=== PATIENT | female | born 1940 | race Caucasian/White ===

== ENCOUNTER 2017-03-15 17:47 | Inpatient (IN) | payer MEDICARE, BC, MEDICAID ==
[2017-03-15] MEDS: SOD CHLORIDE 0.9% 500 ML IV (19:05)
[2017-03-15 19:12] LABS: ADD MAN DIFF? NO
[2017-03-15 19:14] LABS: BASOPHILS % 0.4 % (0.0-2.0); EOSINOPHILS # 0.2 10^3/ul (0.0-0.5); EOSINOPHILS % 2.1 % (0.0-7.0); HEMATOCRIT 39.7 % (37.0-47.0); HEMOGLOBIN 12.3 g/dl (12.0-16.0); LYMPHOCYTES # 1.9 10^3/ul (0.8-2.9); LYMPHOCYTES % 20.8 % (15.0-51.0); MEAN CORPUSCULAR HEMOGLOBIN 25.1 pg (29.0-33.0); MEAN CORPUSCULAR VOLUME 80.9 fl (82.0-101.0); MEAN PLATELET VOLUME 8.6 fl (7.4-10.4); MONOCYTE # 0.8 10^3/ul (0.3-0.9); MONOCYTES % 8.4 % (0.0-11.0); NEUTROPHILS % 67.3 % (39.0-77.0); PLATELET COUNT 265 10^3/UL (140-415); RED BLOOD COUNT 4.91 10^6/ul (4.20-5.40); RED CELL DISTRIBUTION WIDTH 17.1 % (11.5-14.5)
[2017-03-15] MEDS ORDERED: ONDANSETRON 4 MG INJ IV (19:30)
[2017-03-15] MEDS ORDERED: ACETAMINOPHEN 325 MG TAB PO (19:30)
[2017-03-15 19:40] LABS: ALANINE AMINOTRANSFERASE 42 IU/L (13-69); ALBUMIN 3.8 g/dl (3.3-4.9); ALBUMIN/GLOBULIN RATIO 1.02; ALKALINE PHOSPHATASE 97 IU/L (42-121); ANION GAP 12 (8-16); ASPARTATE AMINO TRANSFERASE 22 IU/L (15-46); BILIRUBIN,INDIRECT 0.2 mg/dl (0-1.1); BILIRUBIN,TOTAL 0.2 mg/dl (0.2-1.3); BLOOD UREA NITROGEN 23 mg/dl (7-20); CARBON DIOXIDE 34 mmol/L (21-31); CHLORIDE 100 mmol/L (97-110); CREATININE 0.53 mg/dl (0.44-1.00); GLUCOSE 140 mg/dl (70-220); LIPASE 144 U/L (23-300); POTASSIUM 4.2 mmol/L (3.5-5.1); SODIUM 142 mmol/L (135-144); TOTAL PROTEIN 7.5 g/dl (6.1-8.1)
[2017-03-15 19:59] LABS: TROPONIN-I < 0.012 ng/ml (0.00-0.12)
[2017-03-15] MEDS ORDERED: VANCOMYCIN IV PER PHARMACY XX (22:30)
[2017-03-15] MEDS: SOD CHLORIDE 0.45% 1,000 ML IV (22:47)
[2017-03-15] MEDS ORDERED: GLUCAGON 1 MG INJ IM (23:00)
[2017-03-15] MEDS ORDERED: GLUCOSE GEL 15 GRAM TUBE PO ×2 (23:00)
[2017-03-15] MEDS ORDERED: GLUCOSE GEL 15 GRAM TUBE BUCCAL (23:00)
[2017-03-15] MEDS ORDERED: DEXTROSE 50% 50 ML SYRINGE IV (23:00)
[2017-03-16] MEDS: PIPER-TAZO 3.375 GM IV (PMX) 100 ML IVPB ×4 (00:03→17:05)
[2017-03-16] MEDS: ATORVASTATIN 40 MG TAB GTB ×2 (00:03→21:32)
[2017-03-16] MEDS: VANCOMYCIN 1.5 GM in DEXTROSE 5% 500 ML IVPB (01:15)
[2017-03-16] MEDS: ALBUTEROL/IPRATROPIUM (NEB) 3 ML AMP NEB ×4 (02:04→21:13)
[2017-03-16] MEDS ORDERED: FLUDROCORTISONE 0.1 MG TAB PO (06:00)
[2017-03-16 06:26] LABS: ADD MAN DIFF? NO
[2017-03-16 06:35] LABS: BASOPHIL # 0.1 10^3/ul (0.0-0.1); BASOPHILS % 0.5 % (0.0-2.0); EOSINOPHILS # 0.2 10^3/ul (0.0-0.5); HEMATOCRIT 34.6 % (37.0-47.0); HEMOGLOBIN 10.8 g/dl (12.0-16.0); LYMPHOCYTES # 1.2 10^3/ul (0.8-2.9); LYMPHOCYTES % 12.7 % (15.0-51.0); MEAN CORPUSCULAR HEMOGLOBIN 25.1 pg (29.0-33.0); MEAN CORPUSCULAR HGB CONC 31.2 g/dl (32.0-37.0); MEAN CORPUSCULAR VOLUME 80.5 fl (82.0-101.0); MEAN PLATELET VOLUME 8.7 fl (7.4-10.4); MONOCYTE # 0.8 10^3/ul (0.3-0.9); MONOCYTES % 8.6 % (0.0-11.0); NEUTROPHILS % 75.2 % (39.0-77.0); PLATELET COUNT 225 10^3/UL (140-415); RED CELL DISTRIBUTION WIDTH 16.9 % (11.5-14.5)
[2017-03-16 06:35] LABS: WHITE BLOOD COUNT 9.3 10^3/ul (4.8-10.8)
[2017-03-16] MEDS: FLUDROCORTISONE 0.1 MG TAB GTB ×3 (06:36→21:32)
[2017-03-16 07:05] LABS: ANION GAP 10 (8-16); BLOOD UREA NITROGEN 18 mg/dl (7-20); CALCIUM 9.6 mg/dl (8.4-10.2); CARBON DIOXIDE 31 mmol/L (21-31); CHLORIDE 103 mmol/L (97-110); CREATININE 0.58 mg/dl (0.44-1.00); GLUCOSE 173 mg/dl (70-220); POTASSIUM 3.8 mmol/L (3.5-5.1); SODIUM 140 mmol/L (135-144)
[2017-03-16 07:15] LABS: FREE T4 (FREE THYROXINE) 1.79 ng/dl (0.78-2.44)
[2017-03-16 08:06] LABS: CHOLESTEROL 121 mg/dl (100-200)
[2017-03-16 08:06] LABS: CHOL/HDL RATIO 2.8 RATIO; HDL CHOLESTEROL 43 mg/dl (33-92); LDL CHOLESTEROL,CALCULATED 59 mg/dl; TRIGLYCERIDES 94 mg/dl (0-149)
[2017-03-16] MEDS: LISINOPRIL 20 MG TAB GTB ×2 (08:40→21:32)
[2017-03-16] MEDS: LEVETIRACETAM (100 MG/ML) 5ML CUP GTB ×2 (08:40→21:31)
[2017-03-16] MEDS: AMIODARONE 200 MG TAB GTB ×2 (08:40→21:33)
[2017-03-16] MEDS: CLOPIDOGREL 75 MG TAB GTB (08:40)
[2017-03-16] MEDS: SPIRONOLACTONE 25 MG TAB GTB (08:41)
[2017-03-16] MEDS: FERROUS SULFATE 60 MG/ML 5ML CUP GTB (08:41)
[2017-03-16] MEDS: MULTIVITAMINS/MINERALS TAB GTB (08:41)
[2017-03-16] MEDS: METOPROLOL 100 MG TAB GTB ×2 (08:41→21:32)
[2017-03-16] MEDS: POLYETHYLENE GLYCOL 17 GM PACKET GTB (08:41)
[2017-03-16] MEDS: POTASSIUM CHLORIDE 20 MEQ POWDER FOR ORAL SOLN GTB (08:41)
[2017-03-16] MEDS: FAMOTIDINE 20 MG TAB GTB (08:41)
[2017-03-16] MEDS: INSULIN ASPART [NOVOLOG] 3 ML PEN SC ×4 (08:42→21:00)
[2017-03-16] MEDS ORDERED: POTASSIUM CHLORIDE (SR) 20 MEQ TAB PO (09:00)
[2017-03-16] MEDS ORDERED: LEVETIRACETAM (100 MG/ML) 5ML CUP GTB (09:00)
[2017-03-16] MEDS ORDERED: FERROUS SULFATE (EC) 325 MG TAB PO (09:00)
[2017-03-16 09:33] LABS: HEMOGLOBIN A1C 6.4 % (0-5.9)
[2017-03-16] MEDS: IOHEXOL 100 ML (10:18)
[2017-03-16] MEDS: SOD CHLORIDE 0.9% 100 ML (10:18)
[2017-03-16 11:27] LABS: ADD UMIC YES; UR ASCORBIC ACID NEGATIVE (NEGATIVE); UR BACTERIA FEW /HPF (NONE SEEN); UR BILIRUBIN (Dip) NEGATIVE (NEGATIVE); UR BLOOD (Dip) NEGATIVE (NEGATIVE); UR CLARITY CLEAR (CLEAR); UR COLOR STRAW (YELLOW); UR GLUCOSE (Dip) NEGATIVE (NEGATIVE); UR KETONES (Dip) NEGATIVE (NEGATIVE); UR LEUKOCYTE ESTERASE (Dip) 2+ Leu/ul (NEGATIVE); UR NITRITE (Dip) NEGATIVE (NEGATIVE); UR RBC 1 /HPF (0-5); UR SPECIFIC GRAVITY (Dip) 1.009 (1.003-1.030); UR TOTAL PROTEIN (Dip) NEGATIVE (NEGATIVE); UR UROBILINOGEN (Dip) NEGATIVE (NEGATIVE); UR WBC 28 /HPF (0-5)
[2017-03-16] MEDS: DIGOXIN 0.125 MG TAB GTB (13:57)
[2017-03-16] MEDS: ENOXAPARIN 40 MG/0.4 ML SYG SC (16:22)
[2017-03-16] MEDS: SOD CHLORIDE 0.45% 1,000 ML IV (17:06)
[2017-03-16] MEDS: INSULIN GLARGINE [LANtus] 3 ML PEN SC (21:40)
[2017-03-17] MEDS: PIPER-TAZO 3.375 GM IV (PMX) 100 ML IVPB ×4 (00:13→18:03)
[2017-03-17] MEDS ORDERED: VANCOMYCIN 1 GM 250 ML IVPB (01:00)
[2017-03-17] MEDS: ALBUTEROL/IPRATROPIUM (NEB) 3 ML AMP NEB ×4 (01:04→20:27)
[2017-03-17] MEDS: VANCOMYCIN 1.5 GM in DEXTROSE 5% 500 ML IVPB (01:41)
[2017-03-17] MEDS: FLUDROCORTISONE 0.1 MG TAB GTB ×3 (05:35→20:32)
[2017-03-17 06:34] LABS: ADD MAN DIFF? NO
[2017-03-17 06:43] LABS: WHITE BLOOD COUNT 7.7 10^3/ul (4.8-10.8)
[2017-03-17 06:43] LABS: BASOPHILS % 0.4 % (0.0-2.0); EOSINOPHILS # 0.2 10^3/ul (0.0-0.5); EOSINOPHILS % 2.2 % (0.0-7.0); HEMATOCRIT 32.4 % (37.0-47.0); HEMOGLOBIN 10.2 g/dl (12.0-16.0); LYMPHOCYTES # 1.3 10^3/ul (0.8-2.9); LYMPHOCYTES % 16.7 % (15.0-51.0); MEAN CORPUSCULAR HEMOGLOBIN 25.4 pg (29.0-33.0); MEAN CORPUSCULAR HGB CONC 31.5 g/dl (32.0-37.0); MEAN CORPUSCULAR VOLUME 80.8 fl (82.0-101.0); MEAN PLATELET VOLUME 8.9 fl (7.4-10.4); MONOCYTE # 0.7 10^3/ul (0.3-0.9); MONOCYTES % 8.6 % (0.0-11.0); NEUTROPHIL # 5.5 10^3/ul (1.6-7.5); NEUTROPHILS % 71.2 % (39.0-77.0); PLATELET COUNT 207 10^3/UL (140-415); RED BLOOD COUNT 4.01 10^6/ul (4.20-5.40); RED CELL DISTRIBUTION WIDTH 17.1 % (11.5-14.5)
[2017-03-17 07:15] LABS: ANION GAP 9 (8-16); BLOOD UREA NITROGEN 20 mg/dl (7-20); CARBON DIOXIDE 33 mmol/L (21-31); CHLORIDE 103 mmol/L (97-110); CREATININE 0.61 mg/dl (0.44-1.00); GLUCOSE 158 mg/dl (70-220); POTASSIUM 3.5 mmol/L (3.5-5.1); SODIUM 141 mmol/L (135-144)
[2017-03-17] MEDS: INSULIN ASPART [NOVOLOG] 3 ML PEN SC ×4 (07:52→20:37)
[2017-03-17] MEDS: FAMOTIDINE 20 MG TAB GTB (09:20)
[2017-03-17] MEDS: POTASSIUM CHLORIDE 20 MEQ POWDER FOR ORAL SOLN GTB (09:20)
[2017-03-17] MEDS: SPIRONOLACTONE 25 MG TAB GTB (09:20)
[2017-03-17] MEDS: MULTIVITAMINS/MINERALS TAB GTB (09:20)
[2017-03-17] MEDS: FERROUS SULFATE 60 MG/ML 5ML CUP GTB (09:20)
[2017-03-17] MEDS: POLYETHYLENE GLYCOL 17 GM PACKET GTB (09:20)
[2017-03-17] MEDS: LEVETIRACETAM (100 MG/ML) 5ML CUP GTB ×2 (09:20→20:30)
[2017-03-17] MEDS: METOPROLOL 100 MG TAB GTB ×2 (09:21→20:32)
[2017-03-17] MEDS: AMIODARONE 200 MG TAB GTB ×2 (09:21→20:32)
[2017-03-17] MEDS: LISINOPRIL 20 MG TAB GTB ×2 (09:21→20:31)
[2017-03-17] MEDS: ENOXAPARIN 40 MG/0.4 ML SYG SC (09:23)
[2017-03-17 12:05] LABS: COLLAGEN/EPI 129 Secs. (51-198)
[2017-03-17 12:14] LABS: INR 1.07; PARTIAL THROMBOPLASTIN TIME 31.5 Sec (25.0-35.0); PT RATIO 1.1
[2017-03-17] MEDS: SOD CHLORIDE 0.45% 1,000 ML IV (12:26)
[2017-03-17] MEDS: DIGOXIN 0.125 MG TAB GTB (13:08)
[2017-03-17] MEDS: ATORVASTATIN 40 MG TAB GTB (20:30)
[2017-03-17] MEDS: INSULIN GLARGINE [LANtus] 3 ML PEN SC (20:37)
[2017-03-18] MEDS: PIPER-TAZO 3.375 GM IV (PMX) 100 ML IVPB ×3 (00:29→12:17)
[2017-03-18] MEDS: INSULIN ASPART [NOVOLOG] 3 ML PEN SC ×6 (01:00→21:00)
[2017-03-18] MEDS: ALBUTEROL/IPRATROPIUM (NEB) 3 ML AMP NEB ×4 (01:19→20:28)
[2017-03-18] MEDS: VANCOMYCIN 1.5 GM in DEXTROSE 5% 500 ML IVPB (01:24)
[2017-03-18] MEDS: FLUDROCORTISONE 0.1 MG TAB GTB ×3 (05:06→21:51)
[2017-03-18 06:33] LABS: ADD MAN DIFF? NO
[2017-03-18 06:39] LABS: WHITE BLOOD COUNT 7.6 10^3/ul (4.8-10.8)
[2017-03-18 06:39] LABS: BASOPHILS % 0.5 % (0.0-2.0); EOSINOPHILS # 0.2 10^3/ul (0.0-0.5); HEMATOCRIT 33.8 % (37.0-47.0); HEMOGLOBIN 10.7 g/dl (12.0-16.0); LYMPHOCYTES # 1.5 10^3/ul (0.8-2.9); LYMPHOCYTES % 20.2 % (15.0-51.0); MEAN CORPUSCULAR HEMOGLOBIN 25.3 pg (29.0-33.0); MEAN CORPUSCULAR HGB CONC 31.7 g/dl (32.0-37.0); MEAN CORPUSCULAR VOLUME 79.9 fl (82.0-101.0); MEAN PLATELET VOLUME 8.5 fl (7.4-10.4); MONOCYTE # 0.7 10^3/ul (0.3-0.9); NEUTROPHILS % 66.8 % (39.0-77.0); PLATELET COUNT 224 10^3/UL (140-415); RED BLOOD COUNT 4.23 10^6/ul (4.20-5.40); RED CELL DISTRIBUTION WIDTH 17.2 % (11.5-14.5)
[2017-03-18 07:05] LABS: ANION GAP 11 (8-16); BLOOD UREA NITROGEN 14 mg/dl (7-20); CALCIUM 9.4 mg/dl (8.4-10.2); CARBON DIOXIDE 30 mmol/L (21-31); CHLORIDE 105 mmol/L (97-110); CREATININE 0.61 mg/dl (0.44-1.00); GLUCOSE 105 mg/dl (70-220); POTASSIUM 3.3 mmol/L (3.5-5.1); SODIUM 143 mmol/L (135-144)
[2017-03-18] MEDS: LISINOPRIL 20 MG TAB GTB ×2 (09:41→21:51)
[2017-03-18] MEDS: LEVETIRACETAM (100 MG/ML) 5ML CUP GTB ×2 (09:41→21:47)
[2017-03-18] MEDS: MULTIVITAMINS/MINERALS TAB GTB (09:41)
[2017-03-18] MEDS: FERROUS SULFATE 60 MG/ML 5ML CUP GTB (09:41)
[2017-03-18] MEDS: POLYETHYLENE GLYCOL 17 GM PACKET GTB (09:41)
[2017-03-18] MEDS: POTASSIUM CHLORIDE 20 MEQ POWDER FOR ORAL SOLN GTB ×2 (09:41→15:10)
[2017-03-18] MEDS: FAMOTIDINE 20 MG TAB GTB (09:42)
[2017-03-18] MEDS: METOPROLOL 100 MG TAB GTB ×2 (09:42→21:50)
[2017-03-18] MEDS: SPIRONOLACTONE 25 MG TAB GTB (09:42)
[2017-03-18] MEDS: AMIODARONE 200 MG TAB GTB ×2 (09:42→21:51)
[2017-03-18] MEDS: ENOXAPARIN 40 MG/0.4 ML SYG SC (09:47)
[2017-03-18] MEDS: SOD CHLORIDE 0.45% 1,000 ML IV (10:30)
[2017-03-18] MEDS: DIGOXIN 0.125 MG TAB GTB (12:21)
[2017-03-18] MEDS: MEROPENEM 1 GM/50ML(PMX) 50 ML IVPB ×2 (14:24→22:09)
[2017-03-18] MEDS: ATORVASTATIN 40 MG TAB GTB (21:51)
[2017-03-18] MEDS: INSULIN GLARGINE [LANtus] 3 ML PEN SC (22:07)
[2017-03-19] MEDS: INSULIN ASPART [NOVOLOG] 3 ML PEN SC ×6 (01:00→21:00)
[2017-03-19] MEDS: ALBUTEROL/IPRATROPIUM (NEB) 3 ML AMP NEB ×4 (01:02→20:03)
[2017-03-19 01:44] LABS: VANCOMYCIN,TROUGH 12.2 ug/ml (10.0-20.0)
[2017-03-19] MEDS: VANCOMYCIN 1.5 GM in DEXTROSE 5% 500 ML IVPB (02:40)
[2017-03-19] MEDS: FLUDROCORTISONE 0.1 MG TAB GTB ×3 (05:09→21:35)
[2017-03-19] MEDS: SOD CHLORIDE 0.45% 1,000 ML IV (05:09)
[2017-03-19 06:18] LABS: ADD MAN DIFF? NO
[2017-03-19 06:27] LABS: BASOPHILS % 0.5 % (0.0-2.0); EOSINOPHILS # 0.2 10^3/ul (0.0-0.5); HEMATOCRIT 35.1 % (37.0-47.0); HEMOGLOBIN 10.9 g/dl (12.0-16.0); LYMPHOCYTES # 1.5 10^3/ul (0.8-2.9); LYMPHOCYTES % 19.3 % (15.0-51.0); MEAN CORPUSCULAR HGB CONC 31.1 g/dl (32.0-37.0); MEAN CORPUSCULAR VOLUME 80.5 fl (82.0-101.0); MEAN PLATELET VOLUME 8.6 fl (7.4-10.4); MONOCYTE # 0.8 10^3/ul (0.3-0.9); MONOCYTES % 9.7 % (0.0-11.0); NEUTROPHIL # 5.3 10^3/ul (1.6-7.5); NEUTROPHILS % 66.9 % (39.0-77.0); PLATELET COUNT 235 10^3/UL (140-415); RED BLOOD COUNT 4.36 10^6/ul (4.20-5.40); RED CELL DISTRIBUTION WIDTH 16.7 % (11.5-14.5)
[2017-03-19 06:27] LABS: WHITE BLOOD COUNT 7.9 10^3/ul (4.8-10.8)
[2017-03-19 07:25] LABS: ANION GAP 10 (8-16); BLOOD UREA NITROGEN 14 mg/dl (7-20); CALCIUM 9.4 mg/dl (8.4-10.2); CARBON DIOXIDE 30 mmol/L (21-31); CHLORIDE 106 mmol/L (97-110); CREATININE 0.59 mg/dl (0.44-1.00); GLUCOSE 108 mg/dl (70-220); POTASSIUM 3.3 mmol/L (3.5-5.1); SODIUM 143 mmol/L (135-144)
[2017-03-19] MEDS: POTASSIUM CHLORIDE 20 MEQ POWDER FOR ORAL SOLN GTB (08:55)
[2017-03-19] MEDS: FAMOTIDINE 20 MG TAB GTB (08:55)
[2017-03-19] MEDS: POLYETHYLENE GLYCOL 17 GM PACKET GTB (08:55)
[2017-03-19] MEDS: FERROUS SULFATE 60 MG/ML 5ML CUP GTB (08:55)
[2017-03-19] MEDS: LEVETIRACETAM (100 MG/ML) 5ML CUP GTB ×2 (08:55→21:35)
[2017-03-19] MEDS: LISINOPRIL 20 MG TAB GTB ×2 (08:56→21:37)
[2017-03-19] MEDS: SPIRONOLACTONE 25 MG TAB GTB (08:56)
[2017-03-19] MEDS: ENOXAPARIN 40 MG/0.4 ML SYG SC (08:56)
[2017-03-19] MEDS: MULTIVITAMINS/MINERALS TAB GTB (08:56)
[2017-03-19] MEDS: AMIODARONE 200 MG TAB GTB ×2 (08:57→21:37)
[2017-03-19] MEDS: METOPROLOL 100 MG TAB GTB ×2 (08:57→21:36)
[2017-03-19] MEDS: MEROPENEM 1 GM/50ML(PMX) 50 ML IVPB ×2 (08:58→21:36)
[2017-03-19] MEDS: POTASSIUM CHLORIDE 100 ML IVPB (13:28)
[2017-03-19] MEDS: DIGOXIN 0.125 MG TAB GTB (13:34)
[2017-03-19] MEDS: ATORVASTATIN 40 MG TAB GTB (21:36)
[2017-03-19] MEDS: INSULIN GLARGINE [LANtus] 3 ML PEN SC (21:39)
[2017-03-19] MEDS ORDERED: VANCOMYCIN 1.75 GM in D5W 500 ML IVPB (23:00)
[2017-03-20] MEDS: VANCOMYCIN 1.75 GM in D5W 500 ML IVPB (00:42)
[2017-03-20] MEDS: INSULIN ASPART [NOVOLOG] 3 ML PEN SC ×4 (01:00→17:45)
[2017-03-20] MEDS: ALBUTEROL/IPRATROPIUM (NEB) 3 ML AMP NEB ×4 (01:25→19:53)
[2017-03-20] MEDS: SOD CHLORIDE 0.45% 1,000 ML IV ×2 (02:30→17:00)
[2017-03-20] MEDS: FLUDROCORTISONE 0.1 MG TAB GTB ×3 (05:11→21:22)
[2017-03-20 06:27] LABS: ADD MAN DIFF? NO
[2017-03-20 06:35] LABS: WHITE BLOOD COUNT 8.6 10^3/ul (4.8-10.8)
[2017-03-20 06:35] LABS: BASOPHILS % 0.3 % (0.0-2.0); EOSINOPHILS # 0.2 10^3/ul (0.0-0.5); EOSINOPHILS % 2.5 % (0.0-7.0); HEMATOCRIT 37.3 % (37.0-47.0); HEMOGLOBIN 11.7 g/dl (12.0-16.0); LYMPHOCYTES # 1.9 10^3/ul (0.8-2.9); LYMPHOCYTES % 21.9 % (15.0-51.0); MEAN CORPUSCULAR HEMOGLOBIN 25.5 pg (29.0-33.0); MEAN CORPUSCULAR HGB CONC 31.4 g/dl (32.0-37.0); MEAN CORPUSCULAR VOLUME 81.4 fl (82.0-101.0); MEAN PLATELET VOLUME 8.7 fl (7.4-10.4); MONOCYTE # 0.8 10^3/ul (0.3-0.9); MONOCYTES % 9.7 % (0.0-11.0); NEUTROPHIL # 5.6 10^3/ul (1.6-7.5); NEUTROPHILS % 64.6 % (39.0-77.0); PLATELET COUNT 248 10^3/UL (140-415); RED BLOOD COUNT 4.58 10^6/ul (4.20-5.40); RED CELL DISTRIBUTION WIDTH 17.2 % (11.5-14.5)
[2017-03-20 06:44] LABS: ANION GAP 10 (8-16); BLOOD UREA NITROGEN 15 mg/dl (7-20); CALCIUM 9.3 mg/dl (8.4-10.2); CARBON DIOXIDE 32 mmol/L (21-31); CHLORIDE 105 mmol/L (97-110); CREATININE 0.59 mg/dl (0.44-1.00); GLUCOSE 159 mg/dl (70-220); POTASSIUM 3.8 mmol/L (3.5-5.1); SODIUM 143 mmol/L (135-144)
[2017-03-20] MEDS: SPIRONOLACTONE 25 MG TAB GTB (09:48)
[2017-03-20] MEDS: LEVETIRACETAM (100 MG/ML) 5ML CUP GTB ×2 (09:49→21:19)
[2017-03-20] MEDS: METOPROLOL 100 MG TAB GTB ×2 (09:49→21:22)
[2017-03-20] MEDS: FERROUS SULFATE 60 MG/ML 5ML CUP GTB (09:49)
[2017-03-20] MEDS: AMIODARONE 200 MG TAB GTB ×2 (09:49→21:22)
[2017-03-20] MEDS: MULTIVITAMINS/MINERALS TAB GTB (09:50)
[2017-03-20] MEDS: POLYETHYLENE GLYCOL 17 GM PACKET GTB (09:50)
[2017-03-20] MEDS: FAMOTIDINE 20 MG TAB GTB (09:50)
[2017-03-20] MEDS: MEROPENEM 1 GM/50ML(PMX) 50 ML IVPB ×2 (09:51→21:18)
[2017-03-20] MEDS: LISINOPRIL 20 MG TAB GTB ×2 (09:51→21:22)
[2017-03-20] MEDS: ENOXAPARIN 40 MG/0.4 ML SYG SC (09:52)
[2017-03-20] MEDS: POTASSIUM CHLORIDE 20 MEQ POWDER FOR ORAL SOLN GTB (09:59)
[2017-03-20] MEDS: DIGOXIN 0.125 MG TAB GTB (13:58)
[2017-03-20] MEDS: ATORVASTATIN 40 MG TAB GTB (21:22)
[2017-03-20] MEDS: INSULIN GLARGINE [LANtus] 3 ML PEN SC (21:28)
[2017-03-21] MEDS: DEXTROSE 5%-0.45% NACL 1,000 ML IV ×2 (00:16→13:20)
[2017-03-21] MEDS: VANCOMYCIN 1.75 GM in D5W 500 ML IVPB ×2 (00:16→23:59)
[2017-03-21] MEDS: ALBUTEROL/IPRATROPIUM (NEB) 3 ML AMP NEB ×4 (02:23→19:42)
[2017-03-21] MEDS: INSULIN ASPART [NOVOLOG] 3 ML PEN SC ×4 (06:07→18:00)
[2017-03-21 06:35] LABS: ADD MAN DIFF? NO
[2017-03-21 06:44] LABS: WHITE BLOOD COUNT 7.2 10^3/ul (4.8-10.8)
[2017-03-21 06:44] LABS: BASOPHILS % 0.6 % (0.0-2.0); EOSINOPHILS # 0.2 10^3/ul (0.0-0.5); EOSINOPHILS % 2.1 % (0.0-7.0); HEMATOCRIT 34.3 % (37.0-47.0); HEMOGLOBIN 10.7 g/dl (12.0-16.0); LYMPHOCYTES # 1.7 10^3/ul (0.8-2.9); LYMPHOCYTES % 24.1 % (15.0-51.0); MEAN CORPUSCULAR HEMOGLOBIN 25.5 pg (29.0-33.0); MEAN CORPUSCULAR HGB CONC 31.2 g/dl (32.0-37.0); MEAN CORPUSCULAR VOLUME 81.9 fl (82.0-101.0); MEAN PLATELET VOLUME 8.6 fl (7.4-10.4); MONOCYTE # 0.7 10^3/ul (0.3-0.9); MONOCYTES % 9.3 % (0.0-11.0); NEUTROPHIL # 4.5 10^3/ul (1.6-7.5); NEUTROPHILS % 62.9 % (39.0-77.0); PLATELET COUNT 203 10^3/UL (140-415); RED BLOOD COUNT 4.19 10^6/ul (4.20-5.40)
[2017-03-21] MEDS: FLUDROCORTISONE 0.1 MG TAB GTB ×3 (06:50→22:02)
[2017-03-21] MEDS: METOPROLOL 100 MG TAB GTB ×2 (09:00→21:14)
[2017-03-21] MEDS: ENOXAPARIN 40 MG/0.4 ML SYG SC (09:00)
[2017-03-21] MEDS: AMIODARONE 200 MG TAB GTB ×2 (09:00→21:13)
[2017-03-21] MEDS: SPIRONOLACTONE 25 MG TAB GTB (09:00)
[2017-03-21] MEDS: POLYETHYLENE GLYCOL 17 GM PACKET GTB (09:00)
[2017-03-21] MEDS: LEVETIRACETAM (100 MG/ML) 5ML CUP GTB ×2 (09:00→21:12)
[2017-03-21] MEDS: MULTIVITAMINS/MINERALS TAB GTB (09:00)
[2017-03-21] MEDS: LISINOPRIL 20 MG TAB GTB ×2 (09:00→21:14)
[2017-03-21] MEDS: FERROUS SULFATE 60 MG/ML 5ML CUP GTB (09:00)
[2017-03-21] MEDS: POTASSIUM CHLORIDE 20 MEQ POWDER FOR ORAL SOLN GTB (09:00)
[2017-03-21] MEDS: FAMOTIDINE 20 MG TAB GTB (09:00)
[2017-03-21] MEDS: MEROPENEM 1 GM/50ML(PMX) 50 ML IVPB ×2 (09:12→22:01)
[2017-03-21 10:27] LABS: COLLAGEN/EPI > 740 Secs. (51-198)
[2017-03-21 10:28] LABS: COLLAGEN/ADP 122 Secs. (40-147)
[2017-03-21] MEDS: DIGOXIN 0.125 MG TAB GTB (13:00)
[2017-03-21 13:28] LABS: INR 0.92; PROTIME 12.4 Sec (11.9-14.9)
[2017-03-21 13:29] LABS: PARTIAL THROMBOPLASTIN TIME 25.3 Sec (25.0-35.0)
[2017-03-21] MEDS ORDERED: PROPOFOL 20 ML (17:28)
[2017-03-21] MEDS ORDERED: FENTAnyl 50 MCG/ML VIAL (17:28)
[2017-03-21] MEDS ORDERED: ROCURONIUM 50 MG INJ (17:28)
[2017-03-21] MEDS ORDERED: FENTAnyl 50 MCG/ML VIAL IV ×3 (17:30)
[2017-03-21] MEDS ORDERED: EPHEDrine SULFATE 50 MG/5 ML SYG IV (17:30)
[2017-03-21] MEDS ORDERED: ALBUMIN HUMAN 5% 250 ML IV (17:30)
[2017-03-21] MEDS ORDERED: ONDANSETRON 4 MG INJ IV (17:30)
[2017-03-21] MEDS ORDERED: MEPERIDINE 25 MG INJ IV (17:30)
[2017-03-21] MEDS ORDERED: METOCLOPRAMIDE 10 MG INJ IV (17:30)
[2017-03-21] MEDS ORDERED: LABETALOL HCL 20MG INJ IV (17:30)
[2017-03-21] MEDS ORDERED: HYDROmorphONE (0.2 MG/ML) 10ML SYG IV ×3 (17:30)
[2017-03-21] MEDS ORDERED: DIPHENHYDRAMINE 50 MG INJ IV (17:30)
[2017-03-21] MEDS ORDERED: hydrALAzine 20 MG INJ IV (17:30)
[2017-03-21] MEDS ORDERED: MIDAZOLAM 1 MG/ML 2 ML INJ (17:58)
[2017-03-21] MEDS: SOD CHLORIDE 0.45% 1,000 ML IV ×2 (18:30→22:02)
[2017-03-21] MEDS ORDERED: PHENYLephrine (100 MCG/ML) 5ML SYG (18:35)
[2017-03-21] MEDS ORDERED: LABETALOL HCL 20MG INJ (18:35)
[2017-03-21] MEDS ORDERED: hydrALAzine 20 MG INJ (18:43)
[2017-03-21] MEDS ORDERED: ONDANSETRON 4 MG INJ (18:53)
[2017-03-21] MEDS ORDERED: METOCLOPRAMIDE 10 MG INJ (18:53)
[2017-03-21] MEDS ORDERED: SUGAMMADEX SODIUM 200 MG/2 ML VIAL IV (18:53)
[2017-03-21] MEDS ORDERED: DEXAMETHASONE 4 MG/ML 1 ML INJ (18:53)
[2017-03-21] MEDS ORDERED: CEFAZOLIN 1 GM INJ (18:54)
[2017-03-21] MEDS: GELATIN SIZE 100 SPONGE (19:04)
[2017-03-21] MEDS: THROMBIN 5000 UNIT VIAL (19:05)
[2017-03-21] MEDS: BACITRACIN 50000 UNITS INJ IRR (19:05)
[2017-03-21] MEDS: NEOMYC/POLYMYX/BACIT 30 GM OINT (19:20)
[2017-03-21 19:45] LABS: CSF MN% 82.7 %; CSF PMN% 17.3 %; CSF RBC 1000 /uL (0-0)
[2017-03-21 20:14] LABS: GLUCOSE,CSF 71 mg/dl (50-80)
[2017-03-21 20:37] LABS: CSF COLOR COLORLESS
[2017-03-21 20:37] LABS: CSF CLARITY CLEAR; CSF WBC 29 /cmm (0-10)
[2017-03-21 20:39] LABS: CSF#TUBE COUNT TUBE#1; CSF#TUBES REC'D 1
[2017-03-21] MEDS: ATORVASTATIN 40 MG TAB GTB (21:13)
[2017-03-21] MEDS: INSULIN GLARGINE [LANtus] 3 ML PEN SC (22:04)
[2017-03-22] MEDS: INSULIN ASPART [NOVOLOG] 3 ML PEN SC ×4 (00:06→18:00)
[2017-03-22] MEDS: ALBUTEROL/IPRATROPIUM (NEB) 3 ML AMP NEB ×4 (01:24→19:46)
[2017-03-22 04:44] LABS: ADD MAN DIFF? NO
[2017-03-22 04:45] LABS: BASOPHILS % 0.2 % (0.0-2.0); HEMOGLOBIN 11.5 g/dl (12.0-16.0); LYMPHOCYTES # 0.7 10^3/ul (0.8-2.9); LYMPHOCYTES % 5.6 % (15.0-51.0); MEAN CORPUSCULAR HEMOGLOBIN 25.5 pg (29.0-33.0); MEAN CORPUSCULAR HGB CONC 31.9 g/dl (32.0-37.0); MEAN CORPUSCULAR VOLUME 79.8 fl (82.0-101.0); MEAN PLATELET VOLUME 8.6 fl (7.4-10.4); MONOCYTE # 0.3 10^3/ul (0.3-0.9); MONOCYTES % 2.6 % (0.0-11.0); NEUTROPHIL # 11.9 10^3/ul (1.6-7.5); NEUTROPHILS % 90.8 % (39.0-77.0); PLATELET COUNT 245 10^3/UL (140-415); RED BLOOD COUNT 4.51 10^6/ul (4.20-5.40)
[2017-03-22 04:45] LABS: WHITE BLOOD COUNT 13.1 10^3/ul (4.8-10.8)
[2017-03-22 05:25] LABS: ANION GAP 10 (8-16); BLOOD UREA NITROGEN 12 mg/dl (7-20); CARBON DIOXIDE 30 mmol/L (21-31); CHLORIDE 104 mmol/L (97-110); GLUCOSE 190 mg/dl (70-220); SODIUM 140 mmol/L (135-144)
[2017-03-22] MEDS: FLUDROCORTISONE 0.1 MG TAB GTB ×3 (05:52→21:43)
[2017-03-22] MEDS: POTASSIUM CHLORIDE 20 MEQ POWDER FOR ORAL SOLN GTB (09:39)
[2017-03-22] MEDS: LEVETIRACETAM (100 MG/ML) 5ML CUP GTB ×2 (09:39→20:19)
[2017-03-22] MEDS: LISINOPRIL 20 MG TAB GTB ×2 (09:39→20:15)
[2017-03-22] MEDS: METOPROLOL 100 MG TAB GTB ×2 (09:40→20:14)
[2017-03-22] MEDS: FAMOTIDINE 20 MG TAB GTB (09:40)
[2017-03-22] MEDS: FERROUS SULFATE 60 MG/ML 5ML CUP GTB (09:40)
[2017-03-22] MEDS: MULTIVITAMINS/MINERALS TAB GTB (09:40)
[2017-03-22] MEDS: AMIODARONE 200 MG TAB GTB ×2 (09:40→20:14)
[2017-03-22] MEDS: SPIRONOLACTONE 25 MG TAB GTB (09:40)
[2017-03-22] MEDS: POLYETHYLENE GLYCOL 17 GM PACKET GTB (09:41)
[2017-03-22] MEDS: MEROPENEM 1 GM/50ML(PMX) 50 ML IVPB ×2 (09:42→20:19)
[2017-03-22] MEDS ORDERED: hydrALAzine 20 MG INJ (12:37)
[2017-03-22] MEDS ORDERED: niCARdipine 25 MG in SOD CHLORIDE 0.9% 250 ML IV (13:00)
[2017-03-22] MEDS: hydrALAzine 20 MG INJ IV (13:25)
[2017-03-22] MEDS: DIGOXIN 0.125 MG TAB GTB (13:25)
[2017-03-22] MEDS: ATORVASTATIN 40 MG TAB GTB (20:15)
[2017-03-22] MEDS: SOD CHLORIDE 0.45% 1,000 ML IV (20:19)
[2017-03-22] MEDS: INSULIN GLARGINE [LANtus] 3 ML PEN SC (20:55)
[2017-03-22] MEDS ORDERED: INSULIN GLARGINE [LANtus] 3 ML PEN SC (21:00)
[2017-03-22 23:23] LABS: VANCOMYCIN,TROUGH 18.8 ug/ml (10.0-20.0)
[2017-03-23] MEDS: VANCOMYCIN 1.75 GM in D5W 500 ML IVPB (00:46)
[2017-03-23] MEDS: DEXTROSE 50% 50 ML SYRINGE IV (00:48)
[2017-03-23] MEDS: ALBUTEROL/IPRATROPIUM (NEB) 3 ML AMP NEB ×4 (02:39→19:41)
[2017-03-23] MEDS: INSULIN ASPART [NOVOLOG] 3 ML PEN SC ×4 (05:16→18:00)
[2017-03-23] MEDS: FLUDROCORTISONE 0.1 MG TAB GTB ×3 (05:33→21:29)
[2017-03-23 06:19] LABS: ADD MAN DIFF? NO
[2017-03-23 06:23] LABS: WHITE BLOOD COUNT 8.9 10^3/ul (4.8-10.8)
[2017-03-23 06:23] LABS: BASOPHILS % 0.2 % (0.0-2.0); EOSINOPHILS % 0.3 % (0.0-7.0); HEMATOCRIT 34.4 % (37.0-47.0); HEMOGLOBIN 10.9 g/dl (12.0-16.0); LYMPHOCYTES # 1.7 10^3/ul (0.8-2.9); LYMPHOCYTES % 19.2 % (15.0-51.0); MEAN CORPUSCULAR HGB CONC 31.7 g/dl (32.0-37.0); MEAN CORPUSCULAR VOLUME 81.9 fl (82.0-101.0); MEAN PLATELET VOLUME 8.8 fl (7.4-10.4); MONOCYTES % 10.6 % (0.0-11.0); NEUTROPHIL # 6.2 10^3/ul (1.6-7.5); PLATELET COUNT 239 10^3/UL (140-415); RED CELL DISTRIBUTION WIDTH 17.7 % (11.5-14.5)
[2017-03-23 06:50] LABS: ANION GAP 10 (8-16); BLOOD UREA NITROGEN 13 mg/dl (7-20); CALCIUM 9.5 mg/dl (8.4-10.2); CARBON DIOXIDE 32 mmol/L (21-31); CHLORIDE 104 mmol/L (97-110); CREATININE 0.57 mg/dl (0.44-1.00); GLUCOSE 132 mg/dl (70-220); POTASSIUM 3.2 mmol/L (3.5-5.1); SODIUM 143 mmol/L (135-144)
[2017-03-23] MEDS: POLYETHYLENE GLYCOL 17 GM PACKET GTB (09:58)
[2017-03-23] MEDS: FERROUS SULFATE 60 MG/ML 5ML CUP GTB (09:58)
[2017-03-23] MEDS: LEVETIRACETAM (100 MG/ML) 5ML CUP GTB ×2 (09:58→21:12)
[2017-03-23] MEDS: POTASSIUM CHLORIDE 20 MEQ POWDER FOR ORAL SOLN GTB (09:59)
[2017-03-23] MEDS: AMIODARONE 200 MG TAB GTB ×2 (09:59→21:12)
[2017-03-23] MEDS: MULTIVITAMINS/MINERALS TAB GTB (09:59)
[2017-03-23] MEDS: FAMOTIDINE 20 MG TAB GTB (10:00)
[2017-03-23] MEDS: MEROPENEM 1 GM/50ML(PMX) 50 ML IVPB ×2 (10:00→21:11)
[2017-03-23] MEDS: LISINOPRIL 20 MG TAB GTB ×2 (10:00→21:12)
[2017-03-23] MEDS: METOPROLOL 100 MG TAB GTB ×2 (10:00→21:27)
[2017-03-23] MEDS: SPIRONOLACTONE 25 MG TAB GTB (10:01)
[2017-03-23] MEDS: DIGOXIN 0.125 MG TAB GTB (13:00)
[2017-03-23 19:47] LABS: ANION GAP 11 (8-16); BLOOD UREA NITROGEN 11 mg/dl (7-20); CALCIUM 9.9 mg/dl (8.4-10.2); CARBON DIOXIDE 31 mmol/L (21-31); CHLORIDE 107 mmol/L (97-110); CREATININE 0.62 mg/dl (0.44-1.00); GLUCOSE 110 mg/dl (70-220); POTASSIUM 3.5 mmol/L (3.5-5.1); SODIUM 145 mmol/L (135-144)
[2017-03-23] MEDS: ATORVASTATIN 40 MG TAB GTB (21:12)
[2017-03-23] MEDS: INSULIN GLARGINE [LANtus] 3 ML PEN SC (21:16)
[2017-03-24] MEDS ORDERED: VANCOMYCIN 1.5 GM in SOD CHLORIDE 0.9% 250 ML IVPB
[2017-03-24] MEDS: VANCOMYCIN 1.75 GM in D5W 500 ML IVPB (00:15)
[2017-03-24] MEDS: ALBUTEROL/IPRATROPIUM (NEB) 3 ML AMP NEB ×4 (01:37→19:25)
[2017-03-24] MEDS: INSULIN ASPART [NOVOLOG] 3 ML PEN SC ×5 (05:31→17:40)
[2017-03-24] MEDS: FLUDROCORTISONE 0.1 MG TAB GTB ×3 (05:32→21:51)
[2017-03-24 06:08] LABS: ADD MAN DIFF? NO
[2017-03-24 06:50] LABS: BASOPHILS % 0.4 % (0.0-2.0); EOSINOPHILS # 0.2 10^3/ul (0.0-0.5); EOSINOPHILS % 1.6 % (0.0-7.0); HEMATOCRIT 33.9 % (37.0-47.0); HEMOGLOBIN 10.7 g/dl (12.0-16.0); LYMPHOCYTES # 1.7 10^3/ul (0.8-2.9); MEAN CORPUSCULAR HEMOGLOBIN 25.6 pg (29.0-33.0); MEAN CORPUSCULAR HGB CONC 31.6 g/dl (32.0-37.0); MEAN CORPUSCULAR VOLUME 81.1 fl (82.0-101.0); MEAN PLATELET VOLUME 8.9 fl (7.4-10.4); MONOCYTES % 10.4 % (0.0-11.0); NEUTROPHIL # 6.5 10^3/ul (1.6-7.5); PLATELET COUNT 223 10^3/UL (140-415); RED BLOOD COUNT 4.18 10^6/ul (4.20-5.40); RED CELL DISTRIBUTION WIDTH 17.3 % (11.5-14.5)
[2017-03-24 06:50] LABS: WHITE BLOOD COUNT 9.4 10^3/ul (4.8-10.8)
[2017-03-24 06:52] LABS: BLOOD UREA NITROGEN 15 mg/dl (7-20); CALCIUM 8.8 mg/dl (8.4-10.2); CARBON DIOXIDE 33 mmol/L (21-31); CHLORIDE 104 mmol/L (97-110); CREATININE 0.56 mg/dl (0.44-1.00); GLUCOSE 209 mg/dl (70-220); SODIUM 144 mmol/L (135-144)
[2017-03-24 08:06] LABS: ANION GAP 10 (8-16)
[2017-03-24 08:09] LABS: POTASSIUM 3.2 mmol/L (3.5-5.1)
[2017-03-24] MEDS: METOPROLOL 100 MG TAB GTB ×2 (09:26→20:49)
[2017-03-24] MEDS: FAMOTIDINE 20 MG TAB GTB (09:26)
[2017-03-24] MEDS: MEROPENEM 1 GM/50ML(PMX) 50 ML IVPB ×2 (09:26→20:46)
[2017-03-24] MEDS: MULTIVITAMINS/MINERALS TAB GTB (09:26)
[2017-03-24] MEDS: SPIRONOLACTONE 25 MG TAB GTB (09:27)
[2017-03-24] MEDS: LEVETIRACETAM (100 MG/ML) 5ML CUP GTB ×2 (09:27→20:46)
[2017-03-24] MEDS: LISINOPRIL 20 MG TAB GTB ×2 (09:27→20:50)
[2017-03-24] MEDS: POLYETHYLENE GLYCOL 17 GM PACKET GTB (09:27)
[2017-03-24] MEDS: POTASSIUM CHLORIDE 20 MEQ POWDER FOR ORAL SOLN GTB (09:27)
[2017-03-24] MEDS: FERROUS SULFATE 60 MG/ML 5ML CUP GTB (09:27)
[2017-03-24] MEDS: AMIODARONE 200 MG TAB GTB ×2 (09:28→20:50)
[2017-03-24] MEDS: DIGOXIN 0.125 MG TAB GTB (14:03)
[2017-03-24] MEDS: ATORVASTATIN 40 MG TAB GTB (20:46)
[2017-03-24] MEDS: INSULIN GLARGINE [LANtus] 3 ML PEN SC (20:52)
[2017-03-25] MEDS: VANCOMYCIN 1.75 GM in D5W 500 ML IVPB (01:09)
[2017-03-25] MEDS: ALBUTEROL/IPRATROPIUM (NEB) 3 ML AMP NEB ×4 (01:50→19:44)
[2017-03-25] MEDS: hydrALAzine 20 MG INJ IV (01:59)
[2017-03-25] MEDS: FLUDROCORTISONE 0.1 MG TAB GTB ×3 (05:45→21:47)
[2017-03-25] MEDS: INSULIN ASPART [NOVOLOG] 3 ML PEN SC ×4 (06:00→17:40)
[2017-03-25 07:56] LABS: ADD MAN DIFF? NO
[2017-03-25 08:03] LABS: WHITE BLOOD COUNT 10.1 10^3/ul (4.8-10.8)
[2017-03-25 08:03] LABS: BASOPHIL # 0.1 10^3/ul (0.0-0.1); BASOPHILS % 0.5 % (0.0-2.0); EOSINOPHILS # 0.4 10^3/ul (0.0-0.5); EOSINOPHILS % 4.3 % (0.0-7.0); HEMATOCRIT 34.6 % (37.0-47.0); HEMOGLOBIN 10.8 g/dl (12.0-16.0); LYMPHOCYTES # 1.6 10^3/ul (0.8-2.9); LYMPHOCYTES % 15.8 % (15.0-51.0); MEAN CORPUSCULAR HEMOGLOBIN 25.3 pg (29.0-33.0); MEAN CORPUSCULAR HGB CONC 31.2 g/dl (32.0-37.0); MEAN PLATELET VOLUME 8.5 fl (7.4-10.4); MONOCYTE # 0.9 10^3/ul (0.3-0.9); MONOCYTES % 9.1 % (0.0-11.0); NEUTROPHILS % 69.6 % (39.0-77.0); PLATELET COUNT 247 10^3/UL (140-415); RED BLOOD COUNT 4.27 10^6/ul (4.20-5.40); RED CELL DISTRIBUTION WIDTH 17.2 % (11.5-14.5)
[2017-03-25] MEDS: MEROPENEM 1 GM/50ML(PMX) 50 ML IVPB ×2 (08:20→21:47)
[2017-03-25] MEDS: LEVETIRACETAM (100 MG/ML) 5ML CUP GTB ×2 (08:20→21:46)
[2017-03-25] MEDS: FERROUS SULFATE 60 MG/ML 5ML CUP GTB (08:20)
[2017-03-25] MEDS: FAMOTIDINE 20 MG TAB GTB (08:21)
[2017-03-25] MEDS: POTASSIUM CHLORIDE 20 MEQ POWDER FOR ORAL SOLN GTB (08:21)
[2017-03-25] MEDS: MULTIVITAMINS/MINERALS TAB GTB (08:21)
[2017-03-25] MEDS: METOPROLOL 100 MG TAB GTB ×2 (08:22→21:47)
[2017-03-25] MEDS: SPIRONOLACTONE 25 MG TAB GTB (08:23)
[2017-03-25] MEDS: AMIODARONE 200 MG TAB GTB ×2 (08:23→21:46)
[2017-03-25] MEDS: LISINOPRIL 20 MG TAB GTB ×2 (08:23→21:46)
[2017-03-25] MEDS: POLYETHYLENE GLYCOL 17 GM PACKET GTB (08:24)
[2017-03-25 08:25] LABS: ANION GAP 10 (8-16); BLOOD UREA NITROGEN 18 mg/dl (7-20); CARBON DIOXIDE 32 mmol/L (21-31); CHLORIDE 104 mmol/L (97-110); CREATININE 0.51 mg/dl (0.44-1.00); GLUCOSE 158 mg/dl (70-220); POTASSIUM 3.8 mmol/L (3.5-5.1); SODIUM 142 mmol/L (135-144)
[2017-03-25] MEDS: DIGOXIN 0.125 MG TAB GTB (12:34)
[2017-03-25] MEDS: ATORVASTATIN 40 MG TAB GTB (21:45)
[2017-03-25] MEDS: INSULIN GLARGINE [LANtus] 3 ML PEN SC (22:05)
[2017-03-25 23:45] LABS: VANCOMYCIN,TROUGH 18.5 ug/ml (10.0-20.0)
[2017-03-26] MEDS: VANCOMYCIN 1.75 GM in D5W 500 ML IVPB ×2 (01:05→23:54)
[2017-03-26 01:18] LABS: TROPONIN-I < 0.012 ng/ml (0.00-0.12)
[2017-03-26] MEDS: ALBUTEROL/IPRATROPIUM (NEB) 3 ML AMP NEB ×4 (01:31→19:37)
[2017-03-26] MEDS: FLUDROCORTISONE 0.1 MG TAB GTB ×3 (05:42→21:01)
[2017-03-26] MEDS: INSULIN ASPART [NOVOLOG] 3 ML PEN SC ×5 (05:50→23:54)
[2017-03-26 06:24] LABS: ADD MAN DIFF? NO
[2017-03-26 06:28] LABS: BASOPHILS % 0.4 % (0.0-2.0); EOSINOPHILS # 0.2 10^3/ul (0.0-0.5); EOSINOPHILS % 2.3 % (0.0-7.0); HEMOGLOBIN 9.7 g/dl (12.0-16.0); LYMPHOCYTES # 1.3 10^3/ul (0.8-2.9); LYMPHOCYTES % 16.1 % (15.0-51.0); MEAN CORPUSCULAR HEMOGLOBIN 25.9 pg (29.0-33.0); MEAN CORPUSCULAR HGB CONC 31.3 g/dl (32.0-37.0); MEAN CORPUSCULAR VOLUME 82.7 fl (82.0-101.0); MEAN PLATELET VOLUME 8.7 fl (7.4-10.4); MONOCYTE # 0.8 10^3/ul (0.3-0.9); MONOCYTES % 10.5 % (0.0-11.0); NEUTROPHIL # 5.6 10^3/ul (1.6-7.5); NEUTROPHILS % 69.9 % (39.0-77.0); PLATELET COUNT 191 10^3/UL (140-415); RED BLOOD COUNT 3.75 10^6/ul (4.20-5.40); RED CELL DISTRIBUTION WIDTH 17.4 % (11.5-14.5)
[2017-03-26 06:55] LABS: CHOL/HDL RATIO 2.4 RATIO; HDL CHOLESTEROL 34 mg/dl (33-92); LDL CHOLESTEROL,CALCULATED 30 mg/dl; TRIGLYCERIDES 90 mg/dl (0-149)
[2017-03-26 06:55] LABS: CHOLESTEROL 82 mg/dl (100-200)
[2017-03-26 07:28] LABS: ANION GAP 7 (8-16); BLOOD UREA NITROGEN 19 mg/dl (7-20); CALCIUM 8.6 mg/dl (8.4-10.2); CARBON DIOXIDE 34 mmol/L (21-31); CHLORIDE 104 mmol/L (97-110); CREATININE 0.61 mg/dl (0.44-1.00); GLUCOSE 165 mg/dl (70-220); SODIUM 141 mmol/L (135-144)
[2017-03-26 07:36] LABS: TROPONIN-I < 0.012 ng/ml (0.00-0.12)
[2017-03-26] MEDS: FERROUS SULFATE 60 MG/ML 5ML CUP GTB (09:43)
[2017-03-26] MEDS: POTASSIUM CHLORIDE 20 MEQ POWDER FOR ORAL SOLN GTB (09:44)
[2017-03-26] MEDS: LEVETIRACETAM (100 MG/ML) 5ML CUP GTB ×2 (09:46→20:59)
[2017-03-26] MEDS: AMIODARONE 200 MG TAB GTB ×2 (09:46→21:00)
[2017-03-26] MEDS: POLYETHYLENE GLYCOL 17 GM PACKET GTB (09:47)
[2017-03-26] MEDS: MULTIVITAMINS/MINERALS TAB GTB (09:47)
[2017-03-26] MEDS: METOPROLOL 100 MG TAB GTB ×2 (09:47→21:01)
[2017-03-26] MEDS: FAMOTIDINE 20 MG TAB GTB (09:47)
[2017-03-26] MEDS: LISINOPRIL 20 MG TAB GTB ×2 (09:48→21:01)
[2017-03-26] MEDS: SPIRONOLACTONE 25 MG TAB GTB (09:52)
[2017-03-26] MEDS: MEROPENEM 1 GM/50ML(PMX) 50 ML IVPB ×2 (09:57→21:05)
[2017-03-26] MEDS: BARIUM SULFATE 135 ML (E-Z HD) PO (11:15)
[2017-03-26] MEDS: DIGOXIN 0.125 MG TAB GTB (13:20)
[2017-03-26] MEDS: ATORVASTATIN 40 MG TAB GTB (21:01)
[2017-03-26] MEDS: INSULIN GLARGINE [LANtus] 3 ML PEN SC (22:03)
[2017-03-27] MEDS: ALBUTEROL/IPRATROPIUM (NEB) 3 ML AMP NEB ×4 (01:44→19:18)
[2017-03-27] MEDS: INSULIN ASPART [NOVOLOG] 3 ML PEN SC ×4 (06:00→23:38)
[2017-03-27] MEDS: FLUDROCORTISONE 0.1 MG TAB GTB ×3 (06:10→21:23)
[2017-03-27] MEDS: SPIRONOLACTONE 25 MG TAB GTB (09:13)
[2017-03-27] MEDS: FERROUS SULFATE 60 MG/ML 5ML CUP GTB (09:14)
[2017-03-27] MEDS: AMIODARONE 200 MG TAB GTB ×2 (09:14→21:23)
[2017-03-27] MEDS: METOPROLOL 100 MG TAB GTB ×2 (09:15→21:22)
[2017-03-27] MEDS: LEVETIRACETAM (100 MG/ML) 5ML CUP GTB ×2 (09:15→21:22)
[2017-03-27] MEDS: POTASSIUM CHLORIDE 20 MEQ POWDER FOR ORAL SOLN GTB (09:16)
[2017-03-27] MEDS: MULTIVITAMINS/MINERALS TAB GTB (09:16)
[2017-03-27] MEDS: FAMOTIDINE 20 MG TAB GTB (09:16)
[2017-03-27] MEDS: LISINOPRIL 20 MG TAB GTB ×2 (09:17→21:23)
[2017-03-27] MEDS: POLYETHYLENE GLYCOL 17 GM PACKET GTB (09:17)
[2017-03-27] MEDS: MEROPENEM 1 GM/50ML(PMX) 50 ML IVPB ×2 (09:45→21:22)
[2017-03-27] MEDS: DIGOXIN 0.125 MG TAB GTB (13:19)
[2017-03-27] MEDS: INSULIN GLARGINE [LANtus] 3 ML PEN SC (20:32)
[2017-03-27] MEDS: ATORVASTATIN 40 MG TAB GTB (21:23)
[2017-03-27] MEDS: VANCOMYCIN 1.75 GM in D5W 500 ML IVPB (23:38)
[2017-03-28] MEDS: ALBUTEROL/IPRATROPIUM (NEB) 3 ML AMP NEB ×4 (01:02→21:57)
[2017-03-28] MEDS: FLUDROCORTISONE 0.1 MG TAB GTB ×3 (05:24→21:46)
[2017-03-28] MEDS: INSULIN ASPART [NOVOLOG] 3 ML PEN SC ×3 (05:44→18:00)
[2017-03-28 08:20] LABS: ADD MAN DIFF? NO
[2017-03-28 08:26] LABS: BASOPHIL # 0.1 10^3/ul (0.0-0.1); BASOPHILS % 0.6 % (0.0-2.0); EOSINOPHILS # 0.3 10^3/ul (0.0-0.5); HEMATOCRIT 34.4 % (37.0-47.0); HEMOGLOBIN 10.6 g/dl (12.0-16.0); LYMPHOCYTES # 1.6 10^3/ul (0.8-2.9); MEAN CORPUSCULAR HEMOGLOBIN 25.2 pg (29.0-33.0); MEAN CORPUSCULAR HGB CONC 30.8 g/dl (32.0-37.0); MEAN CORPUSCULAR VOLUME 81.9 fl (82.0-101.0); MEAN PLATELET VOLUME 8.8 fl (7.4-10.4); MONOCYTE # 0.9 10^3/ul (0.3-0.9); MONOCYTES % 9.3 % (0.0-11.0); NEUTROPHIL # 6.5 10^3/ul (1.6-7.5); NEUTROPHILS % 69.7 % (39.0-77.0); PLATELET COUNT 234 10^3/UL (140-415); RED CELL DISTRIBUTION WIDTH 16.1 % (11.5-14.5)
[2017-03-28 08:26] LABS: WHITE BLOOD COUNT 9.3 10^3/ul (4.8-10.8)
[2017-03-28 08:49] LABS: ANION GAP 8 (8-16); BLOOD UREA NITROGEN 16 mg/dl (7-20); CALCIUM 9.3 mg/dl (8.4-10.2); CARBON DIOXIDE 36 mmol/L (21-31); CHLORIDE 102 mmol/L (97-110); CREATININE 0.56 mg/dl (0.44-1.00); GLUCOSE 109 mg/dl (70-220); POTASSIUM 3.7 mmol/L (3.5-5.1); SODIUM 142 mmol/L (135-144)
[2017-03-28] MEDS: FAMOTIDINE 20 MG TAB GTB (09:35)
[2017-03-28] MEDS: FERROUS SULFATE 60 MG/ML 5ML CUP GTB (09:36)
[2017-03-28] MEDS: AMIODARONE 200 MG TAB GTB ×2 (09:36→21:45)
[2017-03-28] MEDS: SPIRONOLACTONE 25 MG TAB GTB (09:36)
[2017-03-28] MEDS: POLYETHYLENE GLYCOL 17 GM PACKET GTB (09:37)
[2017-03-28] MEDS: MEROPENEM 1 GM/50ML(PMX) 50 ML IVPB ×2 (09:37→22:11)
[2017-03-28] MEDS: LEVETIRACETAM (100 MG/ML) 5ML CUP GTB ×2 (09:37→21:44)
[2017-03-28] MEDS: MULTIVITAMINS/MINERALS TAB GTB (09:37)
[2017-03-28] MEDS: POTASSIUM CHLORIDE 20 MEQ POWDER FOR ORAL SOLN GTB (09:37)
[2017-03-28] MEDS: METOPROLOL 100 MG TAB GTB ×2 (09:37→21:46)
[2017-03-28] MEDS: LISINOPRIL 20 MG TAB GTB ×2 (09:38→21:47)
[2017-03-28] MEDS: DIGOXIN 0.125 MG TAB GTB (12:44)
[2017-03-28] MEDS: ATORVASTATIN 40 MG TAB GTB (21:47)
[2017-03-28] MEDS: INSULIN GLARGINE [LANtus] 3 ML PEN SC (21:53)
[2017-03-29] MEDS: VANCOMYCIN 1.75 GM in D5W 500 ML IVPB (00:44)
[2017-03-29] MEDS: ALBUTEROL/IPRATROPIUM (NEB) 3 ML AMP NEB ×4 (01:42→20:09)
[2017-03-29] MEDS: FLUDROCORTISONE 0.1 MG TAB GTB ×3 (05:50→21:11)
[2017-03-29] MEDS: INSULIN ASPART [NOVOLOG] 3 ML PEN SC ×4 (05:59→18:00)
[2017-03-29 08:43] LABS: ADD MAN DIFF? NO
[2017-03-29 08:53] LABS: BASOPHIL # 0.1 10^3/ul (0.0-0.1); BASOPHILS % 0.6 % (0.0-2.0); EOSINOPHILS # 0.3 10^3/ul (0.0-0.5); EOSINOPHILS % 3.9 % (0.0-7.0); HEMATOCRIT 32.4 % (37.0-47.0); HEMOGLOBIN 10.3 g/dl (12.0-16.0); LYMPHOCYTES # 1.5 10^3/ul (0.8-2.9); LYMPHOCYTES % 17.4 % (15.0-51.0); MEAN CORPUSCULAR HGB CONC 31.8 g/dl (32.0-37.0); MEAN CORPUSCULAR VOLUME 81.8 fl (82.0-101.0); MONOCYTE # 0.8 10^3/ul (0.3-0.9); MONOCYTES % 9.3 % (0.0-11.0); NEUTROPHIL # 5.9 10^3/ul (1.6-7.5); NEUTROPHILS % 68.2 % (39.0-77.0); PLATELET COUNT 203 10^3/UL (140-415); RED BLOOD COUNT 3.96 10^6/ul (4.20-5.40); RED CELL DISTRIBUTION WIDTH 16.3 % (11.5-14.5)
[2017-03-29 08:53] LABS: WHITE BLOOD COUNT 8.6 10^3/ul (4.8-10.8)
[2017-03-29] MEDS: FERROUS SULFATE 60 MG/ML 5ML CUP GTB ×2 (09:00→12:25)
[2017-03-29 09:14] LABS: ANION GAP 8 (8-16); BLOOD UREA NITROGEN 17 mg/dl (7-20); CALCIUM 9.1 mg/dl (8.4-10.2); CARBON DIOXIDE 36 mmol/L (21-31); CHLORIDE 102 mmol/L (97-110); CREATININE 0.56 mg/dl (0.44-1.00); GLUCOSE 118 mg/dl (70-220); POTASSIUM 3.8 mmol/L (3.5-5.1); SODIUM 142 mmol/L (135-144)
[2017-03-29] MEDS: SPIRONOLACTONE 25 MG TAB GTB (09:15)
[2017-03-29] MEDS: AMIODARONE 200 MG TAB GTB ×2 (09:16→20:45)
[2017-03-29] MEDS: LEVETIRACETAM (100 MG/ML) 5ML CUP GTB ×2 (09:16→20:44)
[2017-03-29] MEDS: MEROPENEM 1 GM/50ML(PMX) 50 ML IVPB ×2 (09:17→20:44)
[2017-03-29] MEDS: FAMOTIDINE 20 MG TAB GTB (09:17)
[2017-03-29] MEDS: MULTIVITAMINS/MINERALS TAB GTB (09:17)
[2017-03-29] MEDS: POTASSIUM CHLORIDE 20 MEQ POWDER FOR ORAL SOLN GTB (09:17)
[2017-03-29] MEDS: METOPROLOL 100 MG TAB GTB ×2 (09:17→20:46)
[2017-03-29] MEDS: LISINOPRIL 20 MG TAB GTB ×2 (09:17→20:46)
[2017-03-29] MEDS: POLYETHYLENE GLYCOL 17 GM PACKET GTB (09:17)
[2017-03-29] MEDS: DIGOXIN 0.125 MG TAB GTB (12:24)
[2017-03-29] MEDS: ATORVASTATIN 40 MG TAB GTB (20:45)
[2017-03-29] MEDS: INSULIN GLARGINE [LANtus] 3 ML PEN SC (20:59)
[2017-03-30 00:18] LABS: VANCOMYCIN,TROUGH 19.2 ug/ml (10.0-20.0)
[2017-03-30] MEDS: ALBUTEROL/IPRATROPIUM (NEB) 3 ML AMP NEB ×4 (01:12→19:44)
[2017-03-30] MEDS: VANCOMYCIN 1.5 GM in SOD CHLORIDE 0.9% 250 ML IVPB (03:19)
[2017-03-30] MEDS: FLUDROCORTISONE 0.1 MG TAB GTB ×3 (05:15→22:35)
[2017-03-30] MEDS: INSULIN ASPART [NOVOLOG] 3 ML PEN SC ×5 (05:19→22:37)
[2017-03-30 08:34] LABS: ANION GAP 7 (8-16); BLOOD UREA NITROGEN 21 mg/dl (7-20); CALCIUM 8.9 mg/dl (8.4-10.2); CARBON DIOXIDE 39 mmol/L (21-31); CHLORIDE 104 mmol/L (97-110); CREATININE 0.61 mg/dl (0.44-1.00); GLUCOSE 112 mg/dl (70-220); POTASSIUM 3.8 mmol/L (3.5-5.1); SODIUM 146 mmol/L (135-144)
[2017-03-30] MEDS: AMIODARONE 200 MG TAB GTB ×2 (08:53→22:36)
[2017-03-30] MEDS: FAMOTIDINE 20 MG TAB GTB (08:53)
[2017-03-30] MEDS: FERROUS SULFATE 60 MG/ML 5ML CUP GTB (08:53)
[2017-03-30] MEDS: LEVETIRACETAM (100 MG/ML) 5ML CUP GTB ×2 (08:53→22:35)
[2017-03-30] MEDS: LISINOPRIL 20 MG TAB GTB ×2 (08:54→22:37)
[2017-03-30] MEDS: METOPROLOL 100 MG TAB GTB ×2 (08:54→22:36)
[2017-03-30] MEDS: MULTIVITAMINS/MINERALS TAB GTB (09:02)
[2017-03-30] MEDS: SPIRONOLACTONE 25 MG TAB GTB (09:02)
[2017-03-30] MEDS: POTASSIUM CHLORIDE 20 MEQ POWDER FOR ORAL SOLN GTB (09:02)
[2017-03-30] MEDS: POLYETHYLENE GLYCOL 17 GM PACKET GTB (09:02)
[2017-03-30] MEDS: MEROPENEM 1 GM/50ML(PMX) 50 ML IVPB ×2 (09:05→22:41)
[2017-03-30] MEDS: DIGOXIN 0.125 MG TAB GTB (13:27)
[2017-03-30] MEDS: ATORVASTATIN 40 MG TAB GTB (22:35)
[2017-03-30] MEDS: INSULIN GLARGINE [LANtus] 3 ML PEN SC (22:52)
[2017-03-31] MEDS: ALBUTEROL/IPRATROPIUM (NEB) 3 ML AMP NEB ×4 (01:35→19:42)
[2017-03-31] MEDS: VANCOMYCIN 1.5 GM in SOD CHLORIDE 0.9% 250 ML IVPB (04:52)
[2017-03-31] MEDS: FLUDROCORTISONE 0.1 MG TAB GTB ×3 (04:52→21:19)
[2017-03-31] MEDS: INSULIN ASPART [NOVOLOG] 3 ML PEN SC ×3 (04:54→17:56)
[2017-03-31 07:07] LABS: ADD MAN DIFF? NO
[2017-03-31 07:11] LABS: WHITE BLOOD COUNT 7.4 10^3/ul (4.8-10.8)
[2017-03-31 07:11] LABS: BASOPHIL # 0.1 10^3/ul (0.0-0.1); BASOPHILS % 0.7 % (0.0-2.0); EOSINOPHILS # 0.2 10^3/ul (0.0-0.5); HEMATOCRIT 32.1 % (37.0-47.0); HEMOGLOBIN 10.1 g/dl (12.0-16.0); LYMPHOCYTES # 1.6 10^3/ul (0.8-2.9); LYMPHOCYTES % 21.1 % (15.0-51.0); MEAN CORPUSCULAR HGB CONC 31.5 g/dl (32.0-37.0); MEAN CORPUSCULAR VOLUME 82.5 fl (82.0-101.0); MEAN PLATELET VOLUME 8.8 fl (7.4-10.4); MONOCYTE # 0.6 10^3/ul (0.3-0.9); MONOCYTES % 7.6 % (0.0-11.0); NEUTROPHILS % 67.9 % (39.0-77.0); PLATELET COUNT 191 10^3/UL (140-415); RED BLOOD COUNT 3.89 10^6/ul (4.20-5.40); RED CELL DISTRIBUTION WIDTH 16.1 % (11.5-14.5)
[2017-03-31 07:34] LABS: ANION GAP 9 (8-16); BLOOD UREA NITROGEN 23 mg/dl (7-20); CALCIUM 8.9 mg/dl (8.4-10.2); CARBON DIOXIDE 37 mmol/L (21-31); CHLORIDE 104 mmol/L (97-110); CREATININE 0.64 mg/dl (0.44-1.00); GLUCOSE 120 mg/dl (70-220); POTASSIUM 3.9 mmol/L (3.5-5.1); SODIUM 146 mmol/L (135-144)
[2017-03-31] MEDS: MEROPENEM 1 GM/50ML(PMX) 50 ML IVPB ×2 (09:03→21:53)
[2017-03-31] MEDS: LEVETIRACETAM (100 MG/ML) 5ML CUP GTB ×2 (09:09→21:19)
[2017-03-31] MEDS: FERROUS SULFATE 60 MG/ML 5ML CUP GTB (09:09)
[2017-03-31] MEDS: POLYETHYLENE GLYCOL 17 GM PACKET GTB (09:09)
[2017-03-31] MEDS: AMIODARONE 200 MG TAB GTB ×2 (09:10→21:21)
[2017-03-31] MEDS: SPIRONOLACTONE 25 MG TAB GTB (09:10)
[2017-03-31] MEDS: METOPROLOL 100 MG TAB GTB ×2 (09:10→21:20)
[2017-03-31] MEDS: POTASSIUM CHLORIDE 20 MEQ POWDER FOR ORAL SOLN GTB (09:11)
[2017-03-31] MEDS: LISINOPRIL 20 MG TAB GTB ×2 (09:11→21:20)
[2017-03-31] MEDS: FAMOTIDINE 20 MG TAB GTB (09:11)
[2017-03-31] MEDS: MULTIVITAMINS/MINERALS TAB GTB (09:11)
[2017-03-31] MEDS: DIGOXIN 0.125 MG TAB GTB (12:40)
[2017-03-31] MEDS: ATORVASTATIN 40 MG TAB GTB (21:19)
[2017-03-31] MEDS: INSULIN GLARGINE [LANtus] 3 ML PEN SC (21:33)
[2017-04-01] MEDS: ALBUTEROL/IPRATROPIUM (NEB) 3 ML AMP NEB ×4 (02:30→19:59)
[2017-04-01] MEDS: VANCOMYCIN 1.5 GM in SOD CHLORIDE 0.9% 250 ML IVPB (02:35)
[2017-04-01] MEDS: FLUDROCORTISONE 0.1 MG TAB GTB ×3 (05:39→23:07)
[2017-04-01] MEDS: INSULIN ASPART [NOVOLOG] 3 ML PEN SC ×4 (05:42→18:53)
[2017-04-01 08:15] LABS: ADD MAN DIFF? NO
[2017-04-01 08:26] LABS: WHITE BLOOD COUNT 8.3 10^3/ul (4.8-10.8)
[2017-04-01 08:26] LABS: BASOPHILS % 0.5 % (0.0-2.0); EOSINOPHILS # 0.2 10^3/ul (0.0-0.5); EOSINOPHILS % 2.4 % (0.0-7.0); HEMOGLOBIN 10.3 g/dl (12.0-16.0); LYMPHOCYTES # 1.6 10^3/ul (0.8-2.9); LYMPHOCYTES % 18.8 % (15.0-51.0); MEAN CORPUSCULAR HEMOGLOBIN 25.8 pg (29.0-33.0); MEAN CORPUSCULAR HGB CONC 31.2 g/dl (32.0-37.0); MEAN CORPUSCULAR VOLUME 82.7 fl (82.0-101.0); MONOCYTE # 0.6 10^3/ul (0.3-0.9); MONOCYTES % 7.4 % (0.0-11.0); NEUTROPHIL # 5.9 10^3/ul (1.6-7.5); NEUTROPHILS % 70.5 % (39.0-77.0); PLATELET COUNT 197 10^3/UL (140-415); RED BLOOD COUNT 3.99 10^6/ul (4.20-5.40); RED CELL DISTRIBUTION WIDTH 15.6 % (11.5-14.5)
[2017-04-01 08:46] LABS: ANION GAP 9 (8-16); BLOOD UREA NITROGEN 22 mg/dl (7-20); CALCIUM 8.9 mg/dl (8.4-10.2); CARBON DIOXIDE 35 mmol/L (21-31); CHLORIDE 105 mmol/L (97-110); CREATININE 0.56 mg/dl (0.44-1.00); GLUCOSE 143 mg/dl (70-220); POTASSIUM 3.5 mmol/L (3.5-5.1); SODIUM 145 mmol/L (135-144)
[2017-04-01] MEDS: FAMOTIDINE 20 MG TAB GTB (09:12)
[2017-04-01] MEDS: MULTIVITAMINS/MINERALS TAB GTB (09:12)
[2017-04-01] MEDS: SPIRONOLACTONE 25 MG TAB GTB (09:13)
[2017-04-01] MEDS: LISINOPRIL 20 MG TAB GTB ×2 (09:13→20:22)
[2017-04-01] MEDS: METOPROLOL 100 MG TAB GTB ×2 (09:13→20:21)
[2017-04-01] MEDS: AMIODARONE 200 MG TAB GTB (09:13)
[2017-04-01] MEDS: POTASSIUM CHLORIDE 20 MEQ POWDER FOR ORAL SOLN GTB (09:14)
[2017-04-01] MEDS: FERROUS SULFATE 60 MG/ML 5ML CUP GTB (09:14)
[2017-04-01] MEDS: POLYETHYLENE GLYCOL 17 GM PACKET GTB (09:14)
[2017-04-01] MEDS: LEVETIRACETAM (100 MG/ML) 5ML CUP GTB ×2 (09:14→20:17)
[2017-04-01] MEDS: MEROPENEM 1 GM/50ML(PMX) 50 ML IVPB ×2 (10:29→20:23)
[2017-04-01] MEDS: DIGOXIN 0.125 MG TAB GTB (13:09)
[2017-04-01] MEDS: ATORVASTATIN 40 MG TAB GTB (20:17)
[2017-04-01] MEDS: INSULIN GLARGINE [LANtus] 3 ML PEN SC (20:38)
[2017-04-02] MEDS: ALBUTEROL/IPRATROPIUM (NEB) 3 ML AMP NEB ×4 (00:57→20:17)
[2017-04-02 03:12] LABS: VANCOMYCIN,TROUGH 10.6 ug/ml (10.0-20.0)
[2017-04-02] MEDS: VANCOMYCIN 1.5 GM in SOD CHLORIDE 0.9% 250 ML IVPB (04:48)
[2017-04-02] MEDS: FLUDROCORTISONE 0.1 MG TAB GTB ×3 (05:10→21:04)
[2017-04-02] MEDS: INSULIN ASPART [NOVOLOG] 3 ML PEN SC ×4 (05:46→18:00)
[2017-04-02 06:24] LABS: ADD MAN DIFF? NO
[2017-04-02 06:33] LABS: WHITE BLOOD COUNT 8.9 10^3/ul (4.8-10.8)
[2017-04-02 06:33] LABS: BASOPHIL # 0.1 10^3/ul (0.0-0.1); BASOPHILS % 0.6 % (0.0-2.0); EOSINOPHILS # 0.2 10^3/ul (0.0-0.5); EOSINOPHILS % 2.6 % (0.0-7.0); HEMATOCRIT 32.8 % (37.0-47.0); HEMOGLOBIN 10.4 g/dl (12.0-16.0); LYMPHOCYTES # 1.7 10^3/ul (0.8-2.9); LYMPHOCYTES % 19.2 % (15.0-51.0); MEAN CORPUSCULAR HGB CONC 31.7 g/dl (32.0-37.0); MEAN PLATELET VOLUME 9.1 fl (7.4-10.4); MONOCYTE # 0.6 10^3/ul (0.3-0.9); MONOCYTES % 6.9 % (0.0-11.0); NEUTROPHIL # 6.2 10^3/ul (1.6-7.5); NEUTROPHILS % 70.1 % (39.0-77.0); PLATELET COUNT 218 10^3/UL (140-415); RED CELL DISTRIBUTION WIDTH 15.7 % (11.5-14.5)
[2017-04-02 07:15] LABS: ANION GAP 13 (8-16); BLOOD UREA NITROGEN 21 mg/dl (7-20); CALCIUM 9.2 mg/dl (8.4-10.2); CARBON DIOXIDE 36 mmol/L (21-31); CHLORIDE 103 mmol/L (97-110); GLUCOSE 127 mg/dl (70-220); POTASSIUM 3.8 mmol/L (3.5-5.1); SODIUM 148 mmol/L (135-144)
[2017-04-02] MEDS: SPIRONOLACTONE 25 MG TAB GTB (08:40)
[2017-04-02] MEDS: LEVETIRACETAM (100 MG/ML) 5ML CUP GTB ×2 (08:40→21:09)
[2017-04-02] MEDS: POTASSIUM CHLORIDE 20 MEQ POWDER FOR ORAL SOLN GTB (08:40)
[2017-04-02] MEDS: MULTIVITAMINS/MINERALS TAB GTB (08:40)
[2017-04-02] MEDS: MEROPENEM 1 GM/50ML(PMX) 50 ML IVPB ×2 (08:40→21:09)
[2017-04-02] MEDS: POLYETHYLENE GLYCOL 17 GM PACKET GTB (08:40)
[2017-04-02] MEDS: FERROUS SULFATE 60 MG/ML 5ML CUP GTB (08:40)
[2017-04-02] MEDS: LISINOPRIL 20 MG TAB GTB ×2 (08:41→21:09)
[2017-04-02] MEDS: FAMOTIDINE 20 MG TAB GTB (08:41)
[2017-04-02] MEDS: AMIODARONE 200 MG TAB GTB (08:41)
[2017-04-02] MEDS: METOPROLOL 100 MG TAB GTB ×2 (08:42→21:08)
[2017-04-02] MEDS: DIGOXIN 0.125 MG TAB GTB (14:14)
[2017-04-02] MEDS: ATORVASTATIN 40 MG TAB GTB (21:04)
[2017-04-02] MEDS: INSULIN GLARGINE [LANtus] 3 ML PEN SC (21:15)
[2017-04-03] MEDS: SOD CHLORIDE 0.9% IVPB (00:50)
[2017-04-03] MEDS: VANCOMYCIN IVPB (00:50)
[2017-04-03] MEDS: INSULIN ASPART [NOVOLOG] 3 ML PEN SC ×4 (00:53→17:51)
[2017-04-03] MEDS: ALBUTEROL/IPRATROPIUM (NEB) 3 ML AMP NEB ×4 (00:54→19:48)
[2017-04-03] MEDS: FLUDROCORTISONE 0.1 MG TAB GTB ×3 (05:33→21:52)
[2017-04-03 06:09] LABS: ADD MAN DIFF? NO
[2017-04-03 06:14] LABS: BASOPHILS % 0.5 % (0.0-2.0); EOSINOPHILS # 0.1 10^3/ul (0.0-0.5); EOSINOPHILS % 1.6 % (0.0-7.0); HEMATOCRIT 32.4 % (37.0-47.0); HEMOGLOBIN 10.3 g/dl (12.0-16.0); LYMPHOCYTES # 1.3 10^3/ul (0.8-2.9); LYMPHOCYTES % 15.9 % (15.0-51.0); MEAN CORPUSCULAR HGB CONC 31.8 g/dl (32.0-37.0); MEAN CORPUSCULAR VOLUME 81.8 fl (82.0-101.0); MEAN PLATELET VOLUME 8.6 fl (7.4-10.4); MONOCYTE # 0.6 10^3/ul (0.3-0.9); MONOCYTES % 7.4 % (0.0-11.0); NEUTROPHIL # 6.1 10^3/ul (1.6-7.5); NEUTROPHILS % 74.1 % (39.0-77.0); PLATELET COUNT 185 10^3/UL (140-415); RED BLOOD COUNT 3.96 10^6/ul (4.20-5.40); RED CELL DISTRIBUTION WIDTH 15.2 % (11.5-14.5)
[2017-04-03 06:14] LABS: WHITE BLOOD COUNT 8.2 10^3/ul (4.8-10.8)
[2017-04-03 06:42] LABS: ANION GAP 13 (8-16); BLOOD UREA NITROGEN 20 mg/dl (7-20); CALCIUM 8.9 mg/dl (8.4-10.2); CARBON DIOXIDE 35 mmol/L (21-31); CHLORIDE 105 mmol/L (97-110); CREATININE 0.55 mg/dl (0.44-1.00); GLUCOSE 142 mg/dl (70-220); POTASSIUM 3.8 mmol/L (3.5-5.1); SODIUM 149 mmol/L (135-144)
[2017-04-03] MEDS: FERROUS SULFATE 60 MG/ML 5ML CUP GTB (09:29)
[2017-04-03] MEDS: POTASSIUM CHLORIDE 20 MEQ POWDER FOR ORAL SOLN GTB (09:30)
[2017-04-03] MEDS: LEVETIRACETAM (100 MG/ML) 5ML CUP GTB ×2 (09:30→21:36)
[2017-04-03] MEDS: FAMOTIDINE 20 MG TAB GTB (09:30)
[2017-04-03] MEDS: MULTIVITAMINS/MINERALS TAB GTB (09:30)
[2017-04-03] MEDS: SPIRONOLACTONE 25 MG TAB GTB (09:30)
[2017-04-03] MEDS: POLYETHYLENE GLYCOL 17 GM PACKET GTB (09:31)
[2017-04-03] MEDS: AMIODARONE 200 MG TAB GTB (09:33)
[2017-04-03] MEDS: METOPROLOL 100 MG TAB GTB ×2 (09:34→21:44)
[2017-04-03] MEDS: LISINOPRIL 20 MG TAB GTB ×2 (09:35→21:44)
[2017-04-03] MEDS: MEROPENEM 1 GM/50ML(PMX) 50 ML IVPB ×2 (09:44→21:36)
[2017-04-03] MEDS: DIGOXIN 0.125 MG TAB GTB (13:37)
[2017-04-03] MEDS: ATORVASTATIN 40 MG TAB GTB (21:37)
[2017-04-03] MEDS: INSULIN GLARGINE [LANtus] 3 ML PEN SC (21:55)
[2017-04-04] MEDS: SOD CHLORIDE 0.9% IVPB (00:13)
[2017-04-04] MEDS: VANCOMYCIN IVPB (00:13)
[2017-04-04] MEDS: ALBUTEROL/IPRATROPIUM (NEB) 3 ML AMP NEB ×4 (01:00→22:45)
[2017-04-04] MEDS: FLUDROCORTISONE 0.1 MG TAB GTB ×3 (05:08→21:35)
[2017-04-04] MEDS: INSULIN ASPART [NOVOLOG] 3 ML PEN SC ×4 (05:11→18:00)
[2017-04-04 05:39] LABS: ADD MAN DIFF? NO
[2017-04-04 05:49] LABS: BASOPHILS % 0.4 % (0.0-2.0); EOSINOPHILS # 0.2 10^3/ul (0.0-0.5); EOSINOPHILS % 3.4 % (0.0-7.0); HEMATOCRIT 31.5 % (37.0-47.0); LYMPHOCYTES # 1.4 10^3/ul (0.8-2.9); LYMPHOCYTES % 19.1 % (15.0-51.0); MEAN CORPUSCULAR HEMOGLOBIN 26.1 pg (29.0-33.0); MEAN CORPUSCULAR HGB CONC 31.7 g/dl (32.0-37.0); MEAN CORPUSCULAR VOLUME 82.2 fl (82.0-101.0); MEAN PLATELET VOLUME 8.9 fl (7.4-10.4); MONOCYTE # 0.5 10^3/ul (0.3-0.9); MONOCYTES % 7.5 % (0.0-11.0); NEUTROPHIL # 4.9 10^3/ul (1.6-7.5); NEUTROPHILS % 69.3 % (39.0-77.0); PLATELET COUNT 195 10^3/UL (140-415); RED BLOOD COUNT 3.83 10^6/ul (4.20-5.40); RED CELL DISTRIBUTION WIDTH 15.5 % (11.5-14.5)
[2017-04-04 05:49] LABS: WHITE BLOOD COUNT 7.1 10^3/ul (4.8-10.8)
[2017-04-04 06:33] LABS: ANION GAP 8 (8-16); BLOOD UREA NITROGEN 20 mg/dl (7-20); CALCIUM 8.8 mg/dl (8.4-10.2); CARBON DIOXIDE 37 mmol/L (21-31); CHLORIDE 105 mmol/L (97-110); CREATININE 0.52 mg/dl (0.44-1.00); GLUCOSE 132 mg/dl (70-220); POTASSIUM 3.8 mmol/L (3.5-5.1); SODIUM 146 mmol/L (135-144)
[2017-04-04] MEDS: FERROUS SULFATE 60 MG/ML 5ML CUP GTB (09:12)
[2017-04-04] MEDS: LEVETIRACETAM (100 MG/ML) 5ML CUP GTB ×2 (09:12→20:09)
[2017-04-04] MEDS: AMIODARONE 200 MG TAB GTB (09:13)
[2017-04-04] MEDS: MULTIVITAMINS/MINERALS TAB GTB (09:13)
[2017-04-04] MEDS: MEROPENEM 1 GM/50ML(PMX) 50 ML IVPB ×2 (09:13→20:22)
[2017-04-04] MEDS: POLYETHYLENE GLYCOL 17 GM PACKET GTB (09:13)
[2017-04-04] MEDS: POTASSIUM CHLORIDE 20 MEQ POWDER FOR ORAL SOLN GTB (09:13)
[2017-04-04] MEDS: FAMOTIDINE 20 MG TAB GTB (09:13)
[2017-04-04] MEDS: METOPROLOL 100 MG TAB GTB ×2 (09:14→20:10)
[2017-04-04] MEDS: SPIRONOLACTONE 25 MG TAB GTB (09:14)
[2017-04-04] MEDS: LISINOPRIL 20 MG TAB GTB ×2 (09:18→20:11)
[2017-04-04] MEDS: DIGOXIN 0.125 MG TAB GTB (12:11)
[2017-04-04] MEDS: ATORVASTATIN 40 MG TAB GTB (20:09)
[2017-04-04] MEDS: INSULIN GLARGINE [LANtus] 3 ML PEN SC (20:21)
[2017-04-05] MEDS: SOD CHLORIDE 0.9% IVPB (00:08)
[2017-04-05] MEDS: VANCOMYCIN IVPB (00:08)
[2017-04-05] MEDS: ALBUTEROL/IPRATROPIUM (NEB) 3 ML AMP NEB ×4 (02:19→19:56)
[2017-04-05] MEDS: FLUDROCORTISONE 0.1 MG TAB GTB ×3 (05:07→21:10)
[2017-04-05] MEDS: INSULIN ASPART [NOVOLOG] 3 ML PEN SC ×4 (05:09→17:42)
[2017-04-05] MEDS: LEVETIRACETAM (100 MG/ML) 5ML CUP GTB ×2 (09:15→20:14)
[2017-04-05] MEDS: MEROPENEM 1 GM/50ML(PMX) 50 ML IVPB ×2 (09:15→20:14)
[2017-04-05] MEDS: FERROUS SULFATE 60 MG/ML 5ML CUP GTB (09:15)
[2017-04-05] MEDS: MULTIVITAMINS/MINERALS TAB GTB (09:16)
[2017-04-05] MEDS: POLYETHYLENE GLYCOL 17 GM PACKET GTB (09:16)
[2017-04-05] MEDS: FAMOTIDINE 20 MG TAB GTB (09:16)
[2017-04-05] MEDS: POTASSIUM CHLORIDE 20 MEQ POWDER FOR ORAL SOLN GTB (09:16)
[2017-04-05] MEDS: METOPROLOL 100 MG TAB GTB ×2 (09:17→20:15)
[2017-04-05] MEDS: SPIRONOLACTONE 25 MG TAB GTB (09:18)
[2017-04-05] MEDS: AMIODARONE 200 MG TAB GTB (09:18)
[2017-04-05] MEDS: LISINOPRIL 20 MG TAB GTB ×2 (09:19→20:15)
[2017-04-05] MEDS: DIGOXIN 0.125 MG TAB GTB (12:58)
[2017-04-05] MEDS: ATORVASTATIN 40 MG TAB GTB (20:14)
[2017-04-05] MEDS: INSULIN GLARGINE [LANtus] 3 ML PEN SC (20:26)
[2017-04-06] MEDS: SOD CHLORIDE 0.9% IVPB (00:39)
[2017-04-06] MEDS: VANCOMYCIN IVPB (00:39)
[2017-04-06] MEDS: INSULIN ASPART [NOVOLOG] 3 ML PEN SC ×4 (00:44→17:48)
[2017-04-06] MEDS: ALBUTEROL/IPRATROPIUM (NEB) 3 ML AMP NEB ×4 (03:14→19:25)
[2017-04-06] MEDS: FLUDROCORTISONE 0.1 MG TAB GTB ×3 (05:37→21:54)
[2017-04-06 05:59] LABS: ADD MAN DIFF? NO
[2017-04-06 06:02] LABS: BASOPHILS % 0.6 % (0.0-2.0); EOSINOPHILS # 0.2 10^3/ul (0.0-0.5); EOSINOPHILS % 2.9 % (0.0-7.0); HEMATOCRIT 33.6 % (37.0-47.0); HEMOGLOBIN 10.7 g/dl (12.0-16.0); LYMPHOCYTES # 1.2 10^3/ul (0.8-2.9); LYMPHOCYTES % 18.3 % (15.0-51.0); MEAN CORPUSCULAR HEMOGLOBIN 26.3 pg (29.0-33.0); MEAN CORPUSCULAR HGB CONC 31.8 g/dl (32.0-37.0); MEAN CORPUSCULAR VOLUME 82.6 fl (82.0-101.0); MEAN PLATELET VOLUME 8.7 fl (7.4-10.4); MONOCYTE # 0.7 10^3/ul (0.3-0.9); MONOCYTES % 10.3 % (0.0-11.0); NEUTROPHIL # 4.5 10^3/ul (1.6-7.5); NEUTROPHILS % 67.4 % (39.0-77.0); PLATELET COUNT 190 10^3/UL (140-415); RED BLOOD COUNT 4.07 10^6/ul (4.20-5.40); RED CELL DISTRIBUTION WIDTH 15.2 % (11.5-14.5)
[2017-04-06 06:02] LABS: WHITE BLOOD COUNT 6.6 10^3/ul (4.8-10.8)
[2017-04-06 06:33] LABS: ANION GAP 11 (8-16); BLOOD UREA NITROGEN 21 mg/dl (7-20); CARBON DIOXIDE 35 mmol/L (21-31); CHLORIDE 105 mmol/L (97-110); CREATININE 0.57 mg/dl (0.44-1.00); GLUCOSE 118 mg/dl (70-220); POTASSIUM 3.7 mmol/L (3.5-5.1); SODIUM 147 mmol/L (135-144)
[2017-04-06] MEDS: POTASSIUM CHLORIDE 20 MEQ POWDER FOR ORAL SOLN GTB (08:24)
[2017-04-06] MEDS: MULTIVITAMINS/MINERALS TAB GTB (08:25)
[2017-04-06] MEDS: METOPROLOL 100 MG TAB GTB ×2 (08:25→21:55)
[2017-04-06] MEDS: SPIRONOLACTONE 25 MG TAB GTB (08:25)
[2017-04-06] MEDS: LEVETIRACETAM (100 MG/ML) 5ML CUP GTB ×2 (08:25→21:54)
[2017-04-06] MEDS: FAMOTIDINE 20 MG TAB GTB (08:26)
[2017-04-06] MEDS: POLYETHYLENE GLYCOL 17 GM PACKET GTB (08:26)
[2017-04-06] MEDS: LISINOPRIL 20 MG TAB GTB ×2 (08:26→21:55)
[2017-04-06] MEDS: AMIODARONE 200 MG TAB GTB (08:26)
[2017-04-06] MEDS: FERROUS SULFATE 60 MG/ML 5ML CUP GTB (08:29)
[2017-04-06] MEDS: MEROPENEM 1 GM/50ML(PMX) 50 ML IVPB ×2 (08:29→22:37)
[2017-04-06] MEDS: DIGOXIN 0.125 MG TAB GTB (12:06)
[2017-04-06] MEDS: ATORVASTATIN 40 MG TAB GTB (21:54)
[2017-04-06] MEDS: INSULIN GLARGINE [LANtus] 3 ML PEN SC (22:45)
[2017-04-07] MEDS: VANCOMYCIN IVPB (00:50)
[2017-04-07] MEDS: SOD CHLORIDE 0.9% IVPB (00:50)
[2017-04-07] MEDS: ALBUTEROL/IPRATROPIUM (NEB) 3 ML AMP NEB ×4 (01:00→19:27)
[2017-04-07] MEDS: INSULIN ASPART [NOVOLOG] 3 ML PEN SC ×4 (05:27→18:13)
[2017-04-07] MEDS: FLUDROCORTISONE 0.1 MG TAB GTB ×3 (05:28→21:46)
[2017-04-07] MEDS: POLYETHYLENE GLYCOL 17 GM PACKET GTB (09:17)
[2017-04-07] MEDS: MEROPENEM 1 GM/50ML(PMX) 50 ML IVPB ×2 (09:17→21:48)
[2017-04-07] MEDS: FERROUS SULFATE 60 MG/ML 5ML CUP GTB (09:18)
[2017-04-07] MEDS: FAMOTIDINE 20 MG TAB GTB (09:18)
[2017-04-07] MEDS: POTASSIUM CHLORIDE 20 MEQ POWDER FOR ORAL SOLN GTB (09:18)
[2017-04-07] MEDS: LEVETIRACETAM (100 MG/ML) 5ML CUP GTB ×2 (09:18→21:47)
[2017-04-07] MEDS: MULTIVITAMINS/MINERALS TAB GTB (09:18)
[2017-04-07] MEDS: SPIRONOLACTONE 25 MG TAB GTB (09:18)
[2017-04-07] MEDS: AMIODARONE 200 MG TAB GTB (09:19)
[2017-04-07] MEDS: LISINOPRIL 20 MG TAB GTB ×2 (09:19→21:47)
[2017-04-07] MEDS: METOPROLOL 100 MG TAB GTB ×2 (09:20→21:47)
[2017-04-07] MEDS: DIGOXIN 0.125 MG TAB GTB (12:44)
[2017-04-07] MEDS: ATORVASTATIN 40 MG TAB GTB (21:47)
[2017-04-07] MEDS: INSULIN GLARGINE [LANtus] 3 ML PEN SC (22:09)
[2017-04-08] MEDS: SOD CHLORIDE 0.9% IVPB ×2 (00:49→23:29)
[2017-04-08] MEDS: VANCOMYCIN IVPB ×2 (00:49→23:29)
[2017-04-08] MEDS: INSULIN ASPART [NOVOLOG] 3 ML PEN SC ×5 (00:55→23:38)
[2017-04-08] MEDS: ALBUTEROL/IPRATROPIUM (NEB) 3 ML AMP NEB ×4 (01:12→19:38)
[2017-04-08] MEDS: FLUDROCORTISONE 0.1 MG TAB GTB ×3 (05:18→22:30)
[2017-04-08 07:44] LABS: ADD MAN DIFF? NO
[2017-04-08 07:50] LABS: BASOPHIL # 0.1 10^3/ul (0.0-0.1); BASOPHILS % 0.9 % (0.0-2.0); EOSINOPHILS # 0.2 10^3/ul (0.0-0.5); EOSINOPHILS % 3.5 % (0.0-7.0); HEMATOCRIT 35.8 % (37.0-47.0); HEMOGLOBIN 11.2 g/dl (12.0-16.0); LYMPHOCYTES # 1.5 10^3/ul (0.8-2.9); MEAN CORPUSCULAR HEMOGLOBIN 25.9 pg (29.0-33.0); MEAN CORPUSCULAR HGB CONC 31.3 g/dl (32.0-37.0); MEAN CORPUSCULAR VOLUME 82.7 fl (82.0-101.0); MEAN PLATELET VOLUME 8.7 fl (7.4-10.4); MONOCYTE # 0.6 10^3/ul (0.3-0.9); NEUTROPHIL # 3.3 10^3/ul (1.6-7.5); NEUTROPHILS % 58.1 % (39.0-77.0); PLATELET COUNT 224 10^3/UL (140-415); RED BLOOD COUNT 4.33 10^6/ul (4.20-5.40); RED CELL DISTRIBUTION WIDTH 15.1 % (11.5-14.5)
[2017-04-08 07:50] LABS: WHITE BLOOD COUNT 5.7 10^3/ul (4.8-10.8)
[2017-04-08 08:10] LABS: ANION GAP 12 (8-16); BLOOD UREA NITROGEN 26 mg/dl (7-20); CALCIUM 9.4 mg/dl (8.4-10.2); CARBON DIOXIDE 36 mmol/L (21-31); CHLORIDE 105 mmol/L (97-110); CREATININE 0.58 mg/dl (0.44-1.00); GLUCOSE 128 mg/dl (70-220); POTASSIUM 3.8 mmol/L (3.5-5.1); SODIUM 149 mmol/L (135-144)
[2017-04-08] MEDS: POTASSIUM CHLORIDE 20 MEQ POWDER FOR ORAL SOLN GTB (08:54)
[2017-04-08] MEDS: FERROUS SULFATE 60 MG/ML 5ML CUP GTB (08:54)
[2017-04-08] MEDS: LEVETIRACETAM (100 MG/ML) 5ML CUP GTB ×2 (08:54→20:44)
[2017-04-08] MEDS: FAMOTIDINE 20 MG TAB GTB (08:54)
[2017-04-08] MEDS: POLYETHYLENE GLYCOL 17 GM PACKET GTB (08:54)
[2017-04-08] MEDS: METOPROLOL 100 MG TAB GTB ×2 (08:55→20:46)
[2017-04-08] MEDS: MULTIVITAMINS/MINERALS TAB GTB (08:55)
[2017-04-08] MEDS: LISINOPRIL 20 MG TAB GTB ×2 (08:55→20:46)
[2017-04-08] MEDS: SPIRONOLACTONE 25 MG TAB GTB (08:55)
[2017-04-08] MEDS: AMIODARONE 200 MG TAB GTB (08:56)
[2017-04-08] MEDS: MEROPENEM 1 GM/50ML(PMX) 50 ML IVPB ×2 (09:10→21:01)
[2017-04-08] MEDS: DIGOXIN 0.125 MG TAB GTB (12:10)
[2017-04-08] MEDS: ATORVASTATIN 40 MG TAB GTB (20:45)
[2017-04-08] MEDS: INSULIN GLARGINE [LANtus] 3 ML PEN SC (20:56)
[2017-04-09] MEDS: ALBUTEROL/IPRATROPIUM (NEB) 3 ML AMP NEB ×4 (00:56→20:17)
[2017-04-09] MEDS: INSULIN ASPART [NOVOLOG] 3 ML PEN SC ×5 (05:37→23:19)
[2017-04-09] MEDS: FLUDROCORTISONE 0.1 MG TAB GTB ×3 (06:01→21:50)
[2017-04-09 06:58] LABS: ANION GAP 11 (8-16); BLOOD UREA NITROGEN 21 mg/dl (7-20); CARBON DIOXIDE 35 mmol/L (21-31); CHLORIDE 105 mmol/L (97-110); CREATININE 0.54 mg/dl (0.44-1.00); GLUCOSE 132 mg/dl (70-220); POTASSIUM 3.5 mmol/L (3.5-5.1); SODIUM 147 mmol/L (135-144)
[2017-04-09] MEDS: FERROUS SULFATE 60 MG/ML 5ML CUP GTB (08:58)
[2017-04-09] MEDS: SPIRONOLACTONE 25 MG TAB GTB (08:58)
[2017-04-09] MEDS: LEVETIRACETAM (100 MG/ML) 5ML CUP GTB ×2 (08:58→21:50)
[2017-04-09] MEDS: FAMOTIDINE 20 MG TAB GTB (08:58)
[2017-04-09] MEDS: POLYETHYLENE GLYCOL 17 GM PACKET GTB ×2 (08:58→09:00)
[2017-04-09] MEDS: MEROPENEM 1 GM/50ML(PMX) 50 ML IVPB ×2 (08:58→21:50)
[2017-04-09] MEDS: MULTIVITAMINS/MINERALS TAB GTB (08:58)
[2017-04-09] MEDS: LISINOPRIL 20 MG TAB GTB ×2 (08:59→21:00)
[2017-04-09] MEDS: METOPROLOL 100 MG TAB GTB ×2 (08:59→21:00)
[2017-04-09] MEDS: AMIODARONE 200 MG TAB GTB (08:59)
[2017-04-09] MEDS: POTASSIUM CHLORIDE 20 MEQ POWDER FOR ORAL SOLN GTB (08:59)
[2017-04-09] MEDS: DIGOXIN 0.125 MG TAB GTB (13:44)
[2017-04-09] MEDS: ATORVASTATIN 40 MG TAB GTB (21:50)
[2017-04-09] MEDS: INSULIN GLARGINE [LANtus] 3 ML PEN SC (22:01)
[2017-04-10] MEDS: SOD CHLORIDE 0.9% IVPB ×2 (00:44→23:43)
[2017-04-10] MEDS: VANCOMYCIN IVPB ×2 (00:44→23:43)
[2017-04-10] MEDS: ALBUTEROL/IPRATROPIUM (NEB) 3 ML AMP NEB ×4 (01:39→19:27)
[2017-04-10] MEDS: INSULIN ASPART [NOVOLOG] 3 ML PEN SC ×4 (05:58→23:49)
[2017-04-10] MEDS: FLUDROCORTISONE 0.1 MG TAB GTB ×3 (06:00→21:30)
[2017-04-10 07:09] LABS: ANION GAP 10 (8-16); BLOOD UREA NITROGEN 22 mg/dl (7-20); CALCIUM 8.6 mg/dl (8.4-10.2); CARBON DIOXIDE 36 mmol/L (21-31); CHLORIDE 106 mmol/L (97-110); CREATININE 0.57 mg/dl (0.44-1.00); GLUCOSE 141 mg/dl (70-220); POTASSIUM 3.6 mmol/L (3.5-5.1); SODIUM 148 mmol/L (135-144)
[2017-04-10] MEDS: LEVETIRACETAM (100 MG/ML) 5ML CUP GTB ×2 (10:03→20:41)
[2017-04-10] MEDS: POLYETHYLENE GLYCOL 17 GM PACKET GTB (10:03)
[2017-04-10] MEDS: FERROUS SULFATE 60 MG/ML 5ML CUP GTB (10:03)
[2017-04-10] MEDS: MULTIVITAMINS/MINERALS TAB GTB (10:04)
[2017-04-10] MEDS: MEROPENEM 1 GM/50ML(PMX) 50 ML IVPB ×2 (10:04→20:41)
[2017-04-10] MEDS: SPIRONOLACTONE 25 MG TAB GTB (10:04)
[2017-04-10] MEDS: POTASSIUM CHLORIDE 20 MEQ POWDER FOR ORAL SOLN GTB (10:04)
[2017-04-10] MEDS: FAMOTIDINE 20 MG TAB GTB (10:04)
[2017-04-10] MEDS: METOPROLOL 100 MG TAB GTB ×2 (10:07→20:42)
[2017-04-10] MEDS: LISINOPRIL 20 MG TAB GTB ×2 (10:08→20:42)
[2017-04-10] MEDS: AMIODARONE 200 MG TAB GTB (10:08)
[2017-04-10] MEDS: DIGOXIN 0.125 MG TAB GTB (14:14)
[2017-04-10] MEDS: ATORVASTATIN 40 MG TAB GTB (20:41)
[2017-04-10] MEDS: INSULIN GLARGINE [LANtus] 3 ML PEN SC (21:16)
[2017-04-11] MEDS: ALBUTEROL/IPRATROPIUM (NEB) 3 ML AMP NEB ×4 (01:32→19:44)
[2017-04-11] MEDS: FLUDROCORTISONE 0.1 MG TAB GTB ×3 (05:30→22:07)
[2017-04-11] MEDS: INSULIN ASPART [NOVOLOG] 3 ML PEN SC ×4 (05:30→23:50)
[2017-04-11 06:37] LABS: ANION GAP 11 (8-16); BLOOD UREA NITROGEN 21 mg/dl (7-20); CALCIUM 9.1 mg/dl (8.4-10.2); CARBON DIOXIDE 35 mmol/L (21-31); CHLORIDE 105 mmol/L (97-110); CREATININE 0.58 mg/dl (0.44-1.00); GLUCOSE 122 mg/dl (70-220); POTASSIUM 3.7 mmol/L (3.5-5.1); SODIUM 147 mmol/L (135-144)
[2017-04-11] MEDS: MULTIVITAMINS/MINERALS TAB GTB (09:29)
[2017-04-11] MEDS: POLYETHYLENE GLYCOL 17 GM PACKET GTB (09:29)
[2017-04-11] MEDS: FERROUS SULFATE 60 MG/ML 5ML CUP GTB (09:29)
[2017-04-11] MEDS: LEVETIRACETAM (100 MG/ML) 5ML CUP GTB ×2 (09:29→20:42)
[2017-04-11] MEDS: FAMOTIDINE 20 MG TAB GTB (09:29)
[2017-04-11] MEDS: POTASSIUM CHLORIDE 20 MEQ POWDER FOR ORAL SOLN GTB (09:31)
[2017-04-11] MEDS: METOPROLOL 100 MG TAB GTB ×2 (09:33→20:54)
[2017-04-11] MEDS: SPIRONOLACTONE 25 MG TAB GTB (09:34)
[2017-04-11] MEDS: AMIODARONE 200 MG TAB GTB (09:34)
[2017-04-11] MEDS: LISINOPRIL 20 MG TAB GTB ×2 (09:35→20:53)
[2017-04-11] MEDS: MEROPENEM 1 GM/50ML(PMX) 50 ML IVPB ×2 (09:57→20:47)
[2017-04-11] MEDS: DIGOXIN 0.125 MG TAB GTB (13:14)
[2017-04-11] MEDS: INSULIN GLARGINE [LANtus] 3 ML PEN SC (20:46)
[2017-04-11] MEDS: ATORVASTATIN 40 MG TAB GTB (20:50)
[2017-04-11 23:45] LABS: VANCOMYCIN,TROUGH 14.3 ug/ml (10.0-20.0)
[2017-04-12] MEDS: SOD CHLORIDE 0.9% IVPB (00:10)
[2017-04-12] MEDS: VANCOMYCIN IVPB (00:10)
[2017-04-12] MEDS: ALBUTEROL/IPRATROPIUM (NEB) 3 ML AMP NEB ×4 (01:59→19:56)
[2017-04-12 05:47] LABS: ADD MAN DIFF? NO
[2017-04-12 05:59] LABS: BASOPHILS % 0.4 % (0.0-2.0); EOSINOPHILS # 0.2 10^3/ul (0.0-0.5); EOSINOPHILS % 3.8 % (0.0-7.0); HEMATOCRIT 32.7 % (37.0-47.0); HEMOGLOBIN 10.4 g/dl (12.0-16.0); LYMPHOCYTES # 1.3 10^3/ul (0.8-2.9); MEAN CORPUSCULAR HEMOGLOBIN 26.1 pg (29.0-33.0); MEAN CORPUSCULAR HGB CONC 31.8 g/dl (32.0-37.0); MEAN PLATELET VOLUME 8.9 fl (7.4-10.4); MONOCYTE # 0.6 10^3/ul (0.3-0.9); MONOCYTES % 11.1 % (0.0-11.0); NEUTROPHIL # 3.4 10^3/ul (1.6-7.5); PLATELET COUNT 209 10^3/UL (140-415); RED BLOOD COUNT 3.99 10^6/ul (4.20-5.40); RED CELL DISTRIBUTION WIDTH 14.8 % (11.5-14.5)
[2017-04-12 05:59] LABS: WHITE BLOOD COUNT 5.5 10^3/ul (4.8-10.8)
[2017-04-12] MEDS: INSULIN ASPART [NOVOLOG] 3 ML PEN SC ×3 (06:07→17:24)
[2017-04-12] MEDS: FLUDROCORTISONE 0.1 MG TAB GTB ×3 (06:08→21:38)
[2017-04-12 06:30] LABS: ANION GAP 13 (8-16); BLOOD UREA NITROGEN 20 mg/dl (7-20); CALCIUM 9.1 mg/dl (8.4-10.2); CARBON DIOXIDE 34 mmol/L (21-31); CHLORIDE 104 mmol/L (97-110); CREATININE 0.54 mg/dl (0.44-1.00); GLUCOSE 133 mg/dl (70-220); POTASSIUM 3.7 mmol/L (3.5-5.1); SODIUM 147 mmol/L (135-144)
[2017-04-12] MEDS: FAMOTIDINE 20 MG TAB GTB (09:58)
[2017-04-12] MEDS: MULTIVITAMINS/MINERALS TAB GTB (09:58)
[2017-04-12] MEDS: FERROUS SULFATE 60 MG/ML 5ML CUP GTB (09:58)
[2017-04-12] MEDS: LEVETIRACETAM (100 MG/ML) 5ML CUP GTB ×2 (09:59→21:38)
[2017-04-12] MEDS: AMIODARONE 200 MG TAB GTB (09:59)
[2017-04-12] MEDS: METOPROLOL 100 MG TAB GTB ×2 (10:00→21:39)
[2017-04-12] MEDS: SPIRONOLACTONE 25 MG TAB GTB (10:00)
[2017-04-12] MEDS: POLYETHYLENE GLYCOL 17 GM PACKET GTB (10:00)
[2017-04-12] MEDS: POTASSIUM CHLORIDE 20 MEQ POWDER FOR ORAL SOLN GTB (10:00)
[2017-04-12] MEDS: LISINOPRIL 20 MG TAB GTB ×2 (10:01→21:39)
[2017-04-12] MEDS: MEROPENEM 1 GM/50ML(PMX) 50 ML IVPB ×2 (10:01→21:38)
[2017-04-12] MEDS: DIGOXIN 0.125 MG TAB GTB (13:25)
[2017-04-12] MEDS: ATORVASTATIN 40 MG TAB GTB (21:38)
[2017-04-12] MEDS: INSULIN GLARGINE [LANtus] 3 ML PEN SC (21:47)
[2017-04-13] MEDS: INSULIN ASPART [NOVOLOG] 3 ML PEN SC ×5 (01:21→23:27)
[2017-04-13] MEDS: SOD CHLORIDE 0.9% IVPB ×2 (01:22→23:27)
[2017-04-13] MEDS: VANCOMYCIN IVPB ×2 (01:22→23:27)
[2017-04-13] MEDS: ALBUTEROL/IPRATROPIUM (NEB) 3 ML AMP NEB ×4 (02:24→20:32)
[2017-04-13 05:38] LABS: ANION GAP 9 (8-16); BLOOD UREA NITROGEN 22 mg/dl (7-20); CARBON DIOXIDE 35 mmol/L (21-31); CHLORIDE 106 mmol/L (97-110); CREATININE 0.56 mg/dl (0.44-1.00); GLUCOSE 153 mg/dl (70-220); POTASSIUM 3.6 mmol/L (3.5-5.1); SODIUM 146 mmol/L (135-144)
[2017-04-13] MEDS: FLUDROCORTISONE 0.1 MG TAB GTB ×3 (06:08→21:02)
[2017-04-13] MEDS: FERROUS SULFATE 60 MG/ML 5ML CUP GTB (10:44)
[2017-04-13] MEDS: POTASSIUM CHLORIDE 20 MEQ POWDER FOR ORAL SOLN GTB (10:44)
[2017-04-13] MEDS: POLYETHYLENE GLYCOL 17 GM PACKET GTB (10:44)
[2017-04-13] MEDS: LEVETIRACETAM (100 MG/ML) 5ML CUP GTB ×2 (10:44→21:01)
[2017-04-13] MEDS: FAMOTIDINE 20 MG TAB GTB (10:45)
[2017-04-13] MEDS: METOPROLOL 100 MG TAB GTB ×2 (10:45→21:00)
[2017-04-13] MEDS: SPIRONOLACTONE 25 MG TAB GTB (10:45)
[2017-04-13] MEDS: AMIODARONE 200 MG TAB GTB (10:45)
[2017-04-13] MEDS: MULTIVITAMINS/MINERALS TAB GTB (10:46)
[2017-04-13] MEDS: LISINOPRIL 20 MG TAB GTB ×2 (10:46→21:00)
[2017-04-13] MEDS: MEROPENEM 1 GM/50ML(PMX) 50 ML IVPB ×2 (11:02→21:00)
[2017-04-13] MEDS: DIGOXIN 0.125 MG TAB GTB (13:07)
[2017-04-13] MEDS: ATORVASTATIN 40 MG TAB GTB (21:01)
[2017-04-13] MEDS: INSULIN GLARGINE [LANtus] 3 ML PEN SC (21:11)
[2017-04-14] MEDS: ALBUTEROL/IPRATROPIUM (NEB) 3 ML AMP NEB ×4 (02:10→20:08)
[2017-04-14] MEDS: FLUDROCORTISONE 0.1 MG TAB GTB ×3 (05:52→21:42)
[2017-04-14] MEDS: INSULIN ASPART [NOVOLOG] 3 ML PEN SC ×4 (05:52→23:17)
[2017-04-14] MEDS: FERROUS SULFATE 60 MG/ML 5ML CUP GTB (10:41)
[2017-04-14] MEDS: LEVETIRACETAM (100 MG/ML) 5ML CUP GTB ×2 (10:41→20:19)
[2017-04-14] MEDS: MEROPENEM 1 GM/50ML(PMX) 50 ML IVPB ×2 (10:41→20:19)
[2017-04-14] MEDS: LISINOPRIL 20 MG TAB GTB ×2 (10:42→20:19)
[2017-04-14] MEDS: MULTIVITAMINS/MINERALS TAB GTB (10:42)
[2017-04-14] MEDS: AMIODARONE 200 MG TAB GTB (10:42)
[2017-04-14] MEDS: POTASSIUM CHLORIDE 20 MEQ POWDER FOR ORAL SOLN GTB (10:42)
[2017-04-14] MEDS: POLYETHYLENE GLYCOL 17 GM PACKET GTB (10:42)
[2017-04-14] MEDS: METOPROLOL 100 MG TAB GTB ×2 (10:43→20:24)
[2017-04-14] MEDS: FAMOTIDINE 20 MG TAB GTB (10:43)
[2017-04-14] MEDS: SPIRONOLACTONE 25 MG TAB GTB (10:43)
[2017-04-14] MEDS: DIGOXIN 0.125 MG TAB GTB (12:40)
[2017-04-14] MEDS: hydrALAzine 20 MG INJ IV (18:37)
[2017-04-14] MEDS: ATORVASTATIN 40 MG TAB GTB (20:19)
[2017-04-14] MEDS: INSULIN GLARGINE [LANtus] 3 ML PEN SC (20:25)
[2017-04-14] MEDS: VANCOMYCIN IVPB (23:14)
[2017-04-14] MEDS: SOD CHLORIDE 0.9% IVPB (23:14)
[2017-04-15] MEDS: ALBUTEROL/IPRATROPIUM (NEB) 3 ML AMP NEB ×4 (02:18→20:16)
[2017-04-15] MEDS: FLUDROCORTISONE 0.1 MG TAB GTB ×3 (05:40→21:43)
[2017-04-15] MEDS: INSULIN ASPART [NOVOLOG] 3 ML PEN SC ×3 (05:40→17:41)
[2017-04-15 06:11] LABS: ADD MAN DIFF? NO
[2017-04-15 06:22] LABS: WHITE BLOOD COUNT 6.6 10^3/ul (4.8-10.8)
[2017-04-15 06:22] LABS: BASOPHILS % 0.5 % (0.0-2.0); EOSINOPHILS # 0.2 10^3/ul (0.0-0.5); EOSINOPHILS % 3.3 % (0.0-7.0); HEMATOCRIT 31.2 % (37.0-47.0); HEMOGLOBIN 9.6 g/dl (12.0-16.0); LYMPHOCYTES # 1.1 10^3/ul (0.8-2.9); LYMPHOCYTES % 16.5 % (15.0-51.0); MEAN CORPUSCULAR HEMOGLOBIN 25.5 pg (29.0-33.0); MEAN CORPUSCULAR HGB CONC 30.8 g/dl (32.0-37.0); MEAN CORPUSCULAR VOLUME 82.8 fl (82.0-101.0); MEAN PLATELET VOLUME 8.6 fl (7.4-10.4); MONOCYTE # 0.7 10^3/ul (0.3-0.9); MONOCYTES % 11.2 % (0.0-11.0); NEUTROPHIL # 4.5 10^3/ul (1.6-7.5); NEUTROPHILS % 67.7 % (39.0-77.0); PLATELET COUNT 214 10^3/UL (140-415); RED BLOOD COUNT 3.77 10^6/ul (4.20-5.40); RED CELL DISTRIBUTION WIDTH 14.7 % (11.5-14.5)
[2017-04-15 06:55] LABS: ANION GAP 9 (8-16); BLOOD UREA NITROGEN 22 mg/dl (7-20); CALCIUM 8.8 mg/dl (8.4-10.2); CARBON DIOXIDE 36 mmol/L (21-31); CHLORIDE 106 mmol/L (97-110); CREATININE 0.58 mg/dl (0.44-1.00); GLUCOSE 118 mg/dl (70-220); POTASSIUM 3.7 mmol/L (3.5-5.1); SODIUM 147 mmol/L (135-144)
[2017-04-15] MEDS: MEROPENEM 1 GM/50ML(PMX) 50 ML IVPB ×2 (10:31→21:41)
[2017-04-15] MEDS: LEVETIRACETAM (100 MG/ML) 5ML CUP GTB ×2 (10:36→21:41)
[2017-04-15] MEDS: FERROUS SULFATE 60 MG/ML 5ML CUP GTB (10:36)
[2017-04-15] MEDS: SPIRONOLACTONE 25 MG TAB GTB (10:37)
[2017-04-15] MEDS: POTASSIUM CHLORIDE 20 MEQ POWDER FOR ORAL SOLN GTB (10:37)
[2017-04-15] MEDS: METOPROLOL 100 MG TAB GTB ×2 (10:38→21:43)
[2017-04-15] MEDS: LISINOPRIL 20 MG TAB GTB ×2 (10:38→21:43)
[2017-04-15] MEDS: FAMOTIDINE 20 MG TAB GTB (10:39)
[2017-04-15] MEDS: POLYETHYLENE GLYCOL 17 GM PACKET GTB (10:39)
[2017-04-15] MEDS: MULTIVITAMINS/MINERALS TAB GTB (10:39)
[2017-04-15] MEDS: AMIODARONE 200 MG TAB GTB (10:39)
[2017-04-15] MEDS: DIGOXIN 0.125 MG TAB GTB (14:29)
[2017-04-15] MEDS: ATORVASTATIN 40 MG TAB GTB (21:43)
[2017-04-15] MEDS: INSULIN GLARGINE [LANtus] 3 ML PEN SC (21:46)
[2017-04-16] MEDS: SOD CHLORIDE 0.9% IVPB ×2 (00:31→23:55)
[2017-04-16] MEDS: VANCOMYCIN IVPB ×2 (00:31→23:55)
[2017-04-16 00:48] LABS: VANCOMYCIN,TROUGH 14.4 ug/ml (10.0-20.0)
[2017-04-16] MEDS: ALBUTEROL/IPRATROPIUM (NEB) 3 ML AMP NEB ×4 (01:46→20:03)
[2017-04-16] MEDS: INSULIN ASPART [NOVOLOG] 3 ML PEN SC ×5 (06:00→23:56)
[2017-04-16] MEDS: FLUDROCORTISONE 0.1 MG TAB GTB ×3 (06:04→22:27)
[2017-04-16] MEDS: FERROUS SULFATE 60 MG/ML 5ML CUP GTB (09:35)
[2017-04-16] MEDS: POLYETHYLENE GLYCOL 17 GM PACKET GTB (09:35)
[2017-04-16] MEDS: LEVETIRACETAM (100 MG/ML) 5ML CUP GTB ×2 (09:35→20:43)
[2017-04-16] MEDS: AMIODARONE 200 MG TAB GTB (09:36)
[2017-04-16] MEDS: MULTIVITAMINS/MINERALS TAB GTB (09:36)
[2017-04-16] MEDS: LISINOPRIL 20 MG TAB GTB ×2 (09:36→20:46)
[2017-04-16] MEDS: FAMOTIDINE 20 MG TAB GTB (09:36)
[2017-04-16] MEDS: SPIRONOLACTONE 25 MG TAB GTB (09:36)
[2017-04-16] MEDS: METOPROLOL 100 MG TAB GTB ×2 (09:36→20:46)
[2017-04-16] MEDS: POTASSIUM CHLORIDE 20 MEQ POWDER FOR ORAL SOLN GTB (09:36)
[2017-04-16] MEDS: MEROPENEM 1 GM/50ML(PMX) 50 ML IVPB ×2 (09:45→20:45)
[2017-04-16] MEDS: DIGOXIN 0.125 MG TAB GTB (13:36)
[2017-04-16] MEDS: ATORVASTATIN 40 MG TAB GTB (20:44)
[2017-04-16] MEDS: INSULIN GLARGINE [LANtus] 3 ML PEN SC (20:52)
[2017-04-17] MEDS: hydrALAzine 20 MG INJ IV (03:18)
[2017-04-17] MEDS: ALBUTEROL/IPRATROPIUM (NEB) 3 ML AMP NEB ×4 (03:36→19:47)
[2017-04-17] MEDS: FLUDROCORTISONE 0.1 MG TAB GTB ×3 (05:56→21:54)
[2017-04-17] MEDS: INSULIN ASPART [NOVOLOG] 3 ML PEN SC ×3 (06:06→18:26)
[2017-04-17 06:12] LABS: ADD MAN DIFF? NO
[2017-04-17 06:25] LABS: WHITE BLOOD COUNT 7.8 10^3/ul (4.8-10.8)
[2017-04-17 06:25] LABS: BASOPHILS % 0.4 % (0.0-2.0); EOSINOPHILS # 0.3 10^3/ul (0.0-0.5); EOSINOPHILS % 3.2 % (0.0-7.0); HEMATOCRIT 32.5 % (37.0-47.0); HEMOGLOBIN 10.3 g/dl (12.0-16.0); LYMPHOCYTES # 1.2 10^3/ul (0.8-2.9); LYMPHOCYTES % 14.8 % (15.0-51.0); MEAN CORPUSCULAR HEMOGLOBIN 25.9 pg (29.0-33.0); MEAN CORPUSCULAR HGB CONC 31.7 g/dl (32.0-37.0); MEAN CORPUSCULAR VOLUME 81.9 fl (82.0-101.0); MEAN PLATELET VOLUME 8.9 fl (7.4-10.4); MONOCYTE # 0.7 10^3/ul (0.3-0.9); MONOCYTES % 8.8 % (0.0-11.0); NEUTROPHIL # 5.6 10^3/ul (1.6-7.5); NEUTROPHILS % 71.9 % (39.0-77.0); PLATELET COUNT 214 10^3/UL (140-415); RED BLOOD COUNT 3.97 10^6/ul (4.20-5.40); RED CELL DISTRIBUTION WIDTH 14.3 % (11.5-14.5)
[2017-04-17 07:00] LABS: ANION GAP 8 (8-16); BLOOD UREA NITROGEN 20 mg/dl (7-20); CALCIUM 8.8 mg/dl (8.4-10.2); CARBON DIOXIDE 35 mmol/L (21-31); CHLORIDE 106 mmol/L (97-110); CREATININE 0.55 mg/dl (0.44-1.00); GLUCOSE 130 mg/dl (70-220); POTASSIUM 3.4 mmol/L (3.5-5.1); SODIUM 146 mmol/L (135-144)
[2017-04-17] MEDS: MULTIVITAMINS/MINERALS TAB GTB (09:53)
[2017-04-17] MEDS: FERROUS SULFATE 60 MG/ML 5ML CUP GTB (09:53)
[2017-04-17] MEDS: SPIRONOLACTONE 25 MG TAB GTB (09:53)
[2017-04-17] MEDS: LEVETIRACETAM (100 MG/ML) 5ML CUP GTB ×2 (09:53→20:22)
[2017-04-17] MEDS: POLYETHYLENE GLYCOL 17 GM PACKET GTB (09:53)
[2017-04-17] MEDS: FAMOTIDINE 20 MG TAB GTB (09:54)
[2017-04-17] MEDS: POTASSIUM CHLORIDE 20 MEQ POWDER FOR ORAL SOLN GTB (09:54)
[2017-04-17] MEDS: METOPROLOL 100 MG TAB GTB ×2 (09:55→20:23)
[2017-04-17] MEDS: MEROPENEM 1 GM/50ML(PMX) 50 ML IVPB ×2 (09:55→20:23)
[2017-04-17] MEDS: LISINOPRIL 20 MG TAB GTB ×2 (09:55→20:22)
[2017-04-17] MEDS: AMIODARONE 200 MG TAB GTB (09:55)
[2017-04-17] MEDS: DIGOXIN 0.125 MG TAB GTB (13:32)
[2017-04-17] MEDS: ATORVASTATIN 40 MG TAB GTB (20:22)
[2017-04-17] MEDS: INSULIN GLARGINE [LANtus] 3 ML PEN SC (20:31)
[2017-04-18] MEDS: VANCOMYCIN IVPB (00:19)
[2017-04-18] MEDS: SOD CHLORIDE 0.9% IVPB (00:19)
[2017-04-18] MEDS: ALBUTEROL/IPRATROPIUM (NEB) 3 ML AMP NEB ×4 (01:43→19:51)
[2017-04-18 05:36] LABS: ADD MAN DIFF? NO
[2017-04-18 05:40] LABS: WHITE BLOOD COUNT 7.5 10^3/ul (4.8-10.8)
[2017-04-18 05:40] LABS: BASOPHIL # 0.1 10^3/ul (0.0-0.1); BASOPHILS % 0.7 % (0.0-2.0); EOSINOPHILS # 0.2 10^3/ul (0.0-0.5); EOSINOPHILS % 2.4 % (0.0-7.0); HEMATOCRIT 32.7 % (37.0-47.0); HEMOGLOBIN 10.4 g/dl (12.0-16.0); LYMPHOCYTES # 1.6 10^3/ul (0.8-2.9); MEAN CORPUSCULAR HGB CONC 31.8 g/dl (32.0-37.0); MEAN CORPUSCULAR VOLUME 81.8 fl (82.0-101.0); MEAN PLATELET VOLUME 8.7 fl (7.4-10.4); MONOCYTE # 0.8 10^3/ul (0.3-0.9); MONOCYTES % 10.5 % (0.0-11.0); NEUTROPHIL # 4.8 10^3/ul (1.6-7.5); NEUTROPHILS % 64.2 % (39.0-77.0); PLATELET COUNT 204 10^3/UL (140-415); RED CELL DISTRIBUTION WIDTH 14.4 % (11.5-14.5)
[2017-04-18] MEDS: INSULIN ASPART [NOVOLOG] 3 ML PEN SC ×4 (06:00→18:00)
[2017-04-18 06:07] LABS: ANION GAP 12 (8-16); BLOOD UREA NITROGEN 23 mg/dl (7-20); CALCIUM 9.1 mg/dl (8.4-10.2); CARBON DIOXIDE 34 mmol/L (21-31); CHLORIDE 106 mmol/L (97-110); CREATININE 0.59 mg/dl (0.44-1.00); GLUCOSE 123 mg/dl (70-220); POTASSIUM 3.6 mmol/L (3.5-5.1); SODIUM 148 mmol/L (135-144)
[2017-04-18] MEDS: FLUDROCORTISONE 0.1 MG TAB GTB ×3 (06:12→22:24)
[2017-04-18] MEDS: MULTIVITAMINS/MINERALS TAB GTB (09:12)
[2017-04-18] MEDS: LISINOPRIL 20 MG TAB GTB ×2 (09:12→22:26)
[2017-04-18] MEDS: METOPROLOL 100 MG TAB GTB ×2 (09:13→22:26)
[2017-04-18] MEDS: POLYETHYLENE GLYCOL 17 GM PACKET GTB (09:14)
[2017-04-18] MEDS: AMIODARONE 200 MG TAB GTB (09:14)
[2017-04-18] MEDS: FAMOTIDINE 20 MG TAB GTB (09:14)
[2017-04-18] MEDS: FERROUS SULFATE 60 MG/ML 5ML CUP GTB (09:14)
[2017-04-18] MEDS: SPIRONOLACTONE 25 MG TAB GTB (09:15)
[2017-04-18] MEDS: POTASSIUM CHLORIDE 20 MEQ POWDER FOR ORAL SOLN GTB (09:15)
[2017-04-18] MEDS: MEROPENEM 1 GM/50ML(PMX) 50 ML IVPB ×2 (09:15→22:23)
[2017-04-18] MEDS: LEVETIRACETAM (100 MG/ML) 5ML CUP GTB ×2 (09:15→22:23)
[2017-04-18] MEDS: DIGOXIN 0.125 MG TAB GTB (13:47)
[2017-04-18] MEDS: ATORVASTATIN 40 MG TAB GTB (22:23)
[2017-04-18] MEDS: INSULIN GLARGINE [LANtus] 3 ML PEN SC (22:31)
[2017-04-19] MEDS: SOD CHLORIDE 0.9% IVPB (00:39)
[2017-04-19] MEDS: VANCOMYCIN IVPB (00:39)
[2017-04-19] MEDS: ALBUTEROL/IPRATROPIUM (NEB) 3 ML AMP NEB ×4 (02:00→20:51)
[2017-04-19] MEDS: FLUDROCORTISONE 0.1 MG TAB GTB ×3 (05:31→22:38)
[2017-04-19] MEDS: INSULIN ASPART [NOVOLOG] 3 ML PEN SC ×4 (05:31→17:56)
[2017-04-19] MEDS: MEROPENEM 1 GM/50ML(PMX) 50 ML IVPB ×2 (09:28→20:07)
[2017-04-19] MEDS: POTASSIUM CHLORIDE 20 MEQ POWDER FOR ORAL SOLN GTB (09:30)
[2017-04-19] MEDS: LISINOPRIL 20 MG TAB GTB ×2 (09:30→20:08)
[2017-04-19] MEDS: AMIODARONE 200 MG TAB GTB (09:30)
[2017-04-19] MEDS: FERROUS SULFATE 60 MG/ML 5ML CUP GTB (09:31)
[2017-04-19] MEDS: METOPROLOL 100 MG TAB GTB ×2 (09:31→20:08)
[2017-04-19] MEDS: FAMOTIDINE 20 MG TAB GTB (09:31)
[2017-04-19] MEDS: MULTIVITAMINS/MINERALS TAB GTB (09:31)
[2017-04-19] MEDS: LEVETIRACETAM (100 MG/ML) 5ML CUP GTB ×2 (09:31→20:07)
[2017-04-19] MEDS: SPIRONOLACTONE 25 MG TAB GTB (09:31)
[2017-04-19] MEDS: POLYETHYLENE GLYCOL 17 GM PACKET GTB (09:31)
[2017-04-19] MEDS: DIGOXIN 0.125 MG TAB GTB (13:10)
[2017-04-19] MEDS: ATORVASTATIN 40 MG TAB GTB (20:08)
[2017-04-19] MEDS: INSULIN GLARGINE [LANtus] 3 ML PEN SC (20:15)
[2017-04-20] MEDS: SOD CHLORIDE 0.9% IVPB (00:22)
[2017-04-20] MEDS: VANCOMYCIN IVPB (00:22)
[2017-04-20] MEDS: ALBUTEROL/IPRATROPIUM (NEB) 3 ML AMP NEB ×4 (02:17→20:17)
[2017-04-20] MEDS: INSULIN ASPART [NOVOLOG] 3 ML PEN SC ×4 (05:40→18:00)
[2017-04-20] MEDS: FLUDROCORTISONE 0.1 MG TAB GTB ×3 (05:41→21:52)
[2017-04-20 06:49] LABS: BLOOD UREA NITROGEN 22 mg/dl (7-20)
[2017-04-20 06:49] LABS: CREATININE 0.55 mg/dl (0.44-1.00)
[2017-04-20] MEDS: LEVETIRACETAM (100 MG/ML) 5ML CUP GTB ×2 (09:57→21:50)
[2017-04-20] MEDS: FERROUS SULFATE 60 MG/ML 5ML CUP GTB (09:57)
[2017-04-20] MEDS: MEROPENEM 1 GM/50ML(PMX) 50 ML IVPB ×2 (09:57→21:52)
[2017-04-20] MEDS: POTASSIUM CHLORIDE 20 MEQ POWDER FOR ORAL SOLN GTB (09:57)
[2017-04-20] MEDS: POLYETHYLENE GLYCOL 17 GM PACKET GTB (09:57)
[2017-04-20] MEDS: MULTIVITAMINS/MINERALS TAB GTB (09:58)
[2017-04-20] MEDS: FAMOTIDINE 20 MG TAB GTB (09:58)
[2017-04-20] MEDS: AMIODARONE 200 MG TAB GTB (09:58)
[2017-04-20] MEDS: SPIRONOLACTONE 25 MG TAB GTB (09:59)
[2017-04-20] MEDS: METOPROLOL 100 MG TAB GTB ×2 (09:59→21:51)
[2017-04-20] MEDS: LISINOPRIL 20 MG TAB GTB ×2 (09:59→21:52)
[2017-04-20] MEDS: DIGOXIN 0.125 MG TAB GTB (13:14)
[2017-04-20] MEDS: NYSTATIN SUSP 5 ML CUP PO ×2 (18:29→21:50)
[2017-04-20] MEDS: hydrALAzine 20 MG INJ IV (18:42)
[2017-04-20] MEDS: ATORVASTATIN 40 MG TAB GTB (21:52)
[2017-04-20] MEDS: INSULIN GLARGINE [LANtus] 3 ML PEN SC (21:55)
[2017-04-21 01:04] LABS: VANCOMYCIN,TROUGH 16.5 ug/ml (10.0-20.0)
[2017-04-21] MEDS: ALBUTEROL/IPRATROPIUM (NEB) 3 ML AMP NEB ×4 (01:25→20:19)
[2017-04-21] MEDS: VANCOMYCIN IVPB (01:57)
[2017-04-21] MEDS: SOD CHLORIDE 0.9% IVPB (01:57)
[2017-04-21 05:36] LABS: ADD MAN DIFF? NO
[2017-04-21 05:47] LABS: WHITE BLOOD COUNT 9.4 10^3/ul (4.8-10.8)
[2017-04-21 05:47] LABS: BASOPHIL # 0.1 10^3/ul (0.0-0.1); BASOPHILS % 0.6 % (0.0-2.0); EOSINOPHILS # 0.2 10^3/ul (0.0-0.5); EOSINOPHILS % 2.2 % (0.0-7.0); HEMATOCRIT 32.7 % (37.0-47.0); HEMOGLOBIN 10.4 g/dl (12.0-16.0); LYMPHOCYTES # 1.4 10^3/ul (0.8-2.9); LYMPHOCYTES % 14.9 % (15.0-51.0); MEAN CORPUSCULAR HEMOGLOBIN 26.1 pg (29.0-33.0); MEAN CORPUSCULAR HGB CONC 31.8 g/dl (32.0-37.0); MEAN PLATELET VOLUME 8.8 fl (7.4-10.4); MONOCYTE # 0.7 10^3/ul (0.3-0.9); MONOCYTES % 7.9 % (0.0-11.0); NEUTROPHIL # 6.9 10^3/ul (1.6-7.5); NEUTROPHILS % 73.7 % (39.0-77.0); PLATELET COUNT 203 10^3/UL (140-415); RED BLOOD COUNT 3.99 10^6/ul (4.20-5.40); RED CELL DISTRIBUTION WIDTH 14.4 % (11.5-14.5)
[2017-04-21] MEDS: INSULIN ASPART [NOVOLOG] 3 ML PEN SC ×4 (06:00→18:05)
[2017-04-21] MEDS: FLUDROCORTISONE 0.1 MG TAB GTB ×3 (06:07→21:40)
[2017-04-21 07:00] LABS: ANION GAP 10 (8-16); BLOOD UREA NITROGEN 22 mg/dl (7-20); CALCIUM 8.8 mg/dl (8.4-10.2); CARBON DIOXIDE 36 mmol/L (21-31); CHLORIDE 108 mmol/L (97-110); GLUCOSE 106 mg/dl (70-220); POTASSIUM 3.3 mmol/L (3.5-5.1); SODIUM 151 mmol/L (135-144)
[2017-04-21] MEDS: LISINOPRIL 20 MG TAB GTB ×2 (08:44→21:40)
[2017-04-21] MEDS: SPIRONOLACTONE 25 MG TAB GTB (08:44)
[2017-04-21] MEDS: MULTIVITAMINS/MINERALS TAB GTB (08:45)
[2017-04-21] MEDS: AMIODARONE 200 MG TAB GTB (08:45)
[2017-04-21] MEDS: METOPROLOL 100 MG TAB GTB ×2 (08:45→21:41)
[2017-04-21] MEDS: LEVETIRACETAM (100 MG/ML) 5ML CUP GTB ×2 (08:46→21:39)
[2017-04-21] MEDS: FAMOTIDINE 20 MG TAB GTB (08:46)
[2017-04-21] MEDS: NYSTATIN SUSP 5 ML CUP PO ×4 (08:46→21:39)
[2017-04-21] MEDS: POLYETHYLENE GLYCOL 17 GM PACKET GTB (08:46)
[2017-04-21] MEDS: FERROUS SULFATE 60 MG/ML 5ML CUP GTB (08:46)
[2017-04-21] MEDS: POTASSIUM CHLORIDE 20 MEQ POWDER FOR ORAL SOLN GTB (08:46)
[2017-04-21] MEDS: MEROPENEM 1 GM/50ML(PMX) 50 ML IVPB ×2 (08:52→21:41)
[2017-04-21] MEDS ORDERED: DEXTROSE 5% 1,000 ML IV (12:30)
[2017-04-21] MEDS: DIGOXIN 0.125 MG TAB GTB (14:34)
[2017-04-21] MEDS: DEXTROSE 5% 250 ML IV (18:07)
[2017-04-21] MEDS: ATORVASTATIN 40 MG TAB GTB (21:40)
[2017-04-21] MEDS: INSULIN GLARGINE [LANtus] 3 ML PEN SC (22:00)
[2017-04-22] MEDS: DEXTROSE 5% 250 ML IV ×3 (00:15→08:49)
[2017-04-22] MEDS: VANCOMYCIN IVPB (00:37)
[2017-04-22] MEDS: SOD CHLORIDE 0.9% IVPB (00:37)
[2017-04-22] MEDS: INSULIN ASPART [NOVOLOG] 3 ML PEN SC ×5 (00:43→23:16)
[2017-04-22] MEDS: ALBUTEROL/IPRATROPIUM (NEB) 3 ML AMP NEB ×4 (01:10→19:48)
[2017-04-22 05:36] LABS: ADD MAN DIFF? NO
[2017-04-22 05:42] LABS: WHITE BLOOD COUNT 8.6 10^3/ul (4.8-10.8)
[2017-04-22 05:42] LABS: BASOPHILS % 0.5 % (0.0-2.0); EOSINOPHILS # 0.3 10^3/ul (0.0-0.5); EOSINOPHILS % 2.9 % (0.0-7.0); HEMATOCRIT 30.9 % (37.0-47.0); HEMOGLOBIN 9.8 g/dl (12.0-16.0); LYMPHOCYTES # 1.6 10^3/ul (0.8-2.9); LYMPHOCYTES % 18.1 % (15.0-51.0); MEAN CORPUSCULAR HEMOGLOBIN 26.1 pg (29.0-33.0); MEAN CORPUSCULAR HGB CONC 31.7 g/dl (32.0-37.0); MEAN CORPUSCULAR VOLUME 82.2 fl (82.0-101.0); MEAN PLATELET VOLUME 9.1 fl (7.4-10.4); MONOCYTE # 0.6 10^3/ul (0.3-0.9); NEUTROPHIL # 6.1 10^3/ul (1.6-7.5); NEUTROPHILS % 70.9 % (39.0-77.0); PLATELET COUNT 187 10^3/UL (140-415); RED BLOOD COUNT 3.76 10^6/ul (4.20-5.40); RED CELL DISTRIBUTION WIDTH 14.5 % (11.5-14.5)
[2017-04-22 06:17] LABS: ANION GAP 12 (8-16); BLOOD UREA NITROGEN 23 mg/dl (7-20); CALCIUM 8.8 mg/dl (8.4-10.2); CARBON DIOXIDE 35 mmol/L (21-31); CHLORIDE 105 mmol/L (97-110); CREATININE 0.55 mg/dl (0.44-1.00); GLUCOSE 131 mg/dl (70-220); POTASSIUM 3.3 mmol/L (3.5-5.1); SODIUM 149 mmol/L (135-144)
[2017-04-22] MEDS: FLUDROCORTISONE 0.1 MG TAB GTB ×3 (06:50→23:08)
[2017-04-22] MEDS: LEVETIRACETAM (100 MG/ML) 5ML CUP GTB ×2 (08:46→20:46)
[2017-04-22] MEDS: MULTIVITAMINS/MINERALS TAB GTB (08:46)
[2017-04-22] MEDS: FAMOTIDINE 20 MG TAB GTB (08:46)
[2017-04-22] MEDS: FERROUS SULFATE 60 MG/ML 5ML CUP GTB (08:46)
[2017-04-22] MEDS: POTASSIUM CHLORIDE 20 MEQ POWDER FOR ORAL SOLN GTB (08:46)
[2017-04-22] MEDS: LISINOPRIL 20 MG TAB GTB ×2 (08:47→20:47)
[2017-04-22] MEDS: METOPROLOL 100 MG TAB GTB ×2 (08:47→20:47)
[2017-04-22] MEDS: AMIODARONE 200 MG TAB GTB (08:48)
[2017-04-22] MEDS: POLYETHYLENE GLYCOL 17 GM PACKET GTB (08:48)
[2017-04-22] MEDS: NYSTATIN SUSP 5 ML CUP PO ×4 (08:48→20:46)
[2017-04-22] MEDS: SPIRONOLACTONE 25 MG TAB GTB (08:48)
[2017-04-22] MEDS: MEROPENEM 1 GM/50ML(PMX) 50 ML IVPB ×2 (09:37→20:46)
[2017-04-22] MEDS: D5W + KCL 20 MEQ 1,000 ML IV (11:27)
[2017-04-22] MEDS: POTASSIUM CHLORIDE 100 ML IVPB (11:28)
[2017-04-22] MEDS: DIGOXIN 0.125 MG TAB GTB (13:22)
[2017-04-22] MEDS: ATORVASTATIN 40 MG TAB GTB (20:46)
[2017-04-22] MEDS: INSULIN GLARGINE [LANtus] 3 ML PEN SC (23:17)
[2017-04-23] MEDS: VANCOMYCIN IVPB (00:05)
[2017-04-23] MEDS: SOD CHLORIDE 0.9% IVPB (00:05)
[2017-04-23] MEDS: ALBUTEROL/IPRATROPIUM (NEB) 3 ML AMP NEB ×4 (02:12→19:48)
[2017-04-23] MEDS: D5W + KCL 20 MEQ 1,000 ML IV ×2 (02:40→15:00)
[2017-04-23] MEDS: FLUDROCORTISONE 0.1 MG TAB GTB ×3 (05:45→22:05)
[2017-04-23 05:52] LABS: ADD MAN DIFF? NO
[2017-04-23] MEDS: INSULIN ASPART [NOVOLOG] 3 ML PEN SC ×4 (05:56→23:44)
[2017-04-23 06:05] LABS: BASOPHILS % 0.5 % (0.0-2.0); EOSINOPHILS # 0.2 10^3/ul (0.0-0.5); EOSINOPHILS % 2.8 % (0.0-7.0); HEMATOCRIT 31.6 % (37.0-47.0); HEMOGLOBIN 10.1 g/dl (12.0-16.0); LYMPHOCYTES # 1.4 10^3/ul (0.8-2.9); LYMPHOCYTES % 17.1 % (15.0-51.0); MEAN CORPUSCULAR HEMOGLOBIN 26.4 pg (29.0-33.0); MEAN CORPUSCULAR VOLUME 82.7 fl (82.0-101.0); MEAN PLATELET VOLUME 8.9 fl (7.4-10.4); MONOCYTE # 0.7 10^3/ul (0.3-0.9); MONOCYTES % 8.3 % (0.0-11.0); NEUTROPHIL # 5.9 10^3/ul (1.6-7.5); NEUTROPHILS % 70.6 % (39.0-77.0); PLATELET COUNT 199 10^3/UL (140-415); RED BLOOD COUNT 3.82 10^6/ul (4.20-5.40)
[2017-04-23 06:05] LABS: WHITE BLOOD COUNT 8.3 10^3/ul (4.8-10.8)
[2017-04-23 06:15] LABS: ANION GAP 13 (8-16); BLOOD UREA NITROGEN 18 mg/dl (7-20); CALCIUM 9.1 mg/dl (8.4-10.2); CARBON DIOXIDE 34 mmol/L (21-31); CHLORIDE 106 mmol/L (97-110); CREATININE 0.56 mg/dl (0.44-1.00); GLUCOSE 129 mg/dl (70-220); POTASSIUM 3.6 mmol/L (3.5-5.1); SODIUM 149 mmol/L (135-144)
[2017-04-23] MEDS: LISINOPRIL 20 MG TAB GTB ×2 (09:45→20:19)
[2017-04-23] MEDS: MEROPENEM 1 GM/50ML(PMX) 50 ML IVPB ×2 (09:45→22:05)
[2017-04-23] MEDS: LEVETIRACETAM (100 MG/ML) 5ML CUP GTB ×2 (09:45→20:17)
[2017-04-23] MEDS: FERROUS SULFATE 60 MG/ML 5ML CUP GTB (09:45)
[2017-04-23] MEDS: POTASSIUM CHLORIDE 20 MEQ POWDER FOR ORAL SOLN GTB (09:45)
[2017-04-23] MEDS: NYSTATIN SUSP 5 ML CUP PO ×4 (09:46→20:17)
[2017-04-23] MEDS: FAMOTIDINE 20 MG TAB GTB (09:46)
[2017-04-23] MEDS: MULTIVITAMINS/MINERALS TAB GTB (09:46)
[2017-04-23] MEDS: AMIODARONE 200 MG TAB GTB (09:46)
[2017-04-23] MEDS: METOPROLOL 100 MG TAB GTB ×2 (09:46→20:19)
[2017-04-23] MEDS: SPIRONOLACTONE 25 MG TAB GTB (09:46)
[2017-04-23] MEDS: POLYETHYLENE GLYCOL 17 GM PACKET GTB (09:47)
[2017-04-23] MEDS: DIGOXIN 0.125 MG TAB GTB (12:29)
[2017-04-23] MEDS: INSULIN GLARGINE [LANtus] 3 ML PEN SC (20:15)
[2017-04-23] MEDS: ATORVASTATIN 40 MG TAB GTB (20:18)
[2017-04-24] MEDS: VANCOMYCIN IVPB ×2 (00:32→23:40)
[2017-04-24] MEDS: SOD CHLORIDE 0.9% IVPB ×2 (00:32→23:40)
[2017-04-24] MEDS: ALBUTEROL/IPRATROPIUM (NEB) 3 ML AMP NEB ×4 (01:00→19:30)
[2017-04-24] MEDS: FLUDROCORTISONE 0.1 MG TAB GTB ×3 (05:24→21:50)
[2017-04-24] MEDS: INSULIN ASPART [NOVOLOG] 3 ML PEN SC ×4 (05:28→23:38)
[2017-04-24] MEDS: SPIRONOLACTONE 25 MG TAB GTB (08:53)
[2017-04-24] MEDS: FERROUS SULFATE 60 MG/ML 5ML CUP GTB (08:54)
[2017-04-24] MEDS: AMIODARONE 200 MG TAB GTB (08:54)
[2017-04-24] MEDS: LEVETIRACETAM (100 MG/ML) 5ML CUP GTB ×2 (08:55→21:49)
[2017-04-24] MEDS: FAMOTIDINE 20 MG TAB GTB (08:55)
[2017-04-24] MEDS: NYSTATIN SUSP 5 ML CUP PO ×4 (08:55→21:50)
[2017-04-24] MEDS: MULTIVITAMINS/MINERALS TAB GTB (08:55)
[2017-04-24] MEDS: METOPROLOL 100 MG TAB GTB ×2 (08:55→21:50)
[2017-04-24] MEDS: LISINOPRIL 20 MG TAB GTB ×2 (08:56→21:49)
[2017-04-24] MEDS: POLYETHYLENE GLYCOL 17 GM PACKET GTB (08:56)
[2017-04-24] MEDS: POTASSIUM CHLORIDE 20 MEQ POWDER FOR ORAL SOLN GTB (08:56)
[2017-04-24] MEDS: MEROPENEM 1 GM/50ML(PMX) 50 ML IVPB ×2 (09:19→21:58)
[2017-04-24] MEDS: D5W + KCL 20 MEQ 1,000 ML IV ×2 (12:00→19:36)
[2017-04-24] MEDS: DIGOXIN 0.125 MG TAB GTB (12:24)
[2017-04-24 14:32] LABS: ADD MAN DIFF? NO
[2017-04-24 14:37] LABS: WHITE BLOOD COUNT 10.9 10^3/ul (4.8-10.8)
[2017-04-24 14:37] LABS: BASOPHIL # 0.1 10^3/ul (0.0-0.1); BASOPHILS % 0.5 % (0.0-2.0); EOSINOPHILS # 0.2 10^3/ul (0.0-0.5); EOSINOPHILS % 1.7 % (0.0-7.0); HEMATOCRIT 35.4 % (37.0-47.0); HEMOGLOBIN 11.3 g/dl (12.0-16.0); LYMPHOCYTES # 1.3 10^3/ul (0.8-2.9); LYMPHOCYTES % 11.9 % (15.0-51.0); MEAN CORPUSCULAR HGB CONC 31.9 g/dl (32.0-37.0); MEAN CORPUSCULAR VOLUME 81.6 fl (82.0-101.0); MEAN PLATELET VOLUME 8.7 fl (7.4-10.4); MONOCYTE # 0.8 10^3/ul (0.3-0.9); MONOCYTES % 7.1 % (0.0-11.0); NEUTROPHIL # 8.5 10^3/ul (1.6-7.5); NEUTROPHILS % 77.7 % (39.0-77.0); PLATELET COUNT 224 10^3/UL (140-415); RED BLOOD COUNT 4.34 10^6/ul (4.20-5.40); RED CELL DISTRIBUTION WIDTH 14.4 % (11.5-14.5)
[2017-04-24 14:55] LABS: ANION GAP 15 (8-16); BLOOD UREA NITROGEN 19 mg/dl (7-20); CALCIUM 9.2 mg/dl (8.4-10.2); CARBON DIOXIDE 34 mmol/L (21-31); CHLORIDE 105 mmol/L (97-110); CREATININE 0.56 mg/dl (0.44-1.00); GLUCOSE 154 mg/dl (70-220); POTASSIUM 4.2 mmol/L (3.5-5.1); SODIUM 150 mmol/L (135-144)
[2017-04-24] MEDS: ATORVASTATIN 40 MG TAB GTB (21:49)
[2017-04-24] MEDS: INSULIN GLARGINE [LANtus] 3 ML PEN SC (21:58)
[2017-04-25] MEDS: ALBUTEROL/IPRATROPIUM (NEB) 3 ML AMP NEB ×4 (02:10→19:41)
[2017-04-25] MEDS: D5W + KCL 20 MEQ 1,000 ML IV ×2 (04:40→17:58)
[2017-04-25] MEDS: INSULIN ASPART [NOVOLOG] 3 ML PEN SC ×4 (05:27→23:28)
[2017-04-25] MEDS: FLUDROCORTISONE 0.1 MG TAB GTB ×3 (05:30→21:10)
[2017-04-25 06:14] LABS: ADD MAN DIFF? NO
[2017-04-25 06:22] LABS: BASOPHILS % 0.4 % (0.0-2.0); EOSINOPHILS # 0.3 10^3/ul (0.0-0.5); EOSINOPHILS % 2.8 % (0.0-7.0); HEMATOCRIT 33.6 % (37.0-47.0); HEMOGLOBIN 10.8 g/dl (12.0-16.0); LYMPHOCYTES # 1.5 10^3/ul (0.8-2.9); MEAN CORPUSCULAR HEMOGLOBIN 26.2 pg (29.0-33.0); MEAN CORPUSCULAR HGB CONC 32.1 g/dl (32.0-37.0); MEAN CORPUSCULAR VOLUME 81.6 fl (82.0-101.0); MEAN PLATELET VOLUME 9.1 fl (7.4-10.4); MONOCYTE # 0.7 10^3/ul (0.3-0.9); MONOCYTES % 7.6 % (0.0-11.0); NEUTROPHIL # 6.5 10^3/ul (1.6-7.5); NEUTROPHILS % 72.4 % (39.0-77.0); PLATELET COUNT 213 10^3/UL (140-415); RED BLOOD COUNT 4.12 10^6/ul (4.20-5.40); RED CELL DISTRIBUTION WIDTH 14.1 % (11.5-14.5)
[2017-04-25 06:55] LABS: ANION GAP 11 (8-16); BLOOD UREA NITROGEN 18 mg/dl (7-20); CARBON DIOXIDE 34 mmol/L (21-31); CHLORIDE 108 mmol/L (97-110); CREATININE 0.52 mg/dl (0.44-1.00); GLUCOSE 120 mg/dl (70-220); POTASSIUM 3.5 mmol/L (3.5-5.1); SODIUM 149 mmol/L (135-144)
[2017-04-25] MEDS: MEROPENEM 1 GM/50ML(PMX) 50 ML IVPB ×2 (08:53→21:07)
[2017-04-25] MEDS: NYSTATIN SUSP 5 ML CUP PO ×4 (08:53→21:09)
[2017-04-25] MEDS: POLYETHYLENE GLYCOL 17 GM PACKET GTB (08:53)
[2017-04-25] MEDS: FERROUS SULFATE 60 MG/ML 5ML CUP GTB (08:54)
[2017-04-25] MEDS: POTASSIUM CHLORIDE 20 MEQ POWDER FOR ORAL SOLN GTB (08:54)
[2017-04-25] MEDS: MULTIVITAMINS/MINERALS TAB GTB (08:54)
[2017-04-25] MEDS: LEVETIRACETAM (100 MG/ML) 5ML CUP GTB ×2 (08:54→21:08)
[2017-04-25] MEDS: LISINOPRIL 20 MG TAB GTB ×2 (08:54→21:09)
[2017-04-25] MEDS: SPIRONOLACTONE 25 MG TAB GTB (08:55)
[2017-04-25] MEDS: FAMOTIDINE 20 MG TAB GTB (08:55)
[2017-04-25] MEDS: AMIODARONE 200 MG TAB GTB (08:55)
[2017-04-25] MEDS: METOPROLOL 100 MG TAB GTB ×2 (08:55→21:10)
[2017-04-25] MEDS: DIGOXIN 0.125 MG TAB GTB (14:23)
[2017-04-25] MEDS: INSULIN GLARGINE [LANtus] 3 ML PEN SC (21:07)
[2017-04-25] MEDS: ATORVASTATIN 40 MG TAB GTB (21:09)
[2017-04-25] MEDS: SOD CHLORIDE 0.9% IVPB (23:31)
[2017-04-25] MEDS: VANCOMYCIN IVPB (23:31)
[2017-04-26] MEDS: ALBUTEROL/IPRATROPIUM (NEB) 3 ML AMP NEB ×4 (01:14→19:51)
[2017-04-26] MEDS: INSULIN ASPART [NOVOLOG] 3 ML PEN SC ×3 (05:23→17:32)
[2017-04-26] MEDS: FLUDROCORTISONE 0.1 MG TAB GTB ×3 (05:23→22:15)
[2017-04-26 06:40] LABS: ANION GAP 12 (8-16); BLOOD UREA NITROGEN 21 mg/dl (7-20); CARBON DIOXIDE 34 mmol/L (21-31); CHLORIDE 105 mmol/L (97-110); CREATININE 0.59 mg/dl (0.44-1.00); GLUCOSE 126 mg/dl (70-220); POTASSIUM 3.8 mmol/L (3.5-5.1); SODIUM 147 mmol/L (135-144)
[2017-04-26] MEDS: NYSTATIN SUSP 5 ML CUP PO ×4 (08:14→20:16)
[2017-04-26] MEDS: FERROUS SULFATE 60 MG/ML 5ML CUP GTB (08:14)
[2017-04-26] MEDS: POTASSIUM CHLORIDE 20 MEQ POWDER FOR ORAL SOLN GTB (08:14)
[2017-04-26] MEDS: POLYETHYLENE GLYCOL 17 GM PACKET GTB (08:14)
[2017-04-26] MEDS: LEVETIRACETAM (100 MG/ML) 5ML CUP GTB ×2 (08:15→20:15)
[2017-04-26] MEDS: SPIRONOLACTONE 25 MG TAB GTB (08:15)
[2017-04-26] MEDS: LISINOPRIL 20 MG TAB GTB ×2 (08:15→20:16)
[2017-04-26] MEDS: FAMOTIDINE 20 MG TAB GTB (08:15)
[2017-04-26] MEDS: AMIODARONE 200 MG TAB GTB (08:15)
[2017-04-26] MEDS: MEROPENEM 1 GM/50ML(PMX) 50 ML IVPB ×2 (08:16→20:15)
[2017-04-26] MEDS: MULTIVITAMINS/MINERALS TAB GTB (08:16)
[2017-04-26] MEDS: METOPROLOL 100 MG TAB GTB ×2 (08:16→20:16)
[2017-04-26] MEDS: DIGOXIN 0.125 MG TAB GTB (13:00)
[2017-04-26] MEDS: D5W + KCL 20 MEQ 1,000 ML IV ×2 (13:04→18:39)
[2017-04-26] MEDS: ATORVASTATIN 40 MG TAB GTB (20:15)
[2017-04-26] MEDS: INSULIN GLARGINE [LANtus] 3 ML PEN SC (20:21)
[2017-04-27 00:02] LABS: VANCOMYCIN,TROUGH 17.5 ug/ml (10.0-20.0)
[2017-04-27] MEDS: INSULIN ASPART [NOVOLOG] 3 ML PEN SC ×4 (00:35→17:18)
[2017-04-27] MEDS: VANCOMYCIN IVPB (01:01)
[2017-04-27] MEDS: SOD CHLORIDE 0.9% IVPB (01:01)
[2017-04-27] MEDS: ALBUTEROL/IPRATROPIUM (NEB) 3 ML AMP NEB ×4 (01:12→21:07)
[2017-04-27 06:04] LABS: ANION GAP 14 (8-16); BLOOD UREA NITROGEN 20 mg/dl (7-20); CARBON DIOXIDE 34 mmol/L (21-31); CHLORIDE 105 mmol/L (97-110); CREATININE 0.55 mg/dl (0.44-1.00); GLUCOSE 126 mg/dl (70-220); POTASSIUM 3.5 mmol/L (3.5-5.1); SODIUM 149 mmol/L (135-144)
[2017-04-27] MEDS: FLUDROCORTISONE 0.1 MG TAB GTB ×3 (06:12→22:54)
[2017-04-27] MEDS: D5W + KCL 20 MEQ 1,000 ML IV ×3 (06:40→23:20)
[2017-04-27] MEDS: SPIRONOLACTONE 25 MG TAB GTB (08:16)
[2017-04-27] MEDS: AMIODARONE 200 MG TAB GTB (08:16)
[2017-04-27] MEDS: FAMOTIDINE 20 MG TAB GTB (08:16)
[2017-04-27] MEDS: MULTIVITAMINS/MINERALS TAB GTB (08:16)
[2017-04-27] MEDS: POLYETHYLENE GLYCOL 17 GM PACKET GTB (08:17)
[2017-04-27] MEDS: POTASSIUM CHLORIDE 20 MEQ POWDER FOR ORAL SOLN GTB (08:17)
[2017-04-27] MEDS: LISINOPRIL 20 MG TAB GTB ×2 (08:17→20:46)
[2017-04-27] MEDS: METOPROLOL 100 MG TAB GTB ×2 (08:17→20:46)
[2017-04-27] MEDS: LEVETIRACETAM (100 MG/ML) 5ML CUP GTB ×2 (08:17→20:45)
[2017-04-27] MEDS: NYSTATIN SUSP 5 ML CUP PO ×4 (08:17→20:45)
[2017-04-27] MEDS: FERROUS SULFATE 60 MG/ML 5ML CUP GTB (08:17)
[2017-04-27] MEDS: MEROPENEM 1 GM/50ML(PMX) 50 ML IVPB ×2 (09:07→20:46)
[2017-04-27] MEDS: DIGOXIN 0.125 MG TAB GTB (12:14)
[2017-04-27] MEDS: ATORVASTATIN 40 MG TAB GTB (20:45)
[2017-04-27] MEDS: INSULIN GLARGINE [LANtus] 3 ML PEN SC (20:55)
[2017-04-28] MEDS: SOD CHLORIDE 0.9% IVPB (00:11)
[2017-04-28] MEDS: VANCOMYCIN IVPB (00:11)
[2017-04-28] MEDS: INSULIN ASPART [NOVOLOG] 3 ML PEN SC ×4 (00:12→17:37)
[2017-04-28] MEDS: ALBUTEROL/IPRATROPIUM (NEB) 3 ML AMP NEB ×4 (01:01→20:15)
[2017-04-28] MEDS: FLUDROCORTISONE 0.1 MG TAB GTB ×3 (05:58→22:22)
[2017-04-28 07:05] LABS: ANION GAP 15 (8-16); BLOOD UREA NITROGEN 20 mg/dl (7-20); CALCIUM 9.2 mg/dl (8.4-10.2); CARBON DIOXIDE 33 mmol/L (21-31); CHLORIDE 105 mmol/L (97-110); CREATININE 0.52 mg/dl (0.44-1.00); GLUCOSE 126 mg/dl (70-220); POTASSIUM 3.6 mmol/L (3.5-5.1); SODIUM 149 mmol/L (135-144)
[2017-04-28] MEDS: FERROUS SULFATE 60 MG/ML 5ML CUP GTB (09:03)
[2017-04-28] MEDS: LEVETIRACETAM (100 MG/ML) 5ML CUP GTB ×2 (09:03→22:20)
[2017-04-28] MEDS: POTASSIUM CHLORIDE 20 MEQ POWDER FOR ORAL SOLN GTB (09:04)
[2017-04-28] MEDS: NYSTATIN SUSP 5 ML CUP PO ×4 (09:04→22:21)
[2017-04-28] MEDS: LISINOPRIL 20 MG TAB GTB ×2 (09:05→22:23)
[2017-04-28] MEDS: METOPROLOL 100 MG TAB GTB ×2 (09:05→22:23)
[2017-04-28] MEDS: FAMOTIDINE 20 MG TAB GTB (09:06)
[2017-04-28] MEDS: MULTIVITAMINS/MINERALS TAB GTB (09:07)
[2017-04-28] MEDS: SPIRONOLACTONE 25 MG TAB GTB (09:07)
[2017-04-28] MEDS: AMIODARONE 200 MG TAB GTB (09:08)
[2017-04-28] MEDS: POLYETHYLENE GLYCOL 17 GM PACKET GTB (09:08)
[2017-04-28] MEDS: MEROPENEM 1 GM/50ML(PMX) 50 ML IVPB ×2 (09:12→22:19)
[2017-04-28] MEDS: DIGOXIN 0.125 MG TAB GTB (13:55)
[2017-04-28] MEDS: D5W + KCL 20 MEQ 1,000 ML IV ×2 (16:00→17:38)
[2017-04-28] MEDS: ACETAMINOPHEN 650MG/20.3ML CUP GTB (22:20)
[2017-04-28] MEDS: ATORVASTATIN 40 MG TAB GTB (22:23)
[2017-04-28] MEDS: INSULIN GLARGINE [LANtus] 3 ML PEN SC (22:52)
[2017-04-29] MEDS: SOD CHLORIDE 0.9% IVPB (00:42)
[2017-04-29] MEDS: VANCOMYCIN IVPB (00:42)
[2017-04-29] MEDS: INSULIN ASPART [NOVOLOG] 3 ML PEN SC ×4 (01:00→17:51)
[2017-04-29] MEDS: ALBUTEROL/IPRATROPIUM (NEB) 3 ML AMP NEB ×4 (01:28→19:10)
[2017-04-29] MEDS: FLUDROCORTISONE 0.1 MG TAB GTB ×3 (05:56→22:42)
[2017-04-29 06:07] LABS: ADD MAN DIFF? NO
[2017-04-29 06:10] LABS: BASOPHILS % 0.3 % (0.0-2.0); EOSINOPHILS # 0.1 10^3/ul (0.0-0.5); EOSINOPHILS % 1.6 % (0.0-7.0); HEMATOCRIT 32.1 % (37.0-47.0); HEMOGLOBIN 10.1 g/dl (12.0-16.0); LYMPHOCYTES # 1.7 10^3/ul (0.8-2.9); LYMPHOCYTES % 19.2 % (15.0-51.0); MEAN CORPUSCULAR HGB CONC 31.5 g/dl (32.0-37.0); MEAN CORPUSCULAR VOLUME 82.5 fl (82.0-101.0); MEAN PLATELET VOLUME 9.2 fl (7.4-10.4); MONOCYTE # 0.7 10^3/ul (0.3-0.9); MONOCYTES % 8.3 % (0.0-11.0); NEUTROPHILS % 69.9 % (39.0-77.0); PLATELET COUNT 202 10^3/UL (140-415); RED BLOOD COUNT 3.89 10^6/ul (4.20-5.40); RED CELL DISTRIBUTION WIDTH 14.3 % (11.5-14.5)
[2017-04-29 06:10] LABS: WHITE BLOOD COUNT 8.6 10^3/ul (4.8-10.8)
[2017-04-29 07:18] LABS: ANION GAP 12 (8-16); BLOOD UREA NITROGEN 19 mg/dl (7-20); CARBON DIOXIDE 35 mmol/L (21-31); CHLORIDE 105 mmol/L (97-110); CREATININE 0.56 mg/dl (0.44-1.00); GLUCOSE 106 mg/dl (70-220); POTASSIUM 3.9 mmol/L (3.5-5.1); SODIUM 148 mmol/L (135-144)
[2017-04-29] MEDS: D5W + KCL 20 MEQ 1,000 ML IV ×2 (08:40→23:15)
[2017-04-29] MEDS: SPIRONOLACTONE 25 MG TAB GTB (08:53)
[2017-04-29] MEDS: LEVETIRACETAM (100 MG/ML) 5ML CUP GTB ×2 (08:55→22:40)
[2017-04-29] MEDS: FERROUS SULFATE 60 MG/ML 5ML CUP GTB (08:55)
[2017-04-29] MEDS: AMIODARONE 200 MG TAB GTB (08:55)
[2017-04-29] MEDS: POLYETHYLENE GLYCOL 17 GM PACKET GTB (08:57)
[2017-04-29] MEDS: METOPROLOL 100 MG TAB GTB ×2 (08:57→22:42)
[2017-04-29] MEDS: FAMOTIDINE 20 MG TAB GTB (08:57)
[2017-04-29] MEDS: POTASSIUM CHLORIDE 20 MEQ POWDER FOR ORAL SOLN GTB (08:58)
[2017-04-29] MEDS: MEROPENEM 1 GM/50ML(PMX) 50 ML IVPB ×2 (08:58→22:40)
[2017-04-29] MEDS: NYSTATIN SUSP 5 ML CUP PO ×4 (08:58→22:40)
[2017-04-29] MEDS: MULTIVITAMINS/MINERALS TAB GTB (08:58)
[2017-04-29] MEDS: LISINOPRIL 20 MG TAB GTB ×2 (08:58→22:41)
[2017-04-29] MEDS: DIGOXIN 0.125 MG TAB GTB (13:23)
[2017-04-29] MEDS: ATORVASTATIN 40 MG TAB GTB (22:42)
[2017-04-29] MEDS: INSULIN GLARGINE [LANtus] 3 ML PEN SC (22:51)
[2017-04-30] MEDS: VANCOMYCIN IVPB ×2 (00:48→23:48)
[2017-04-30] MEDS: SOD CHLORIDE 0.9% IVPB ×2 (00:48→23:48)
[2017-04-30] MEDS: INSULIN ASPART [NOVOLOG] 3 ML PEN SC ×5 (00:55→23:46)
[2017-04-30] MEDS: ALBUTEROL/IPRATROPIUM (NEB) 3 ML AMP NEB ×4 (01:19→20:01)
[2017-04-30] MEDS: FLUDROCORTISONE 0.1 MG TAB GTB ×3 (06:22→21:20)
[2017-04-30 07:02] LABS: ANION GAP 10 (8-16); BLOOD UREA NITROGEN 19 mg/dl (7-20); CARBON DIOXIDE 35 mmol/L (21-31); CHLORIDE 105 mmol/L (97-110); CREATININE 0.55 mg/dl (0.44-1.00); GLUCOSE 124 mg/dl (70-220); POTASSIUM 3.5 mmol/L (3.5-5.1); SODIUM 146 mmol/L (135-144)
[2017-04-30] MEDS: SPIRONOLACTONE 25 MG TAB GTB (09:52)
[2017-04-30] MEDS: AMIODARONE 200 MG TAB GTB (09:53)
[2017-04-30] MEDS: FERROUS SULFATE 60 MG/ML 5ML CUP GTB (09:53)
[2017-04-30] MEDS: FAMOTIDINE 20 MG TAB GTB (09:54)
[2017-04-30] MEDS: POLYETHYLENE GLYCOL 17 GM PACKET GTB (09:54)
[2017-04-30] MEDS: METOPROLOL 100 MG TAB GTB ×2 (09:54→21:21)
[2017-04-30] MEDS: LEVETIRACETAM (100 MG/ML) 5ML CUP GTB ×2 (09:54→21:22)
[2017-04-30] MEDS: LISINOPRIL 20 MG TAB GTB ×2 (09:55→21:21)
[2017-04-30] MEDS: MULTIVITAMINS/MINERALS TAB GTB (09:55)
[2017-04-30] MEDS: POTASSIUM CHLORIDE 20 MEQ POWDER FOR ORAL SOLN GTB (09:55)
[2017-04-30] MEDS: MEROPENEM 1 GM/50ML(PMX) 50 ML IVPB ×2 (09:55→21:21)
[2017-04-30] MEDS: NYSTATIN SUSP 5 ML CUP PO ×4 (09:55→21:22)
[2017-04-30] MEDS: DIGOXIN 0.125 MG TAB GTB (13:59)
[2017-04-30] MEDS: D5W + KCL 20 MEQ 1,000 ML IV (18:00)
[2017-04-30] MEDS: ATORVASTATIN 40 MG TAB GTB (21:20)
[2017-04-30] MEDS: INSULIN GLARGINE [LANtus] 3 ML PEN SC (21:30)
[2017-04-30 23:31] LABS: VANCOMYCIN,TROUGH 17.1 ug/ml (10.0-20.0)
[2017-05-01] MEDS: ALBUTEROL/IPRATROPIUM (NEB) 3 ML AMP NEB ×4 (01:09→20:24)
[2017-05-01] MEDS: D5W + KCL 20 MEQ 1,000 ML IV ×3 (05:04→22:30)
[2017-05-01] MEDS: INSULIN ASPART [NOVOLOG] 3 ML PEN SC ×4 (05:11→23:28)
[2017-05-01] MEDS: FLUDROCORTISONE 0.1 MG TAB GTB ×3 (05:16→21:21)
[2017-05-01 06:42] LABS: ADD MAN DIFF? NO
[2017-05-01 06:44] LABS: BASOPHILS % 0.6 % (0.0-2.0); EOSINOPHILS # 0.2 10^3/ul (0.0-0.5); EOSINOPHILS % 2.9 % (0.0-7.0); HEMATOCRIT 32.1 % (37.0-47.0); HEMOGLOBIN 10.2 g/dl (12.0-16.0); LYMPHOCYTES # 1.4 10^3/ul (0.8-2.9); LYMPHOCYTES % 19.1 % (15.0-51.0); MEAN CORPUSCULAR HEMOGLOBIN 26.3 pg (29.0-33.0); MEAN CORPUSCULAR HGB CONC 31.8 g/dl (32.0-37.0); MEAN CORPUSCULAR VOLUME 82.7 fl (82.0-101.0); MEAN PLATELET VOLUME 8.7 fl (7.4-10.4); MONOCYTE # 0.6 10^3/ul (0.3-0.9); MONOCYTES % 8.4 % (0.0-11.0); PLATELET COUNT 187 10^3/UL (140-415); RED BLOOD COUNT 3.88 10^6/ul (4.20-5.40); RED CELL DISTRIBUTION WIDTH 14.1 % (11.5-14.5)
[2017-05-01 06:44] LABS: WHITE BLOOD COUNT 7.3 10^3/ul (4.8-10.8)
[2017-05-01 07:15] LABS: ANION GAP 10 (8-16); BLOOD UREA NITROGEN 20 mg/dl (7-20); CARBON DIOXIDE 35 mmol/L (21-31); CHLORIDE 104 mmol/L (97-110); CREATININE 0.59 mg/dl (0.44-1.00); GLUCOSE 130 mg/dl (70-220); POTASSIUM 3.9 mmol/L (3.5-5.1); SODIUM 145 mmol/L (135-144)
[2017-05-01] MEDS: POTASSIUM CHLORIDE 20 MEQ POWDER FOR ORAL SOLN GTB (08:51)
[2017-05-01] MEDS: FAMOTIDINE 20 MG TAB GTB (08:51)
[2017-05-01] MEDS: SPIRONOLACTONE 25 MG TAB GTB (08:51)
[2017-05-01] MEDS: MULTIVITAMINS/MINERALS TAB GTB (08:51)
[2017-05-01] MEDS: FERROUS SULFATE 60 MG/ML 5ML CUP GTB (08:52)
[2017-05-01] MEDS: LEVETIRACETAM (100 MG/ML) 5ML CUP GTB ×2 (08:52→21:20)
[2017-05-01] MEDS: METOPROLOL 100 MG TAB GTB ×2 (08:52→21:21)
[2017-05-01] MEDS: LISINOPRIL 20 MG TAB GTB ×2 (08:52→21:21)
[2017-05-01] MEDS: AMIODARONE 200 MG TAB GTB (08:52)
[2017-05-01] MEDS: NYSTATIN SUSP 5 ML CUP PO ×4 (08:52→21:20)
[2017-05-01] MEDS: POLYETHYLENE GLYCOL 17 GM PACKET GTB (09:25)
[2017-05-01] MEDS: MEROPENEM 1 GM/50ML(PMX) 50 ML IVPB ×2 (09:26→21:22)
[2017-05-01] MEDS: DIGOXIN 0.125 MG TAB GTB (12:09)
[2017-05-01] MEDS: hydrALAzine 20 MG INJ IV (17:13)
[2017-05-01] MEDS ORDERED: hydrALAzine 20 MG INJ IV (18:00)
[2017-05-01] MEDS: ATORVASTATIN 40 MG TAB GTB (21:21)
[2017-05-01] MEDS: INSULIN GLARGINE [LANtus] 3 ML PEN SC (21:33)
[2017-05-01] MEDS: SOD CHLORIDE 0.9% IVPB (23:22)
[2017-05-01] MEDS: VANCOMYCIN IVPB (23:22)
[2017-05-02] MEDS: ALBUTEROL/IPRATROPIUM (NEB) 3 ML AMP NEB ×4 (01:49→19:38)
[2017-05-02] MEDS: D5W + KCL 20 MEQ 1,000 ML IV ×3 (03:20→20:02)
[2017-05-02] MEDS: FLUDROCORTISONE 0.1 MG TAB GTB ×3 (05:22→23:00)
[2017-05-02 05:31] LABS: ADD MAN DIFF? NO
[2017-05-02] MEDS: INSULIN ASPART [NOVOLOG] 3 ML PEN SC ×3 (05:31→17:36)
[2017-05-02 05:33] LABS: BASOPHIL # 0.1 10^3/ul (0.0-0.1); BASOPHILS % 0.6 % (0.0-2.0); EOSINOPHILS # 0.2 10^3/ul (0.0-0.5); EOSINOPHILS % 2.8 % (0.0-7.0); HEMOGLOBIN 10.5 g/dl (12.0-16.0); LYMPHOCYTES # 1.3 10^3/ul (0.8-2.9); LYMPHOCYTES % 15.2 % (15.0-51.0); MEAN CORPUSCULAR HEMOGLOBIN 26.4 pg (29.0-33.0); MEAN CORPUSCULAR HGB CONC 31.8 g/dl (32.0-37.0); MEAN CORPUSCULAR VOLUME 82.9 fl (82.0-101.0); MONOCYTE # 0.7 10^3/ul (0.3-0.9); MONOCYTES % 8.2 % (0.0-11.0); NEUTROPHIL # 6.3 10^3/ul (1.6-7.5); NEUTROPHILS % 72.5 % (39.0-77.0); PLATELET COUNT 212 10^3/UL (140-415); RED BLOOD COUNT 3.98 10^6/ul (4.20-5.40)
[2017-05-02 05:33] LABS: WHITE BLOOD COUNT 8.7 10^3/ul (4.8-10.8)
[2017-05-02 06:20] LABS: ANION GAP 15 (8-16); BLOOD UREA NITROGEN 21 mg/dl (7-20); CALCIUM 9.2 mg/dl (8.4-10.2); CARBON DIOXIDE 34 mmol/L (21-31); CHLORIDE 104 mmol/L (97-110); CREATININE 0.56 mg/dl (0.44-1.00); GLUCOSE 147 mg/dl (70-220); POTASSIUM 3.4 mmol/L (3.5-5.1); SODIUM 150 mmol/L (135-144)
[2017-05-02] MEDS: POLYETHYLENE GLYCOL 17 GM PACKET GTB (09:46)
[2017-05-02] MEDS: POTASSIUM CHLORIDE 20 MEQ POWDER FOR ORAL SOLN GTB (09:46)
[2017-05-02] MEDS: FERROUS SULFATE 60 MG/ML 5ML CUP GTB (09:46)
[2017-05-02] MEDS: MULTIVITAMINS/MINERALS TAB GTB (09:47)
[2017-05-02] MEDS: FAMOTIDINE 20 MG TAB GTB (09:47)
[2017-05-02] MEDS: SPIRONOLACTONE 25 MG TAB GTB (09:47)
[2017-05-02] MEDS: LEVETIRACETAM (100 MG/ML) 5ML CUP GTB ×2 (09:47→23:01)
[2017-05-02] MEDS: NYSTATIN SUSP 5 ML CUP PO ×4 (09:47→23:02)
[2017-05-02] MEDS: LISINOPRIL 20 MG TAB GTB ×2 (09:49→23:00)
[2017-05-02] MEDS: AMIODARONE 200 MG TAB GTB (09:52)
[2017-05-02] MEDS: METOPROLOL 100 MG TAB GTB ×2 (09:52→23:01)
[2017-05-02] MEDS: MEROPENEM 1 GM/50ML(PMX) 50 ML IVPB ×2 (10:06→23:01)
[2017-05-02] MEDS: DIGOXIN 0.125 MG TAB GTB (12:02)
[2017-05-02] MEDS: ATORVASTATIN 40 MG TAB GTB (23:00)
[2017-05-02] MEDS: INSULIN GLARGINE [LANtus] 3 ML PEN SC (23:16)
[2017-05-03] MEDS: INSULIN ASPART [NOVOLOG] 3 ML PEN SC ×5 (00:53→23:15)
[2017-05-03] MEDS: ALBUTEROL/IPRATROPIUM (NEB) 3 ML AMP NEB ×4 (01:25→19:59)
[2017-05-03] MEDS: FLUDROCORTISONE 0.1 MG TAB GTB ×3 (06:55→21:19)
[2017-05-03 06:58] LABS: ANION GAP 12 (8-16); BLOOD UREA NITROGEN 24 mg/dl (7-20); CALCIUM 9.1 mg/dl (8.4-10.2); CARBON DIOXIDE 35 mmol/L (21-31); CHLORIDE 103 mmol/L (97-110); CREATININE 0.57 mg/dl (0.44-1.00); GLUCOSE 130 mg/dl (70-220); POTASSIUM 3.8 mmol/L (3.5-5.1); SODIUM 146 mmol/L (135-144)
[2017-05-03] MEDS: POLYETHYLENE GLYCOL 17 GM PACKET GTB (08:40)
[2017-05-03] MEDS: LEVETIRACETAM (100 MG/ML) 5ML CUP GTB ×2 (08:41→21:18)
[2017-05-03] MEDS: NYSTATIN SUSP 5 ML CUP PO ×4 (08:41→21:18)
[2017-05-03] MEDS: POTASSIUM CHLORIDE 20 MEQ POWDER FOR ORAL SOLN GTB (08:41)
[2017-05-03] MEDS: FERROUS SULFATE 60 MG/ML 5ML CUP GTB (08:42)
[2017-05-03] MEDS: LISINOPRIL 20 MG TAB GTB ×2 (08:42→21:20)
[2017-05-03] MEDS: DOXYCYCLINE 100 MG TAB GTB ×2 (08:42→21:18)
[2017-05-03] MEDS: FAMOTIDINE 20 MG TAB GTB (08:42)
[2017-05-03] MEDS: METOPROLOL 100 MG TAB GTB ×2 (08:43→21:19)
[2017-05-03] MEDS: SPIRONOLACTONE 25 MG TAB GTB (08:43)
[2017-05-03] MEDS: MULTIVITAMINS/MINERALS TAB GTB (08:44)
[2017-05-03] MEDS: AMIODARONE 200 MG TAB GTB (08:44)
[2017-05-03] MEDS: D5W + KCL 20 MEQ 1,000 ML IV ×2 (12:40→19:57)
[2017-05-03] MEDS: DIGOXIN 0.125 MG TAB GTB (12:43)
[2017-05-03] MEDS: ATORVASTATIN 40 MG TAB GTB (21:18)
[2017-05-03] MEDS: INSULIN GLARGINE [LANtus] 3 ML PEN SC (21:28)
[2017-05-04] MEDS: ALBUTEROL/IPRATROPIUM (NEB) 3 ML AMP NEB ×4 (01:49→19:16)
[2017-05-04] MEDS: FLUDROCORTISONE 0.1 MG TAB GTB ×3 (05:20→22:31)
[2017-05-04] MEDS: INSULIN ASPART [NOVOLOG] 3 ML PEN SC ×3 (05:29→17:57)
[2017-05-04 06:18] LABS: ANION GAP 13 (8-16); BLOOD UREA NITROGEN 18 mg/dl (7-20); CALCIUM 9.3 mg/dl (8.4-10.2); CARBON DIOXIDE 34 mmol/L (21-31); CHLORIDE 102 mmol/L (97-110); CREATININE 0.57 mg/dl (0.44-1.00); GLUCOSE 152 mg/dl (70-220); POTASSIUM 3.5 mmol/L (3.5-5.1); SODIUM 145 mmol/L (135-144)
[2017-05-04] MEDS: POLYETHYLENE GLYCOL 17 GM PACKET GTB (08:14)
[2017-05-04] MEDS: DOXYCYCLINE 100 MG TAB GTB ×2 (08:15→20:51)
[2017-05-04] MEDS: POTASSIUM CHLORIDE 20 MEQ POWDER FOR ORAL SOLN GTB (08:15)
[2017-05-04] MEDS: SPIRONOLACTONE 25 MG TAB GTB (08:16)
[2017-05-04] MEDS: METOPROLOL 100 MG TAB GTB ×2 (08:19→20:51)
[2017-05-04] MEDS: NYSTATIN SUSP 5 ML CUP PO ×2 (08:20→13:10)
[2017-05-04] MEDS: AMIODARONE 200 MG TAB GTB (08:20)
[2017-05-04] MEDS: FERROUS SULFATE 60 MG/ML 5ML CUP GTB (08:20)
[2017-05-04] MEDS: LISINOPRIL 20 MG TAB GTB ×2 (08:21→20:51)
[2017-05-04] MEDS: FAMOTIDINE 20 MG TAB GTB (08:21)
[2017-05-04] MEDS: LEVETIRACETAM (100 MG/ML) 5ML CUP GTB ×2 (08:22→20:51)
[2017-05-04] MEDS: MULTIVITAMINS/MINERALS TAB GTB (08:22)
[2017-05-04] MEDS: DIGOXIN 0.125 MG TAB GTB (13:21)
[2017-05-04] MEDS: D5W + KCL 20 MEQ 1,000 ML IV (14:12)
[2017-05-04] MEDS: ATORVASTATIN 40 MG TAB GTB (20:51)
[2017-05-04] MEDS: INSULIN GLARGINE [LANtus] 3 ML PEN SC (20:58)
[2017-05-05] MEDS: INSULIN ASPART [NOVOLOG] 3 ML PEN SC ×4 (00:40→17:46)
[2017-05-05] MEDS: ALBUTEROL/IPRATROPIUM (NEB) 3 ML AMP NEB ×4 (01:07→19:23)
[2017-05-05] MEDS: FLUDROCORTISONE 0.1 MG TAB GTB ×3 (05:57→22:45)
[2017-05-05 06:37] LABS: ANION GAP 12 (8-16); BLOOD UREA NITROGEN 18 mg/dl (7-20); CALCIUM 9.2 mg/dl (8.4-10.2); CARBON DIOXIDE 34 mmol/L (21-31); CHLORIDE 102 mmol/L (97-110); CREATININE 0.56 mg/dl (0.44-1.00); GLUCOSE 139 mg/dl (70-220); POTASSIUM 3.8 mmol/L (3.5-5.1); SODIUM 144 mmol/L (135-144)
[2017-05-05] MEDS: D5W + KCL 20 MEQ 1,000 ML IV ×2 (06:51→13:42)
[2017-05-05] MEDS: SPIRONOLACTONE 25 MG TAB GTB (08:41)
[2017-05-05] MEDS: AMIODARONE 200 MG TAB GTB (08:42)
[2017-05-05] MEDS: METOPROLOL 100 MG TAB GTB ×2 (08:43→20:49)
[2017-05-05] MEDS: POTASSIUM CHLORIDE 20 MEQ POWDER FOR ORAL SOLN GTB (08:44)
[2017-05-05] MEDS: MULTIVITAMINS/MINERALS TAB GTB (08:44)
[2017-05-05] MEDS: DOXYCYCLINE 100 MG TAB GTB ×2 (08:44→20:48)
[2017-05-05] MEDS: FAMOTIDINE 20 MG TAB GTB (08:44)
[2017-05-05] MEDS: FERROUS SULFATE 60 MG/ML 5ML CUP GTB (08:45)
[2017-05-05] MEDS: POLYETHYLENE GLYCOL 17 GM PACKET GTB (08:50)
[2017-05-05] MEDS: LISINOPRIL 20 MG TAB GTB ×2 (08:50→20:49)
[2017-05-05] MEDS: LEVETIRACETAM (100 MG/ML) 5ML CUP GTB ×2 (08:50→20:48)
[2017-05-05] MEDS: DIGOXIN 0.125 MG TAB GTB (12:20)
[2017-05-05] MEDS: ATORVASTATIN 40 MG TAB GTB (20:48)
[2017-05-05] MEDS: INSULIN GLARGINE [LANtus] 3 ML PEN SC (20:58)
[2017-05-06] MEDS: INSULIN ASPART [NOVOLOG] 3 ML PEN SC ×4 (00:20→17:29)
[2017-05-06] MEDS: ALBUTEROL/IPRATROPIUM (NEB) 3 ML AMP NEB ×4 (01:13→19:36)
[2017-05-06] MEDS: D5W + KCL 20 MEQ 1,000 ML IV ×3 (04:04→18:22)
[2017-05-06] MEDS: FLUDROCORTISONE 0.1 MG TAB GTB ×3 (05:23→22:32)
[2017-05-06 06:56] LABS: ANION GAP 12 (8-16); BLOOD UREA NITROGEN 18 mg/dl (7-20); CALCIUM 9.5 mg/dl (8.4-10.2); CARBON DIOXIDE 34 mmol/L (21-31); CHLORIDE 103 mmol/L (97-110); CREATININE 0.52 mg/dl (0.44-1.00); GLUCOSE 154 mg/dl (70-220); POTASSIUM 3.4 mmol/L (3.5-5.1); SODIUM 146 mmol/L (135-144)
[2017-05-06] MEDS: POLYETHYLENE GLYCOL 17 GM PACKET GTB (10:04)
[2017-05-06] MEDS: FERROUS SULFATE 60 MG/ML 5ML CUP GTB (10:04)
[2017-05-06] MEDS: POTASSIUM CHLORIDE 20 MEQ POWDER FOR ORAL SOLN GTB (10:04)
[2017-05-06] MEDS: FAMOTIDINE 20 MG TAB GTB (10:05)
[2017-05-06] MEDS: DOXYCYCLINE 100 MG TAB GTB ×2 (10:05→22:34)
[2017-05-06] MEDS: LEVETIRACETAM (100 MG/ML) 5ML CUP GTB ×2 (10:05→22:32)
[2017-05-06] MEDS: MULTIVITAMINS/MINERALS TAB GTB (10:05)
[2017-05-06] MEDS: METOPROLOL 100 MG TAB GTB ×2 (10:06→22:34)
[2017-05-06] MEDS: AMIODARONE 200 MG TAB GTB (10:06)
[2017-05-06] MEDS: SPIRONOLACTONE 25 MG TAB GTB (10:06)
[2017-05-06] MEDS: LISINOPRIL 20 MG TAB GTB ×2 (10:07→22:34)
[2017-05-06] MEDS: DIGOXIN 0.125 MG TAB GTB (12:36)
[2017-05-06] MEDS: ATORVASTATIN 40 MG TAB GTB (22:33)
[2017-05-06] MEDS: INSULIN GLARGINE [LANtus] 3 ML PEN SC (22:47)
[2017-05-07] MEDS: INSULIN ASPART [NOVOLOG] 3 ML PEN SC ×5 (01:15→23:41)
[2017-05-07] MEDS: ALBUTEROL/IPRATROPIUM (NEB) 3 ML AMP NEB ×4 (01:31→19:40)
[2017-05-07] MEDS: FLUDROCORTISONE 0.1 MG TAB GTB ×3 (06:21→21:42)
[2017-05-07 06:54] LABS: ANION GAP 13 (8-16); BLOOD UREA NITROGEN 19 mg/dl (7-20); CALCIUM 9.5 mg/dl (8.4-10.2); CARBON DIOXIDE 33 mmol/L (21-31); CHLORIDE 101 mmol/L (97-110); CREATININE 0.59 mg/dl (0.44-1.00); GLUCOSE 156 mg/dl (70-220); SODIUM 143 mmol/L (135-144)
[2017-05-07] MEDS: POTASSIUM CHLORIDE 20 MEQ POWDER FOR ORAL SOLN GTB (10:14)
[2017-05-07] MEDS: DOXYCYCLINE 100 MG TAB GTB ×2 (10:14→20:39)
[2017-05-07] MEDS: FAMOTIDINE 20 MG TAB GTB (10:14)
[2017-05-07] MEDS: POLYETHYLENE GLYCOL 17 GM PACKET GTB (10:14)
[2017-05-07] MEDS: FERROUS SULFATE 60 MG/ML 5ML CUP GTB (10:14)
[2017-05-07] MEDS: LEVETIRACETAM (100 MG/ML) 5ML CUP GTB ×2 (10:14→20:39)
[2017-05-07] MEDS: METOPROLOL 100 MG TAB GTB ×2 (10:15→20:40)
[2017-05-07] MEDS: LISINOPRIL 20 MG TAB GTB ×2 (10:15→20:40)
[2017-05-07] MEDS: MULTIVITAMINS/MINERALS TAB GTB (10:16)
[2017-05-07] MEDS: SPIRONOLACTONE 25 MG TAB GTB (10:16)
[2017-05-07] MEDS: AMIODARONE 200 MG TAB GTB (10:16)
[2017-05-07] MEDS: D5W + KCL 20 MEQ 1,000 ML IV (10:31)
[2017-05-07] MEDS: DIGOXIN 0.125 MG TAB GTB (12:21)
[2017-05-07] MEDS: ATORVASTATIN 40 MG TAB GTB (20:39)
[2017-05-07] MEDS: INSULIN GLARGINE [LANtus] 3 ML PEN SC (20:49)
[2017-05-08] MEDS: ALBUTEROL/IPRATROPIUM (NEB) 3 ML AMP NEB ×4 (02:29→20:08)
[2017-05-08] MEDS: D5W + KCL 20 MEQ 1,000 ML IV ×3 (03:30→20:35)
[2017-05-08] MEDS: FLUDROCORTISONE 0.1 MG TAB GTB ×3 (05:39→22:26)
[2017-05-08] MEDS: INSULIN ASPART [NOVOLOG] 3 ML PEN SC ×4 (05:41→23:54)
[2017-05-08 06:28] LABS: ANION GAP 11 (8-16); BLOOD UREA NITROGEN 19 mg/dl (7-20); CALCIUM 9.4 mg/dl (8.4-10.2); CARBON DIOXIDE 34 mmol/L (21-31); CHLORIDE 103 mmol/L (97-110); GLUCOSE 144 mg/dl (70-220); POTASSIUM 4.1 mmol/L (3.5-5.1); SODIUM 144 mmol/L (135-144)
[2017-05-08] MEDS: FERROUS SULFATE 60 MG/ML 5ML CUP GTB (09:11)
[2017-05-08] MEDS: POLYETHYLENE GLYCOL 17 GM PACKET GTB (09:11)
[2017-05-08] MEDS: DOXYCYCLINE 100 MG TAB GTB ×2 (09:11→20:31)
[2017-05-08] MEDS: MULTIVITAMINS/MINERALS TAB GTB (09:11)
[2017-05-08] MEDS: POTASSIUM CHLORIDE 20 MEQ POWDER FOR ORAL SOLN GTB (09:11)
[2017-05-08] MEDS: SPIRONOLACTONE 25 MG TAB GTB (09:11)
[2017-05-08] MEDS: FAMOTIDINE 20 MG TAB GTB (09:11)
[2017-05-08] MEDS: LEVETIRACETAM (100 MG/ML) 5ML CUP GTB ×2 (09:11→20:29)
[2017-05-08] MEDS: METOPROLOL 100 MG TAB GTB ×2 (09:12→20:31)
[2017-05-08] MEDS: AMIODARONE 200 MG TAB GTB (09:13)
[2017-05-08] MEDS: LISINOPRIL 20 MG TAB GTB ×2 (09:13→20:31)
[2017-05-08] MEDS: DIGOXIN 0.125 MG TAB GTB (13:07)
[2017-05-08] MEDS: ATORVASTATIN 40 MG TAB GTB (20:30)
[2017-05-08] MEDS: INSULIN GLARGINE [LANtus] 3 ML PEN SC (20:45)
[2017-05-09] MEDS: ALBUTEROL/IPRATROPIUM (NEB) 3 ML AMP NEB ×4 (01:24→19:35)
[2017-05-09] MEDS: D5W + KCL 20 MEQ 1,000 ML IV ×2 (02:00→15:04)
[2017-05-09 06:01] LABS: ADD MAN DIFF? NO
[2017-05-09 06:07] LABS: WHITE BLOOD COUNT 12.5 10^3/ul (4.8-10.8)
[2017-05-09 06:07] LABS: BASOPHIL # 0.1 10^3/ul (0.0-0.1); BASOPHILS % 0.6 % (0.0-2.0); EOSINOPHILS # 0.2 10^3/ul (0.0-0.5); EOSINOPHILS % 1.4 % (0.0-7.0); HEMATOCRIT 35.1 % (37.0-47.0); HEMOGLOBIN 11.3 g/dl (12.0-16.0); LYMPHOCYTES # 1.9 10^3/ul (0.8-2.9); MEAN CORPUSCULAR HEMOGLOBIN 26.4 pg (29.0-33.0); MEAN CORPUSCULAR HGB CONC 32.2 g/dl (32.0-37.0); MONOCYTES % 8.1 % (0.0-11.0); NEUTROPHIL # 9.2 10^3/ul (1.6-7.5); NEUTROPHILS % 73.9 % (39.0-77.0); PLATELET COUNT 247 10^3/UL (140-415); RED BLOOD COUNT 4.28 10^6/ul (4.20-5.40)
[2017-05-09] MEDS: FLUDROCORTISONE 0.1 MG TAB GTB ×3 (06:34→23:09)
[2017-05-09] MEDS: INSULIN ASPART [NOVOLOG] 3 ML PEN SC ×4 (06:42→23:22)
[2017-05-09 06:43] LABS: ANION GAP 15 (8-16); BLOOD UREA NITROGEN 19 mg/dl (7-20); CALCIUM 9.5 mg/dl (8.4-10.2); CARBON DIOXIDE 32 mmol/L (21-31); CHLORIDE 100 mmol/L (97-110); CREATININE 0.64 mg/dl (0.44-1.00); GLUCOSE 159 mg/dl (70-220); POTASSIUM 4.4 mmol/L (3.5-5.1); SODIUM 143 mmol/L (135-144)
[2017-05-09] MEDS: LISINOPRIL 20 MG TAB GTB ×2 (09:00→20:22)
[2017-05-09] MEDS: METOPROLOL 100 MG TAB GTB ×2 (09:00→20:22)
[2017-05-09] MEDS: POTASSIUM CHLORIDE 20 MEQ POWDER FOR ORAL SOLN GTB (09:33)
[2017-05-09] MEDS: SPIRONOLACTONE 25 MG TAB GTB (09:33)
[2017-05-09] MEDS: AMIODARONE 200 MG TAB GTB (09:33)
[2017-05-09] MEDS: DOXYCYCLINE 100 MG TAB GTB ×2 (09:33→20:23)
[2017-05-09] MEDS: MULTIVITAMINS/MINERALS TAB GTB (09:33)
[2017-05-09] MEDS: FAMOTIDINE 20 MG TAB GTB (09:33)
[2017-05-09] MEDS: FERROUS SULFATE 60 MG/ML 5ML CUP GTB (09:34)
[2017-05-09] MEDS: POLYETHYLENE GLYCOL 17 GM PACKET GTB (09:34)
[2017-05-09] MEDS: LEVETIRACETAM (100 MG/ML) 5ML CUP GTB ×2 (09:34→20:21)
[2017-05-09 11:35] LABS: LACTIC ACID 1.6 mmol/L (0.5-2.0)
[2017-05-09 12:27] LABS: ADD UMIC YES; UR ASCORBIC ACID NEGATIVE (NEGATIVE); UR BACTERIA FEW /HPF (NONE SEEN); UR BILIRUBIN (Dip) NEGATIVE (NEGATIVE); UR BLOOD (Dip) 1+ mg/dL (NEGATIVE); UR BUDDING YEAST MODERATE /HPF (NONE SEEN); UR CLARITY SLIGHTLY CLOUDY (CLEAR); UR COLOR YELLOW (YELLOW); UR GLUCOSE (Dip) NEGATIVE (NEGATIVE); UR KETONES (Dip) NEGATIVE (NEGATIVE); UR LEUKOCYTE ESTERASE (Dip) 3+ Leu/ul (NEGATIVE); UR NITRITE (Dip) NEGATIVE (NEGATIVE); UR RBC 0 /HPF (0-5); UR SPECIFIC GRAVITY (Dip) 1.003 (1.003-1.030); UR TOTAL PROTEIN (Dip) NEGATIVE (NEGATIVE); UR UROBILINOGEN (Dip) NEGATIVE (NEGATIVE); UR WBC 85 /HPF (0-5)
[2017-05-09] MEDS: DIGOXIN 0.125 MG TAB GTB (12:59)
[2017-05-09] MEDS: ATORVASTATIN 40 MG TAB GTB (20:21)
[2017-05-09] MEDS: INSULIN GLARGINE [LANtus] 3 ML PEN SC (20:37)
[2017-05-10] MEDS: ALBUTEROL/IPRATROPIUM (NEB) 3 ML AMP NEB ×4 (01:11→19:36)
[2017-05-10 05:17] LABS: ADD MAN DIFF? NO
[2017-05-10 05:23] LABS: BASOPHIL # 0.1 10^3/ul (0.0-0.1); BASOPHILS % 0.5 % (0.0-2.0); EOSINOPHILS # 0.2 10^3/ul (0.0-0.5); EOSINOPHILS % 1.6 % (0.0-7.0); HEMATOCRIT 33.6 % (37.0-47.0); LYMPHOCYTES # 1.3 10^3/ul (0.8-2.9); LYMPHOCYTES % 11.9 % (15.0-51.0); MEAN CORPUSCULAR HEMOGLOBIN 26.6 pg (29.0-33.0); MEAN CORPUSCULAR HGB CONC 32.7 g/dl (32.0-37.0); MEAN CORPUSCULAR VOLUME 81.2 fl (82.0-101.0); MEAN PLATELET VOLUME 8.6 fl (7.4-10.4); MONOCYTE # 0.8 10^3/ul (0.3-0.9); MONOCYTES % 7.6 % (0.0-11.0); NEUTROPHIL # 8.2 10^3/ul (1.6-7.5); NEUTROPHILS % 77.5 % (39.0-77.0); PLATELET COUNT 229 10^3/UL (140-415); RED BLOOD COUNT 4.14 10^6/ul (4.20-5.40); RED CELL DISTRIBUTION WIDTH 14.1 % (11.5-14.5)
[2017-05-10 05:23] LABS: WHITE BLOOD COUNT 10.6 10^3/ul (4.8-10.8)
[2017-05-10 05:53] LABS: ANION GAP 15 (8-16); BLOOD UREA NITROGEN 20 mg/dl (7-20); CALCIUM 9.3 mg/dl (8.4-10.2); CARBON DIOXIDE 31 mmol/L (21-31); CHLORIDE 101 mmol/L (97-110); CREATININE 0.63 mg/dl (0.44-1.00); GLUCOSE 176 mg/dl (70-220); POTASSIUM 4.3 mmol/L (3.5-5.1); SODIUM 143 mmol/L (135-144)
[2017-05-10] MEDS: FLUDROCORTISONE 0.1 MG TAB GTB ×3 (06:23→22:46)
[2017-05-10] MEDS: INSULIN ASPART [NOVOLOG] 3 ML PEN SC ×3 (06:28→18:33)
[2017-05-10] MEDS: D5W + KCL 20 MEQ 1,000 ML IV ×2 (10:48→11:20)
[2017-05-10] MEDS: POTASSIUM CHLORIDE 20 MEQ POWDER FOR ORAL SOLN GTB (10:52)
[2017-05-10] MEDS: POLYETHYLENE GLYCOL 17 GM PACKET GTB (10:52)
[2017-05-10] MEDS: FERROUS SULFATE 60 MG/ML 5ML CUP GTB (10:53)
[2017-05-10] MEDS: FAMOTIDINE 20 MG TAB GTB (10:53)
[2017-05-10] MEDS: MULTIVITAMINS/MINERALS TAB GTB (10:53)
[2017-05-10] MEDS: AMIODARONE 200 MG TAB GTB (10:53)
[2017-05-10] MEDS: LEVETIRACETAM (100 MG/ML) 5ML CUP GTB ×2 (10:53→21:01)
[2017-05-10] MEDS: DOXYCYCLINE 100 MG TAB GTB ×2 (10:53→21:01)
[2017-05-10] MEDS: SPIRONOLACTONE 25 MG TAB GTB (10:53)
[2017-05-10] MEDS: LISINOPRIL 20 MG TAB GTB ×2 (10:54→21:08)
[2017-05-10] MEDS: METOPROLOL 100 MG TAB GTB ×2 (10:54→21:09)
[2017-05-10] MEDS: DIGOXIN 0.125 MG TAB GTB (15:36)
[2017-05-10] MEDS: ATORVASTATIN 40 MG TAB GTB (21:01)
[2017-05-10] MEDS: INSULIN GLARGINE [LANtus] 3 ML PEN SC (21:08)
[2017-05-11] MEDS: INSULIN ASPART [NOVOLOG] 3 ML PEN SC ×4 (00:15→18:23)
[2017-05-11] MEDS: ALBUTEROL/IPRATROPIUM (NEB) 3 ML AMP NEB ×4 (01:22→20:02)
[2017-05-11] MEDS: FLUDROCORTISONE 0.1 MG TAB GTB ×3 (05:39→21:37)
[2017-05-11 06:18] LABS: ADD MAN DIFF? NO
[2017-05-11 06:26] LABS: WHITE BLOOD COUNT 9.8 10^3/ul (4.8-10.8)
[2017-05-11 06:26] LABS: BASOPHILS % 0.4 % (0.0-2.0); EOSINOPHILS # 0.3 10^3/ul (0.0-0.5); EOSINOPHILS % 2.6 % (0.0-7.0); HEMATOCRIT 31.7 % (37.0-47.0); HEMOGLOBIN 10.2 g/dl (12.0-16.0); LYMPHOCYTES # 1.7 10^3/ul (0.8-2.9); LYMPHOCYTES % 16.8 % (15.0-51.0); MEAN CORPUSCULAR HEMOGLOBIN 26.1 pg (29.0-33.0); MEAN CORPUSCULAR HGB CONC 32.2 g/dl (32.0-37.0); MEAN CORPUSCULAR VOLUME 81.1 fl (82.0-101.0); MONOCYTE # 0.8 10^3/ul (0.3-0.9); MONOCYTES % 7.7 % (0.0-11.0); NEUTROPHILS % 71.4 % (39.0-77.0); PLATELET COUNT 232 10^3/UL (140-415); RED BLOOD COUNT 3.91 10^6/ul (4.20-5.40); RED CELL DISTRIBUTION WIDTH 14.5 % (11.5-14.5)
[2017-05-11 06:56] LABS: ANION GAP 13 (8-16); BLOOD UREA NITROGEN 24 mg/dl (7-20); CALCIUM 9.3 mg/dl (8.4-10.2); CARBON DIOXIDE 33 mmol/L (21-31); CHLORIDE 100 mmol/L (97-110); CREATININE 0.65 mg/dl (0.44-1.00); GLUCOSE 146 mg/dl (70-220); POTASSIUM 4.2 mmol/L (3.5-5.1); SODIUM 142 mmol/L (135-144)
[2017-05-11] MEDS: POLYETHYLENE GLYCOL 17 GM PACKET GTB (09:01)
[2017-05-11] MEDS: FAMOTIDINE 20 MG TAB GTB (09:01)
[2017-05-11] MEDS: FERROUS SULFATE 60 MG/ML 5ML CUP GTB (09:01)
[2017-05-11] MEDS: LEVETIRACETAM (100 MG/ML) 5ML CUP GTB ×2 (09:01→21:37)
[2017-05-11] MEDS: POTASSIUM CHLORIDE 20 MEQ POWDER FOR ORAL SOLN GTB (09:01)
[2017-05-11] MEDS: METOPROLOL 100 MG TAB GTB ×2 (09:02→21:41)
[2017-05-11] MEDS: SPIRONOLACTONE 25 MG TAB GTB (09:02)
[2017-05-11] MEDS: LISINOPRIL 20 MG TAB GTB ×2 (09:02→21:40)
[2017-05-11] MEDS: MULTIVITAMINS/MINERALS TAB GTB (09:02)
[2017-05-11] MEDS: AMIODARONE 200 MG TAB GTB (09:03)
[2017-05-11] MEDS: DOXYCYCLINE 100 MG TAB GTB ×2 (09:04→21:37)
[2017-05-11] MEDS: MEROPENEM 1 GM/50ML(PMX) 50 ML IVPB ×3 (15:01→22:51)
[2017-05-11] MEDS: DIGOXIN 0.125 MG TAB GTB (15:03)
[2017-05-11] MEDS: ATORVASTATIN 40 MG TAB GTB (21:37)
[2017-05-11] MEDS: INSULIN GLARGINE [LANtus] 3 ML PEN SC (21:42)
[2017-05-12] MEDS: INSULIN ASPART [NOVOLOG] 3 ML PEN SC ×4 (00:05→18:07)
[2017-05-12] MEDS: ALBUTEROL/IPRATROPIUM (NEB) 3 ML AMP NEB ×4 (01:24→21:09)
[2017-05-12] MEDS: MEROPENEM 1 GM/50ML(PMX) 50 ML IVPB ×2 (05:37→14:00)
[2017-05-12] MEDS: FLUDROCORTISONE 0.1 MG TAB GTB ×3 (05:37→22:11)
[2017-05-12 05:39] LABS: ADD MAN DIFF? NO
[2017-05-12 05:45] LABS: WHITE BLOOD COUNT 8.7 10^3/ul (4.8-10.8)
[2017-05-12 05:45] LABS: BASOPHILS % 0.5 % (0.0-2.0); EOSINOPHILS # 0.2 10^3/ul (0.0-0.5); EOSINOPHILS % 2.7 % (0.0-7.0); HEMATOCRIT 31.7 % (37.0-47.0); HEMOGLOBIN 10.4 g/dl (12.0-16.0); LYMPHOCYTES # 1.1 10^3/ul (0.8-2.9); MEAN CORPUSCULAR HEMOGLOBIN 26.5 pg (29.0-33.0); MEAN CORPUSCULAR HGB CONC 32.8 g/dl (32.0-37.0); MEAN CORPUSCULAR VOLUME 80.7 fl (82.0-101.0); MONOCYTE # 0.8 10^3/ul (0.3-0.9); MONOCYTES % 8.6 % (0.0-11.0); NEUTROPHIL # 6.5 10^3/ul (1.6-7.5); NEUTROPHILS % 73.8 % (39.0-77.0); PLATELET COUNT 217 10^3/UL (140-415); RED BLOOD COUNT 3.93 10^6/ul (4.20-5.40); RED CELL DISTRIBUTION WIDTH 14.2 % (11.5-14.5)
[2017-05-12 06:25] LABS: ANION GAP 14 (8-16); BLOOD UREA NITROGEN 29 mg/dl (7-20); CALCIUM 9.5 mg/dl (8.4-10.2); CARBON DIOXIDE 33 mmol/L (21-31); CHLORIDE 101 mmol/L (97-110); CREATININE 0.65 mg/dl (0.44-1.00); GLUCOSE 143 mg/dl (70-220); POTASSIUM 4.1 mmol/L (3.5-5.1); SODIUM 144 mmol/L (135-144)
[2017-05-12] MEDS: POTASSIUM CHLORIDE 20 MEQ POWDER FOR ORAL SOLN GTB (08:30)
[2017-05-12] MEDS: LEVETIRACETAM (100 MG/ML) 5ML CUP GTB ×2 (08:30→22:10)
[2017-05-12] MEDS: FERROUS SULFATE 60 MG/ML 5ML CUP GTB (08:30)
[2017-05-12] MEDS: POLYETHYLENE GLYCOL 17 GM PACKET GTB (08:30)
[2017-05-12] MEDS: AMIODARONE 200 MG TAB GTB (08:31)
[2017-05-12] MEDS: LISINOPRIL 20 MG TAB GTB ×2 (08:31→22:11)
[2017-05-12] MEDS: SPIRONOLACTONE 25 MG TAB GTB (08:31)
[2017-05-12] MEDS: FAMOTIDINE 20 MG TAB GTB (08:31)
[2017-05-12] MEDS: DOXYCYCLINE 100 MG TAB GTB ×2 (08:32→22:11)
[2017-05-12] MEDS: METOPROLOL 100 MG TAB GTB ×2 (08:32→22:11)
[2017-05-12] MEDS: MULTIVITAMINS/MINERALS TAB GTB (08:32)
[2017-05-12 12:58] LABS: PROCALCITONIN 0.16 ng/mL (<0.10)
[2017-05-12] MEDS: DIGOXIN 0.125 MG TAB GTB (14:42)
[2017-05-12] MEDS: ATORVASTATIN 40 MG TAB GTB (22:12)
[2017-05-12] MEDS: CEFTAZIDIME 1GM/50 ML (PMX) 50 ML IVPB (22:23)
[2017-05-12] MEDS: INSULIN GLARGINE [LANtus] 3 ML PEN SC (22:32)
[2017-05-13] MEDS: INSULIN ASPART [NOVOLOG] 3 ML PEN SC ×4 (00:48→18:06)
[2017-05-13] MEDS: ALBUTEROL/IPRATROPIUM (NEB) 3 ML AMP NEB ×4 (02:44→19:38)
[2017-05-13] MEDS: FLUDROCORTISONE 0.1 MG TAB GTB ×3 (05:22→22:33)
[2017-05-13 05:28] LABS: ADD MAN DIFF? NO
[2017-05-13 05:37] LABS: BASOPHILS % 0.5 % (0.0-2.0); EOSINOPHILS # 0.3 10^3/ul (0.0-0.5); EOSINOPHILS % 2.9 % (0.0-7.0); HEMOGLOBIN 10.4 g/dl (12.0-16.0); LYMPHOCYTES # 1.1 10^3/ul (0.8-2.9); LYMPHOCYTES % 12.6 % (15.0-51.0); MEAN CORPUSCULAR HEMOGLOBIN 26.3 pg (29.0-33.0); MEAN CORPUSCULAR HGB CONC 32.5 g/dl (32.0-37.0); MEAN PLATELET VOLUME 8.9 fl (7.4-10.4); MONOCYTE # 0.7 10^3/ul (0.3-0.9); NEUTROPHIL # 6.4 10^3/ul (1.6-7.5); NEUTROPHILS % 74.8 % (39.0-77.0); PLATELET COUNT 237 10^3/UL (140-415); RED BLOOD COUNT 3.95 10^6/ul (4.20-5.40); RED CELL DISTRIBUTION WIDTH 14.3 % (11.5-14.5)
[2017-05-13 05:37] LABS: WHITE BLOOD COUNT 8.6 10^3/ul (4.8-10.8)
[2017-05-13 06:47] LABS: ALANINE AMINOTRANSFERASE 65 IU/L (13-69); ALBUMIN 3.5 g/dl (3.3-4.9); ALBUMIN/GLOBULIN RATIO 1.25; ALKALINE PHOSPHATASE 113 IU/L (42-121); ANION GAP 13 (8-16); ASPARTATE AMINO TRANSFERASE 26 IU/L (15-46); BLOOD UREA NITROGEN 29 mg/dl (7-20); CALCIUM 9.5 mg/dl (8.4-10.2); CARBON DIOXIDE 34 mmol/L (21-31); CHLORIDE 100 mmol/L (97-110); CREATININE 0.69 mg/dl (0.44-1.00); GLUCOSE 127 mg/dl (70-220); POTASSIUM 3.9 mmol/L (3.5-5.1); SODIUM 143 mmol/L (135-144); TOTAL PROTEIN 6.3 g/dl (6.1-8.1)
[2017-05-13] MEDS: FERROUS SULFATE 60 MG/ML 5ML CUP GTB (09:00)
[2017-05-13] MEDS: LEVETIRACETAM (100 MG/ML) 5ML CUP GTB ×2 (09:00→20:42)
[2017-05-13] MEDS: POLYETHYLENE GLYCOL 17 GM PACKET GTB (09:00)
[2017-05-13] MEDS: AMIODARONE 200 MG TAB GTB (09:01)
[2017-05-13] MEDS: LISINOPRIL 20 MG TAB GTB ×2 (09:01→20:43)
[2017-05-13] MEDS: SPIRONOLACTONE 25 MG TAB GTB (09:01)
[2017-05-13] MEDS: METOPROLOL 100 MG TAB GTB ×2 (09:02→20:43)
[2017-05-13] MEDS: MULTIVITAMINS/MINERALS TAB GTB (09:02)
[2017-05-13] MEDS: DOXYCYCLINE 100 MG TAB GTB ×2 (09:02→20:42)
[2017-05-13] MEDS: FAMOTIDINE 20 MG TAB GTB (09:02)
[2017-05-13] MEDS: CEFTAZIDIME 1GM/50 ML (PMX) 50 ML IVPB ×2 (09:03→20:42)
[2017-05-13] MEDS: POTASSIUM CHLORIDE 20 MEQ POWDER FOR ORAL SOLN GTB (09:03)
[2017-05-13] MEDS: DIGOXIN 0.125 MG TAB GTB (13:31)
[2017-05-13] MEDS: ATORVASTATIN 40 MG TAB GTB (20:42)
[2017-05-13] MEDS: INSULIN GLARGINE [LANtus] 3 ML PEN SC (20:45)
[2017-05-14] MEDS: INSULIN ASPART [NOVOLOG] 3 ML PEN SC ×5 (00:34→23:52)
[2017-05-14] MEDS: ALBUTEROL/IPRATROPIUM (NEB) 3 ML AMP NEB ×4 (01:26→19:36)
[2017-05-14] MEDS: FLUDROCORTISONE 0.1 MG TAB GTB ×3 (06:11→21:10)
[2017-05-14] MEDS: FERROUS SULFATE 60 MG/ML 5ML CUP GTB (08:28)
[2017-05-14] MEDS: DOXYCYCLINE 100 MG TAB GTB ×2 (08:29→21:01)
[2017-05-14] MEDS: LEVETIRACETAM (100 MG/ML) 5ML CUP GTB ×2 (08:29→21:01)
[2017-05-14] MEDS: POTASSIUM CHLORIDE 20 MEQ POWDER FOR ORAL SOLN GTB (08:29)
[2017-05-14] MEDS: POLYETHYLENE GLYCOL 17 GM PACKET GTB (08:29)
[2017-05-14] MEDS: AMIODARONE 200 MG TAB GTB (08:30)
[2017-05-14] MEDS: SPIRONOLACTONE 25 MG TAB GTB (08:30)
[2017-05-14] MEDS: FAMOTIDINE 20 MG TAB GTB (08:30)
[2017-05-14] MEDS: LISINOPRIL 20 MG TAB GTB ×2 (08:30→21:00)
[2017-05-14] MEDS: MULTIVITAMINS/MINERALS TAB GTB (08:31)
[2017-05-14] MEDS: CEFTAZIDIME 1GM/50 ML (PMX) 50 ML IVPB ×2 (08:31→21:10)
[2017-05-14] MEDS: METOPROLOL 100 MG TAB GTB ×2 (08:31→21:00)
[2017-05-14] MEDS: DIGOXIN 0.125 MG TAB GTB (13:37)
[2017-05-14] MEDS: ATORVASTATIN 40 MG TAB GTB (21:01)
[2017-05-14] MEDS: INSULIN GLARGINE [LANtus] 3 ML PEN SC (21:20)
[2017-05-15] MEDS: ALBUTEROL/IPRATROPIUM (NEB) 3 ML AMP NEB ×4 (01:20→19:11)
[2017-05-15] MEDS: INSULIN ASPART [NOVOLOG] 3 ML PEN SC ×3 (05:14→17:56)
[2017-05-15] MEDS: FLUDROCORTISONE 0.1 MG TAB GTB ×3 (05:16→21:10)
[2017-05-15] MEDS: DOXYCYCLINE 100 MG TAB GTB ×2 (08:55→21:09)
[2017-05-15] MEDS: SPIRONOLACTONE 25 MG TAB GTB (08:56)
[2017-05-15] MEDS: LISINOPRIL 20 MG TAB GTB ×2 (08:56→21:10)
[2017-05-15] MEDS: POTASSIUM CHLORIDE 20 MEQ POWDER FOR ORAL SOLN GTB (08:56)
[2017-05-15] MEDS: METOPROLOL 100 MG TAB GTB ×2 (08:56→21:11)
[2017-05-15] MEDS: MULTIVITAMINS/MINERALS TAB GTB (08:56)
[2017-05-15] MEDS: AMIODARONE 200 MG TAB GTB (08:57)
[2017-05-15] MEDS: FERROUS SULFATE 60 MG/ML 5ML CUP GTB (08:57)
[2017-05-15] MEDS: POLYETHYLENE GLYCOL 17 GM PACKET GTB (08:57)
[2017-05-15] MEDS: LEVETIRACETAM (100 MG/ML) 5ML CUP GTB ×2 (08:57→21:10)
[2017-05-15] MEDS: FAMOTIDINE 20 MG TAB GTB (08:57)
[2017-05-15] MEDS: CEFTAZIDIME 1GM/50 ML (PMX) 50 ML IVPB ×2 (09:44→21:20)
[2017-05-15] MEDS: DIGOXIN 0.125 MG TAB GTB (12:29)
[2017-05-15] MEDS: ATORVASTATIN 40 MG TAB GTB (21:11)
[2017-05-15] MEDS: INSULIN GLARGINE [LANtus] 3 ML PEN SC (21:19)
[2017-05-16] MEDS: INSULIN ASPART [NOVOLOG] 3 ML PEN SC ×4 (00:20→17:28)
[2017-05-16] MEDS: ALBUTEROL/IPRATROPIUM (NEB) 3 ML AMP NEB ×4 (01:44→20:57)
[2017-05-16] MEDS: FLUDROCORTISONE 0.1 MG TAB GTB ×3 (05:56→22:34)
[2017-05-16 06:44] LABS: ADD MAN DIFF? NO
[2017-05-16 06:47] LABS: WHITE BLOOD COUNT 7.7 10^3/ul (4.8-10.8)
[2017-05-16 06:47] LABS: BASOPHILS % 0.5 % (0.0-2.0); EOSINOPHILS # 0.2 10^3/ul (0.0-0.5); EOSINOPHILS % 3.1 % (0.0-7.0); HEMATOCRIT 33.6 % (37.0-47.0); HEMOGLOBIN 10.9 g/dl (12.0-16.0); LYMPHOCYTES # 1.3 10^3/ul (0.8-2.9); LYMPHOCYTES % 17.2 % (15.0-51.0); MEAN CORPUSCULAR HEMOGLOBIN 26.5 pg (29.0-33.0); MEAN CORPUSCULAR HGB CONC 32.4 g/dl (32.0-37.0); MEAN CORPUSCULAR VOLUME 81.6 fl (82.0-101.0); MEAN PLATELET VOLUME 8.9 fl (7.4-10.4); MONOCYTE # 0.5 10^3/ul (0.3-0.9); MONOCYTES % 6.9 % (0.0-11.0); NEUTROPHIL # 5.5 10^3/ul (1.6-7.5); NEUTROPHILS % 71.1 % (39.0-77.0); PLATELET COUNT 231 10^3/UL (140-415); RED BLOOD COUNT 4.12 10^6/ul (4.20-5.40); RED CELL DISTRIBUTION WIDTH 13.7 % (11.5-14.5)
[2017-05-16 07:13] LABS: ANION GAP 13 (8-16); BLOOD UREA NITROGEN 23 mg/dl (7-20); CALCIUM 9.4 mg/dl (8.4-10.2); CARBON DIOXIDE 35 mmol/L (21-31); CHLORIDE 101 mmol/L (97-110); CREATININE 0.57 mg/dl (0.44-1.00); GLUCOSE 135 mg/dl (70-220); POTASSIUM 3.9 mmol/L (3.5-5.1); SODIUM 145 mmol/L (135-144)
[2017-05-16] MEDS: POTASSIUM CHLORIDE 20 MEQ POWDER FOR ORAL SOLN GTB (08:32)
[2017-05-16] MEDS: POLYETHYLENE GLYCOL 17 GM PACKET GTB (08:32)
[2017-05-16] MEDS: LEVETIRACETAM (100 MG/ML) 5ML CUP GTB ×2 (08:33→21:00)
[2017-05-16] MEDS: DOXYCYCLINE 100 MG TAB GTB ×2 (08:33→21:00)
[2017-05-16] MEDS: FERROUS SULFATE 60 MG/ML 5ML CUP GTB (08:33)
[2017-05-16] MEDS: FAMOTIDINE 20 MG TAB GTB (08:34)
[2017-05-16] MEDS: MULTIVITAMINS/MINERALS TAB GTB (08:34)
[2017-05-16] MEDS: AMIODARONE 200 MG TAB GTB (08:34)
[2017-05-16] MEDS: METOPROLOL 100 MG TAB GTB ×2 (08:34→21:00)
[2017-05-16] MEDS: SPIRONOLACTONE 25 MG TAB GTB (08:34)
[2017-05-16] MEDS: LISINOPRIL 20 MG TAB GTB ×2 (08:34→21:00)
[2017-05-16] MEDS: CEFTAZIDIME 1GM/50 ML (PMX) 50 ML IVPB ×2 (08:57→21:01)
[2017-05-16] MEDS: DIGOXIN 0.125 MG TAB GTB (12:13)
[2017-05-16] MEDS: ATORVASTATIN 40 MG TAB GTB (20:59)
[2017-05-16] MEDS: INSULIN GLARGINE [LANtus] 3 ML PEN SC (21:05)
[2017-05-17] MEDS: INSULIN ASPART [NOVOLOG] 3 ML PEN SC ×4 (00:24→17:50)
[2017-05-17] MEDS: ALBUTEROL/IPRATROPIUM (NEB) 3 ML AMP NEB ×4 (01:20→20:00)
[2017-05-17] MEDS: FLUDROCORTISONE 0.1 MG TAB GTB ×3 (05:55→21:55)
[2017-05-17] MEDS: FERROUS SULFATE 60 MG/ML 5ML CUP GTB (08:52)
[2017-05-17] MEDS: LEVETIRACETAM (100 MG/ML) 5ML CUP GTB ×2 (08:53→21:55)
[2017-05-17] MEDS: DOXYCYCLINE 100 MG TAB GTB ×2 (08:53→21:55)
[2017-05-17] MEDS: POTASSIUM CHLORIDE 20 MEQ POWDER FOR ORAL SOLN GTB (08:53)
[2017-05-17] MEDS: MULTIVITAMINS/MINERALS TAB GTB (08:54)
[2017-05-17] MEDS: FAMOTIDINE 20 MG TAB GTB (08:54)
[2017-05-17] MEDS: AMIODARONE 200 MG TAB GTB (08:54)
[2017-05-17] MEDS: SPIRONOLACTONE 25 MG TAB GTB (08:54)
[2017-05-17] MEDS: LISINOPRIL 20 MG TAB GTB ×2 (08:55→21:00)
[2017-05-17] MEDS: POLYETHYLENE GLYCOL 17 GM PACKET GTB (08:55)
[2017-05-17] MEDS: METOPROLOL 100 MG TAB GTB ×2 (08:55→21:00)
[2017-05-17] MEDS: CEFTAZIDIME 1GM/50 ML (PMX) 50 ML IVPB ×2 (09:32→21:55)
[2017-05-17] MEDS: DIGOXIN 0.125 MG TAB GTB (12:38)
[2017-05-17] MEDS: ATORVASTATIN 40 MG TAB GTB (21:55)
[2017-05-17] MEDS: INSULIN GLARGINE [LANtus] 3 ML PEN SC (22:01)
[2017-05-18] MEDS: INSULIN ASPART [NOVOLOG] 3 ML PEN SC ×4 (00:05→17:36)
[2017-05-18] MEDS: ALBUTEROL/IPRATROPIUM (NEB) 3 ML AMP NEB ×4 (01:45→19:58)
[2017-05-18] MEDS: FLUDROCORTISONE 0.1 MG TAB GTB ×3 (05:17→21:59)
[2017-05-18] MEDS: CEFTAZIDIME 1GM/50 ML (PMX) 50 ML IVPB ×2 (08:40→21:57)
[2017-05-18] MEDS: DOXYCYCLINE 100 MG TAB GTB ×2 (08:41→21:59)
[2017-05-18] MEDS: FAMOTIDINE 20 MG TAB GTB (08:41)
[2017-05-18] MEDS: LISINOPRIL 20 MG TAB GTB ×2 (08:41→21:59)
[2017-05-18] MEDS: LEVETIRACETAM (100 MG/ML) 5ML CUP GTB ×2 (08:41→21:57)
[2017-05-18] MEDS: FERROUS SULFATE 60 MG/ML 5ML CUP GTB (08:41)
[2017-05-18] MEDS: AMIODARONE 200 MG TAB GTB (08:42)
[2017-05-18] MEDS: MULTIVITAMINS/MINERALS TAB GTB (08:42)
[2017-05-18] MEDS: SPIRONOLACTONE 25 MG TAB GTB (08:43)
[2017-05-18] MEDS: METOPROLOL 100 MG TAB GTB ×2 (08:43→21:59)
[2017-05-18] MEDS: POTASSIUM CHLORIDE 20 MEQ POWDER FOR ORAL SOLN GTB (08:43)
[2017-05-18] MEDS: POLYETHYLENE GLYCOL 17 GM PACKET GTB (08:43)
[2017-05-18] MEDS: DIGOXIN 0.125 MG TAB GTB (12:25)
[2017-05-18] MEDS: ATORVASTATIN 40 MG TAB GTB (21:58)
[2017-05-18] MEDS: INSULIN GLARGINE [LANtus] 3 ML PEN SC (22:01)
[2017-05-19] MEDS: ALBUTEROL/IPRATROPIUM (NEB) 3 ML AMP NEB ×4 (01:04→20:10)
[2017-05-19] MEDS: FLUDROCORTISONE 0.1 MG TAB GTB ×3 (05:11→22:16)
[2017-05-19] MEDS: INSULIN ASPART [NOVOLOG] 3 ML PEN SC ×4 (05:24→17:54)
[2017-05-19] MEDS: CEFTAZIDIME 1GM/50 ML (PMX) 50 ML IVPB (09:00)
[2017-05-19] MEDS: LEVETIRACETAM (100 MG/ML) 5ML CUP GTB ×2 (09:00→22:17)
[2017-05-19] MEDS: POTASSIUM CHLORIDE 20 MEQ POWDER FOR ORAL SOLN GTB (09:00)
[2017-05-19] MEDS: FERROUS SULFATE 60 MG/ML 5ML CUP GTB (09:01)
[2017-05-19] MEDS: FAMOTIDINE 20 MG TAB GTB (09:01)
[2017-05-19] MEDS: DOXYCYCLINE 100 MG TAB GTB ×2 (09:01→22:16)
[2017-05-19] MEDS: SPIRONOLACTONE 25 MG TAB GTB (09:01)
[2017-05-19] MEDS: POLYETHYLENE GLYCOL 17 GM PACKET GTB (09:01)
[2017-05-19] MEDS: MULTIVITAMINS/MINERALS TAB GTB (09:01)
[2017-05-19] MEDS: METOPROLOL 100 MG TAB GTB ×2 (09:02→22:15)
[2017-05-19] MEDS: LISINOPRIL 20 MG TAB GTB ×2 (09:02→22:16)
[2017-05-19] MEDS: AMIODARONE 200 MG TAB GTB (09:03)
[2017-05-19] MEDS: DIGOXIN 0.125 MG TAB GTB (14:10)
[2017-05-19] MEDS: ATORVASTATIN 40 MG TAB GTB (22:16)
[2017-05-19] MEDS: INSULIN GLARGINE [LANtus] 3 ML PEN SC (22:24)
[2017-05-20] MEDS: INSULIN ASPART [NOVOLOG] 3 ML PEN SC ×5 (00:22→23:30)
[2017-05-20] MEDS: ALBUTEROL/IPRATROPIUM (NEB) 3 ML AMP NEB ×4 (01:51→19:08)
[2017-05-20] MEDS: FLUDROCORTISONE 0.1 MG TAB GTB ×3 (06:15→23:28)
[2017-05-20 08:59] LABS: ADD MAN DIFF? NO
[2017-05-20 09:03] LABS: BASOPHIL # 0.1 10^3/ul (0.0-0.1); BASOPHILS % 0.7 % (0.0-2.0); EOSINOPHILS # 0.3 10^3/ul (0.0-0.5); EOSINOPHILS % 3.8 % (0.0-7.0); HEMATOCRIT 31.6 % (37.0-47.0); HEMOGLOBIN 10.2 g/dl (12.0-16.0); LYMPHOCYTES # 1.5 10^3/ul (0.8-2.9); LYMPHOCYTES % 18.3 % (15.0-51.0); MEAN CORPUSCULAR HEMOGLOBIN 26.5 pg (29.0-33.0); MEAN CORPUSCULAR HGB CONC 32.3 g/dl (32.0-37.0); MEAN CORPUSCULAR VOLUME 82.1 fl (82.0-101.0); MEAN PLATELET VOLUME 9.2 fl (7.4-10.4); MONOCYTE # 0.5 10^3/ul (0.3-0.9); MONOCYTES % 6.2 % (0.0-11.0); NEUTROPHIL # 5.7 10^3/ul (1.6-7.5); NEUTROPHILS % 69.6 % (39.0-77.0); PLATELET COUNT 210 10^3/UL (140-415); RED BLOOD COUNT 3.85 10^6/ul (4.20-5.40); RED CELL DISTRIBUTION WIDTH 14.5 % (11.5-14.5)
[2017-05-20 09:03] LABS: WHITE BLOOD COUNT 8.1 10^3/ul (4.8-10.8)
[2017-05-20] MEDS: FERROUS SULFATE 60 MG/ML 5ML CUP GTB (09:06)
[2017-05-20] MEDS: SPIRONOLACTONE 25 MG TAB GTB (09:06)
[2017-05-20] MEDS: LEVETIRACETAM (100 MG/ML) 5ML CUP GTB ×2 (09:06→20:39)
[2017-05-20] MEDS: POLYETHYLENE GLYCOL 17 GM PACKET GTB (09:06)
[2017-05-20] MEDS: POTASSIUM CHLORIDE 20 MEQ POWDER FOR ORAL SOLN GTB (09:06)
[2017-05-20] MEDS: DOXYCYCLINE 100 MG TAB GTB ×2 (09:07→20:40)
[2017-05-20] MEDS: FAMOTIDINE 20 MG TAB GTB (09:07)
[2017-05-20] MEDS: METOPROLOL 100 MG TAB GTB ×2 (09:07→20:40)
[2017-05-20] MEDS: AMIODARONE 200 MG TAB GTB (09:07)
[2017-05-20] MEDS: LISINOPRIL 20 MG TAB GTB ×2 (09:08→20:39)
[2017-05-20] MEDS: MULTIVITAMINS/MINERALS TAB GTB (09:08)
[2017-05-20 09:45] LABS: ANION GAP 14 (8-16); BLOOD UREA NITROGEN 23 mg/dl (7-20); CALCIUM 9.3 mg/dl (8.4-10.2); CARBON DIOXIDE 34 mmol/L (21-31); CHLORIDE 100 mmol/L (97-110); CREATININE 0.64 mg/dl (0.44-1.00); GLUCOSE 133 mg/dl (70-220); POTASSIUM 3.6 mmol/L (3.5-5.1); SODIUM 144 mmol/L (135-144)
[2017-05-20] MEDS: DIGOXIN 0.125 MG TAB GTB (14:19)
[2017-05-20] MEDS: ATORVASTATIN 40 MG TAB GTB (20:40)
[2017-05-20] MEDS: INSULIN GLARGINE [LANtus] 3 ML PEN SC (20:46)
[2017-05-21] MEDS: ALBUTEROL/IPRATROPIUM (NEB) 3 ML AMP NEB ×4 (02:11→20:22)
[2017-05-21] MEDS: FLUDROCORTISONE 0.1 MG TAB GTB ×4 (05:26→23:58)
[2017-05-21] MEDS: INSULIN ASPART [NOVOLOG] 3 ML PEN SC ×4 (05:29→23:54)
[2017-05-21] MEDS: FERROUS SULFATE 60 MG/ML 5ML CUP GTB (08:49)
[2017-05-21] MEDS: POTASSIUM CHLORIDE 20 MEQ POWDER FOR ORAL SOLN GTB (08:49)
[2017-05-21] MEDS: LEVETIRACETAM (100 MG/ML) 5ML CUP GTB ×2 (08:49→20:52)
[2017-05-21] MEDS: MULTIVITAMINS/MINERALS TAB GTB (08:49)
[2017-05-21] MEDS: DOXYCYCLINE 100 MG TAB GTB ×2 (08:50→20:52)
[2017-05-21] MEDS: POLYETHYLENE GLYCOL 17 GM PACKET GTB (08:50)
[2017-05-21] MEDS: SPIRONOLACTONE 25 MG TAB GTB (08:50)
[2017-05-21] MEDS: METOPROLOL 100 MG TAB GTB ×2 (08:50→20:53)
[2017-05-21] MEDS: AMIODARONE 200 MG TAB GTB (08:50)
[2017-05-21] MEDS: FAMOTIDINE 20 MG TAB GTB (08:50)
[2017-05-21] MEDS: LISINOPRIL 20 MG TAB GTB ×2 (08:51→20:53)
[2017-05-21] MEDS: DIGOXIN 0.125 MG TAB GTB (14:34)
[2017-05-21] MEDS: ATORVASTATIN 40 MG TAB GTB (20:52)
[2017-05-21] MEDS: INSULIN GLARGINE [LANtus] 3 ML PEN SC (20:55)
[2017-05-22] MEDS: ALBUTEROL/IPRATROPIUM (NEB) 3 ML AMP NEB ×4 (01:54→19:50)
[2017-05-22] MEDS: FLUDROCORTISONE 0.1 MG TAB GTB ×3 (06:09→21:03)
[2017-05-22] MEDS: INSULIN ASPART [NOVOLOG] 3 ML PEN SC ×4 (06:12→21:07)
[2017-05-22] MEDS: LISINOPRIL 20 MG TAB GTB ×2 (09:00→21:03)
[2017-05-22] MEDS: FERROUS SULFATE 60 MG/ML 5ML CUP GTB (09:43)
[2017-05-22] MEDS: POTASSIUM CHLORIDE 20 MEQ POWDER FOR ORAL SOLN GTB (09:43)
[2017-05-22] MEDS: SPIRONOLACTONE 25 MG TAB GTB (09:43)
[2017-05-22] MEDS: FAMOTIDINE 20 MG TAB GTB (09:43)
[2017-05-22] MEDS: LEVETIRACETAM (100 MG/ML) 5ML CUP GTB ×2 (09:43→21:00)
[2017-05-22] MEDS: METOPROLOL 100 MG TAB GTB ×2 (09:44→21:04)
[2017-05-22] MEDS: MULTIVITAMINS/MINERALS TAB GTB (09:44)
[2017-05-22] MEDS: AMIODARONE 200 MG TAB GTB (09:45)
[2017-05-22] MEDS: DOXYCYCLINE 100 MG TAB GTB ×2 (09:45→21:00)
[2017-05-22] MEDS: POLYETHYLENE GLYCOL 17 GM PACKET GTB (09:46)
[2017-05-22] MEDS: DIGOXIN 0.125 MG TAB GTB (13:09)
[2017-05-22] MEDS: ATORVASTATIN 40 MG TAB GTB (21:03)
[2017-05-22] MEDS: INSULIN GLARGINE [LANtus] 3 ML PEN SC (21:07)
[2017-05-23] MEDS: ALBUTEROL/IPRATROPIUM (NEB) 3 ML AMP NEB ×4 (01:37→20:50)
[2017-05-23] MEDS: FLUDROCORTISONE 0.1 MG TAB GTB ×3 (06:20→21:51)
[2017-05-23] MEDS: INSULIN ASPART [NOVOLOG] 3 ML PEN SC ×3 (06:21→18:18)
[2017-05-23 09:44] LABS: ADD MAN DIFF? NO
[2017-05-23 09:48] LABS: WHITE BLOOD COUNT 9.5 10^3/ul (4.8-10.8)
[2017-05-23 09:48] LABS: BASOPHILS % 0.4 % (0.0-2.0); EOSINOPHILS # 0.2 10^3/ul (0.0-0.5); EOSINOPHILS % 1.9 % (0.0-7.0); HEMATOCRIT 31.3 % (37.0-47.0); HEMOGLOBIN 10.1 g/dl (12.0-16.0); LYMPHOCYTES # 1.7 10^3/ul (0.8-2.9); LYMPHOCYTES % 18.1 % (15.0-51.0); MEAN CORPUSCULAR HEMOGLOBIN 26.8 pg (29.0-33.0); MEAN CORPUSCULAR HGB CONC 32.3 g/dl (32.0-37.0); MONOCYTE # 0.7 10^3/ul (0.3-0.9); MONOCYTES % 7.1 % (0.0-11.0); NEUTROPHIL # 6.8 10^3/ul (1.6-7.5); NEUTROPHILS % 71.7 % (39.0-77.0); PLATELET COUNT 197 10^3/UL (140-415); RED BLOOD COUNT 3.77 10^6/ul (4.20-5.40); RED CELL DISTRIBUTION WIDTH 14.6 % (11.5-14.5)
[2017-05-23 10:08] LABS: ANION GAP 12 (8-16); BLOOD UREA NITROGEN 23 mg/dl (7-20); CALCIUM 9.4 mg/dl (8.4-10.2); CARBON DIOXIDE 34 mmol/L (21-31); CHLORIDE 102 mmol/L (97-110); CREATININE 0.61 mg/dl (0.44-1.00); GLUCOSE 149 mg/dl (70-220); POTASSIUM 3.9 mmol/L (3.5-5.1); SODIUM 144 mmol/L (135-144)
[2017-05-23] MEDS: POLYETHYLENE GLYCOL 17 GM PACKET GTB (10:14)
[2017-05-23] MEDS: LEVETIRACETAM (100 MG/ML) 5ML CUP GTB ×2 (10:14→21:53)
[2017-05-23] MEDS: FERROUS SULFATE 60 MG/ML 5ML CUP GTB (10:14)
[2017-05-23] MEDS: SPIRONOLACTONE 25 MG TAB GTB (10:15)
[2017-05-23] MEDS: POTASSIUM CHLORIDE 20 MEQ POWDER FOR ORAL SOLN GTB (10:15)
[2017-05-23] MEDS: FAMOTIDINE 20 MG TAB GTB (10:15)
[2017-05-23] MEDS: MULTIVITAMINS/MINERALS TAB GTB (10:15)
[2017-05-23] MEDS: AMIODARONE 200 MG TAB GTB (10:16)
[2017-05-23] MEDS: METOPROLOL 100 MG TAB GTB ×2 (10:16→21:00)
[2017-05-23] MEDS: LISINOPRIL 20 MG TAB GTB ×2 (10:17→21:00)
[2017-05-23] MEDS: DOXYCYCLINE 100 MG TAB GTB ×2 (10:17→21:51)
[2017-05-23] MEDS: DIGOXIN 0.125 MG TAB GTB (13:14)
[2017-05-23 18:02] LABS: HAAIG REFLEX REFLEX FILED
[2017-05-23 18:48] LABS: HEPATITIS B SURFACE ANTIGEN NEGATIVE (NEGATIVE)
[2017-05-23 19:05] LABS: HEPATITIS B CORE ANTIBODY NEGATIVE (NEGATIVE); HEPATITIS C VIRAL ANTIBODY NEGATIVE (NEGATIVE)
[2017-05-23 19:06] LABS: HIV 1&2 ANTIBODY NEGATIVE (NEGATIVE)
[2017-05-23] MEDS: ATORVASTATIN 40 MG TAB GTB (21:51)
[2017-05-23] MEDS: INSULIN GLARGINE [LANtus] 3 ML PEN SC (22:05)
[2017-05-24] MEDS: INSULIN ASPART [NOVOLOG] 3 ML PEN SC ×4 (00:33→18:00)
[2017-05-24] MEDS: ALBUTEROL/IPRATROPIUM (NEB) 3 ML AMP NEB ×4 (01:51→19:35)
[2017-05-24] MEDS: FLUDROCORTISONE 0.1 MG TAB GTB ×3 (06:06→21:13)
[2017-05-24] MEDS: POTASSIUM CHLORIDE 20 MEQ POWDER FOR ORAL SOLN GTB (09:42)
[2017-05-24] MEDS: MULTIVITAMINS/MINERALS TAB GTB (09:42)
[2017-05-24] MEDS: LEVETIRACETAM (100 MG/ML) 5ML CUP GTB ×2 (09:42→21:13)
[2017-05-24] MEDS: FERROUS SULFATE 60 MG/ML 5ML CUP GTB (09:42)
[2017-05-24] MEDS: DOXYCYCLINE 100 MG TAB GTB ×2 (09:42→21:12)
[2017-05-24] MEDS: LISINOPRIL 20 MG TAB GTB ×2 (09:43→21:13)
[2017-05-24] MEDS: SPIRONOLACTONE 25 MG TAB GTB (09:43)
[2017-05-24] MEDS: METOPROLOL 100 MG TAB GTB ×2 (09:43→21:13)
[2017-05-24] MEDS: FAMOTIDINE 20 MG TAB GTB (09:43)
[2017-05-24] MEDS: AMIODARONE 200 MG TAB GTB (09:44)
[2017-05-24] MEDS: POLYETHYLENE GLYCOL 17 GM PACKET GTB (09:44)
[2017-05-24] MEDS: DIGOXIN 0.125 MG TAB GTB (13:49)
[2017-05-24] MEDS: ATORVASTATIN 40 MG TAB GTB (21:12)
[2017-05-24] MEDS: INSULIN GLARGINE [LANtus] 3 ML PEN SC (21:14)
[2017-05-25] MEDS: INSULIN ASPART [NOVOLOG] 3 ML PEN SC ×4 (00:19→17:53)
[2017-05-25] MEDS: ALBUTEROL/IPRATROPIUM (NEB) 3 ML AMP NEB ×4 (01:55→19:25)
[2017-05-25] MEDS: FLUDROCORTISONE 0.1 MG TAB GTB ×3 (06:09→22:26)
[2017-05-25] MEDS: POTASSIUM CHLORIDE 20 MEQ POWDER FOR ORAL SOLN GTB (09:36)
[2017-05-25] MEDS: FERROUS SULFATE 60 MG/ML 5ML CUP GTB (09:36)
[2017-05-25] MEDS: LEVETIRACETAM (100 MG/ML) 5ML CUP GTB ×2 (09:36→20:45)
[2017-05-25] MEDS: POLYETHYLENE GLYCOL 17 GM PACKET GTB (09:36)
[2017-05-25] MEDS: FAMOTIDINE 20 MG TAB GTB (09:38)
[2017-05-25] MEDS: MULTIVITAMINS/MINERALS TAB GTB (09:38)
[2017-05-25] MEDS: SPIRONOLACTONE 25 MG TAB GTB (09:38)
[2017-05-25] MEDS: DOXYCYCLINE 100 MG TAB GTB ×2 (09:38→20:44)
[2017-05-25] MEDS: AMIODARONE 200 MG TAB GTB (09:40)
[2017-05-25] MEDS: LISINOPRIL 20 MG TAB GTB ×2 (09:40→20:44)
[2017-05-25] MEDS: METOPROLOL 100 MG TAB GTB ×2 (09:40→20:45)
[2017-05-25] MEDS: DIGOXIN 0.125 MG TAB GTB (12:31)
[2017-05-25] MEDS: ATORVASTATIN 40 MG TAB GTB (20:44)
[2017-05-25] MEDS: INSULIN GLARGINE [LANtus] 3 ML PEN SC (20:47)
[2017-05-25] MEDS: SOD CHLORIDE 0.9% 500 ML IV (23:34)
[2017-05-26] MEDS: ALBUTEROL/IPRATROPIUM (NEB) 3 ML AMP NEB ×3 (01:08→19:53)
[2017-05-26 05:38] LABS: ADD MAN DIFF? NO
[2017-05-26 05:42] LABS: WHITE BLOOD COUNT 8.8 10^3/ul (4.8-10.8)
[2017-05-26 05:42] LABS: BASOPHILS % 0.3 % (0.0-2.0); EOSINOPHILS # 0.2 10^3/ul (0.0-0.5); EOSINOPHILS % 1.9 % (0.0-7.0); HEMATOCRIT 31.5 % (37.0-47.0); HEMOGLOBIN 10.2 g/dl (12.0-16.0); LYMPHOCYTES # 1.6 10^3/ul (0.8-2.9); LYMPHOCYTES % 17.5 % (15.0-51.0); MEAN CORPUSCULAR HGB CONC 32.4 g/dl (32.0-37.0); MEAN CORPUSCULAR VOLUME 83.3 fl (82.0-101.0); MEAN PLATELET VOLUME 8.7 fl (7.4-10.4); MONOCYTE # 0.7 10^3/ul (0.3-0.9); MONOCYTES % 7.7 % (0.0-11.0); NEUTROPHIL # 6.3 10^3/ul (1.6-7.5); NEUTROPHILS % 71.5 % (39.0-77.0); PLATELET COUNT 178 10^3/UL (140-415); RED BLOOD COUNT 3.78 10^6/ul (4.20-5.40); RED CELL DISTRIBUTION WIDTH 14.8 % (11.5-14.5)
[2017-05-26] MEDS: FLUDROCORTISONE 0.1 MG TAB GTB ×3 (06:05→21:16)
[2017-05-26] MEDS: INSULIN ASPART [NOVOLOG] 3 ML PEN SC ×5 (06:08→23:20)
[2017-05-26 06:30] LABS: ANION GAP 13 (8-16); BLOOD UREA NITROGEN 25 mg/dl (7-20); CALCIUM 9.4 mg/dl (8.4-10.2); CARBON DIOXIDE 31 mmol/L (21-31); CHLORIDE 104 mmol/L (97-110); CREATININE 0.72 mg/dl (0.44-1.00); GLUCOSE 139 mg/dl (70-220); POTASSIUM 3.9 mmol/L (3.5-5.1); SODIUM 144 mmol/L (135-144)
[2017-05-26] MEDS: LISINOPRIL 20 MG TAB GTB ×2 (09:00→21:17)
[2017-05-26] MEDS: METOPROLOL 100 MG TAB GTB ×2 (09:00→21:17)
[2017-05-26] MEDS: AMIODARONE 200 MG TAB GTB (09:00)
[2017-05-26] MEDS: LEVETIRACETAM (100 MG/ML) 5ML CUP GTB ×2 (09:38→21:16)
[2017-05-26] MEDS: MULTIVITAMINS/MINERALS TAB GTB (09:39)
[2017-05-26] MEDS: DOXYCYCLINE 100 MG TAB GTB ×2 (09:39→21:16)
[2017-05-26] MEDS: POLYETHYLENE GLYCOL 17 GM PACKET GTB (09:39)
[2017-05-26] MEDS: FERROUS SULFATE 60 MG/ML 5ML CUP GTB (09:40)
[2017-05-26] MEDS: FAMOTIDINE 20 MG TAB GTB (09:40)
[2017-05-26] MEDS: POTASSIUM CHLORIDE 20 MEQ POWDER FOR ORAL SOLN GTB (09:40)
[2017-05-26] MEDS: SPIRONOLACTONE 25 MG TAB GTB (09:41)
[2017-05-26] MEDS: DIGOXIN 0.125 MG TAB GTB (12:50)
[2017-05-26] MEDS: ATORVASTATIN 40 MG TAB GTB (21:16)
[2017-05-26] MEDS: INSULIN GLARGINE [LANtus] 3 ML PEN SC (21:29)
[2017-05-27] MEDS: ALBUTEROL/IPRATROPIUM (NEB) 3 ML AMP NEB ×3 (01:27→13:55)
[2017-05-27] MEDS: FLUDROCORTISONE 0.1 MG TAB GTB ×3 (05:28→21:07)
[2017-05-27] MEDS: INSULIN ASPART [NOVOLOG] 3 ML PEN SC ×3 (05:29→18:06)
[2017-05-27 06:14] LABS: ADD MAN DIFF? NO
[2017-05-27 06:22] LABS: BASOPHIL # 0.1 10^3/ul (0.0-0.1); BASOPHILS % 0.6 % (0.0-2.0); EOSINOPHILS # 0.2 10^3/ul (0.0-0.5); EOSINOPHILS % 2.6 % (0.0-7.0); HEMATOCRIT 31.2 % (37.0-47.0); HEMOGLOBIN 10.1 g/dl (12.0-16.0); LYMPHOCYTES # 1.4 10^3/ul (0.8-2.9); LYMPHOCYTES % 17.5 % (15.0-51.0); MEAN CORPUSCULAR HEMOGLOBIN 26.7 pg (29.0-33.0); MEAN CORPUSCULAR HGB CONC 32.4 g/dl (32.0-37.0); MEAN CORPUSCULAR VOLUME 82.5 fl (82.0-101.0); MEAN PLATELET VOLUME 8.9 fl (7.4-10.4); MONOCYTE # 0.7 10^3/ul (0.3-0.9); MONOCYTES % 8.4 % (0.0-11.0); NEUTROPHIL # 5.5 10^3/ul (1.6-7.5); NEUTROPHILS % 69.5 % (39.0-77.0); PLATELET COUNT 189 10^3/UL (140-415); RED BLOOD COUNT 3.78 10^6/ul (4.20-5.40); RED CELL DISTRIBUTION WIDTH 14.6 % (11.5-14.5)
[2017-05-27 06:22] LABS: WHITE BLOOD COUNT 7.9 10^3/ul (4.8-10.8)
[2017-05-27 06:46] LABS: ANION GAP 11 (8-16); BLOOD UREA NITROGEN 22 mg/dl (7-20); CALCIUM 9.3 mg/dl (8.4-10.2); CARBON DIOXIDE 34 mmol/L (21-31); CHLORIDE 105 mmol/L (97-110); CREATININE 0.63 mg/dl (0.44-1.00); GLUCOSE 130 mg/dl (70-220); POTASSIUM 3.8 mmol/L (3.5-5.1); SODIUM 146 mmol/L (135-144)
[2017-05-27] MEDS: DOXYCYCLINE 100 MG TAB GTB ×2 (09:27→21:07)
[2017-05-27] MEDS: POTASSIUM CHLORIDE 20 MEQ POWDER FOR ORAL SOLN GTB (09:27)
[2017-05-27] MEDS: POLYETHYLENE GLYCOL 17 GM PACKET GTB (09:27)
[2017-05-27] MEDS: MULTIVITAMINS/MINERALS TAB GTB (09:28)
[2017-05-27] MEDS: LISINOPRIL 20 MG TAB GTB ×2 (09:28→21:08)
[2017-05-27] MEDS: AMIODARONE 200 MG TAB GTB (09:28)
[2017-05-27] MEDS: SPIRONOLACTONE 25 MG TAB GTB (09:28)
[2017-05-27] MEDS: FAMOTIDINE 20 MG TAB GTB (09:29)
[2017-05-27] MEDS: LEVETIRACETAM (100 MG/ML) 5ML CUP GTB ×2 (09:29→21:07)
[2017-05-27] MEDS: METOPROLOL 100 MG TAB GTB ×2 (09:29→21:06)
[2017-05-27] MEDS: FERROUS SULFATE 60 MG/ML 5ML CUP GTB (09:29)
[2017-05-27] MEDS: DIGOXIN 0.125 MG TAB GTB (13:29)
[2017-05-27] MEDS: INSULIN GLARGINE [LANtus] 3 ML PEN SC (21:28)
[2017-05-27] MEDS: ATORVASTATIN 40 MG TAB GTB (21:44)
== END 2017-05-27 22:10 | DRG 31 ==
LOC: MS4 05-22 17:23 → ICU 03-21 20:50 → TEL 03-24 23:10 → E/R 17:47 → MS2 04-01 16:18 → PP2 19:25
PROC: 00163J6 Bypass Cerebral Ventricle to Peritoneal Cavity with Synthetic Substitute, Percutaneous Approach (ICD-10-PCS; principal; 2017-03-21 17:48)
PROC: 00P63JZ Removal of Synthetic Substitute from Cerebral Ventricle, Percutaneous Approach (ICD-10-PCS; 2017-03-21 17:48)
DX: T85.730A Infection and inflammatory reaction due to ventricular intracranial (communicating) shunt, initial encounter (principal); G93.40 Encephalopathy, unspecified; T85.09XA Other mechanical complication of ventricular intracranial (communicating) shunt, initial encounter; J96.10 Chronic respiratory failure, unspecified whether with hypoxia or hypercapnia; L03.818 Cellulitis of other sites; N17.9 Acute kidney failure, unspecified; N39.0 Urinary tract infection, site not specified; E87.0 Hyperosmolality and hypernatremia; B37.0 Candidal stomatitis; J40 Bronchitis, not specified as acute or chronic; J44.9 Chronic obstructive pulmonary disease, unspecified; I10 Essential (primary) hypertension; Z87.891 Personal history of nicotine dependence; E11.9 Type 2 diabetes mellitus without complications; E86.0 Dehydration; G31.84 Mild cognitive impairment of uncertain or unknown etiology; Z95.0 Presence of cardiac pacemaker; M21.372 Foot drop, left foot; M21.371 Foot drop, right foot; R13.10 Dysphagia, unspecified; Z93.1 Gastrostomy status; G40.909 Epilepsy, unspecified, not intractable, without status epilepticus; B96.1 Klebsiella pneumoniae [K. pneumoniae] as the cause of diseases classified elsewhere; B95.62 Methicillin resistant Staphylococcus aureus infection as the cause of diseases classified elsewhere; E87.6 Hypokalemia; I48.0 Paroxysmal atrial fibrillation; R23.8 Other skin changes; B96.5 Pseudomonas (aeruginosa) (mallei) (pseudomallei) as the cause of diseases classified elsewhere
CPT/HCPCS: 36415; 70450; 70496; 71045; 74230; 80048; 80053; 80061; 80202; 81001; 82565; 82945; 82962; 83036; 83605; 83690; 84145; 84157; 84166; 84439; 84443; 84484; 84520; 85025; 85576; 85610; 85730; 86703; 86704; 86709; 86803; 87040; 87070; 87081; 87086; 87340; 87400; 88300; 89051; 92507; 92526; 92610; 92611; 93005; 93971; 94003; 94640; 94664; 97110; 97163; 97530; 99285-25

== ENCOUNTER 2017-06-27 21:33 | Emergency (ER) | payer MEDICARE, BC | END 2017-06-28 02:50 | disposition short-term general hospital (02) | LOC: E/R 06-28 02:50 | DX: S00.511A Abrasion of lip, initial encounter (principal); J44.9 Chronic obstructive pulmonary disease, unspecified; E11.9 Type 2 diabetes mellitus without complications; R51 Headache; W06.XXXA Fall from bed, initial encounter; Y92.9 Unspecified place or not applicable; Z79.4 Long term (current) use of insulin | CPT/HCPCS: 70450; 99285-25 ==